=== PATIENT | female | born 1950 | race Caucasian/White ===

== ENCOUNTER → 2017-09-30 14:54 | Outpatient (CLI) | payer MEDICARE, SELFPAY ==
[2017-09-30 17:38] LABS: Absolute Lymphocyte Count 2.61 X10^3/ul (0.83-4.51); Absolute Neutrophil Count 6.1 X10^3/uL (2.0-7.7); Basophil# 0.04 X10^3/uL; Basophil% 0.4 % (0-1); Eosinophil# 0.18 X10^3/uL; Eosinophils% 1.9 % (0-5); Hematocrit 39.9 % (37-47); Hemoglobin 12.9 g/dl (12.0-15.0); Lymphocyte # 2.61 X10^3/ul (4.0); Mean Corp Hgb Conc 32.3 g/gl (32-36); Mean Corpuscular Volume 86.6 fL (81-99); Mean Platelet Vol. 10.8 fl (6.2-12.0); Monocyte# 0.77 X10^3/uL; Neutrophil # 6.06 X10^3/uL (2.7-7.7); Neutrophil % 62.5 % (47-70); Platelet Count 356 K/mm3 (150-450); RBC Distribution Width CV 13.7 % (11.6-14.6); Red Blood Count 4.61 M/mm3 (4.2-5.4); White Blood Count 9.7 K/mm3 (4.4-11.0)
[2017-09-30 17:54] LABS: POSITIVE COUNT NO; POSITIVE DIFFERENTIAL NO; POSITIVE MORPHOLOGY NO
[2017-09-30 18:01] LABS: ALB/GLOB Ratio 0.9 RATIO (0.9-2.4); AST(SGOT) 20 U/L (15-37); Alanine Aminotransfer ALT/SGPT 32 U/L (13-56); Albumin, Serum 3.7 g/dL (3.2-5.0); Alkaline Phosphatase 108 U/L (45-117); Anion Gap 11 (5-15); BUN 18 mg/dL (7-18); BUN/Creat Ratio 25.5 RATIO (10-20); Calcium,Total 9.4 mg/dL (8.5-10.1); Chloride 103 mmol/L (98-107); Cholesterol 142 mg/dL (200); Creatinine, Serum 0.71 mg/dL (0.55-1.02); EST Glomerular Filtration Rate 88 mL/min (>60); Est Glom Filt Rate - Afr Amer 106 mL/min (>60); Globulin 4.2 g/dL (2.2-4.2); Glucose 89 mg/dL (74-106); High Density Lipoprotein 50 mg/dL; Potassium 3.7 mmol/L (3.5-5.1); Protein, Total 7.9 g/dL (6.4-8.2); Sodium Level 140 mmol/L (136-145); Thyroid Stim Hormone (TSH) 1.54 uIU/mL (0.358-3.74); Triglycerides 134 mg/dL; Very Low Density Lipoprotein 27 mg/dL (5-40)
[2017-10-01 09:12] LABS: Vitamin D,25 Hydroxy 11.2 ng/mL (19.95-100.01)
[2017-10-02 11:38] LABS: Hep C Antibodies <0.1 s/co ratio (0.0-0.9)
== END ==
PROVIDERS: Family Provider Family Medicine Geriatric Medicine; PCP Family Medicine Geriatric Medicine; Visit Provider Family Medicine Geriatric Medicine
DX: E11.9 Type 2 diabetes mellitus without complications (principal); I10 Essential (primary) hypertension; E78.4 Other hyperlipidemia; E55.9 Vitamin D deficiency, unspecified; Z13.89 Encounter for screening for other disorder
CPT/HCPCS: 36415; 80053; 80061; 82306; 84443; 85025; 86803

== ENCOUNTER → 2017-10-23 08:41 | Outpatient (CLI) | payer MEDICARE, SELFPAY ==
--- NOTE | 2017-10-23 06:41 | HPBI_ITS ---
MAMMOGRAPHY - BILATERAL SCREENING REASON FOR EXAM: Female, 67 years old. Routine annual screening examination. PERTINENT HISTORY: Non-contributory. TECHNIQUE: Digital bilateral breast tomi (3D mammographic acquisition) in the CC and MLO projections. 2-D mediolateral oblique (MLO) and craniocaudad (CC) views of both breasts were obtained. CAD: Full Field Digital Mammography with Computer Added Detection was performed. COMPARISON: Comparison is made with prior outside examination dated December 04, 2015. FINDINGS: Breast Composition: The breasts are almost entirely fatty. There are no dominant masses or suspicious calcifications. Stable 6.5 mm well-defined nodule in the anterior superior lateral portion of the left breast. This most likely represent a small lymph node. Stable bilateral benign appearing axillary lymph nodes. No other significant abnormalities are identified. There has been no significant change since the prior study. HPBI/SCREENING MAMM (CAD), BILAT IMPRESSION: Stable bilateral screening mammogram. Yearly follow-up mammogram recommended. (A) ASSESSMENT CATEGORY: BIRADS Category 2: Benign. A letter regarding these results will be sent to the patient by the facility within 30 days. Approximately 10% of breast cancers are not detected by mammography. A normal mammogram should not delay biopsy of a clinically suspicious abnormality. [id number] Electronically Signed: Alden Berg MD at 9:56 EST Tel [phone], Service support ,
== END ==
PROVIDERS: Family Provider Family Medicine Geriatric Medicine; PCP Family Medicine Geriatric Medicine; Visit Provider Family Medicine Geriatric Medicine
DX: Z12.31 Encounter for screening mammogram for malignant neoplasm of breast (principal)
CPT/HCPCS: 77063; 77067

== ENCOUNTER → 2018-03-31 11:29 | Outpatient (CLI) | payer MEDICARE, SELFPAY ==
[2018-03-31 12:35] LABS: Absolute Lymphocyte Count 2.01 X10^3/ul (0.83-4.51); Absolute Neutrophil Count 3.9 X10^3/uL (2.0-7.7); Basophil# 0.03 X10^3/uL; Basophil% 0.4 % (0-1); Eosinophil# 0.26 X10^3/uL; Eosinophils% 3.8 % (0-5); Hemoglobin 12.6 g/dl (12.0-15.0); Lymphocyte # 2.01 X10^3/ul (4.0); Lymphocyte % 29.7 % (19-41); Mean Corp Hgb Conc 32.3 g/gl (32-36); Mean Corpuscular Volume 86.7 fL (81-99); Mean Platelet Vol. 10.7 fl (6.2-12.0); Monocyte# 0.59 X10^3/uL; Monocyte% 8.7 % (0-10); Neutrophil # 3.87 X10^3/uL (2.7-7.7); Neutrophil % 57.3 % (47-70); Platelet Count 314 K/mm3 (150-450); RBC Distribution Width CV 13.2 % (11.6-14.6); RBC Distribution Width SD 40.5 fl (35.1-43.9); White Blood Count 6.8 K/mm3 (4.4-11.0)
[2018-03-31 12:40] LABS: POSITIVE COUNT NO; POSITIVE DIFFERENTIAL NO; POSITIVE MORPHOLOGY NO
[2018-03-31 12:54] LABS: ALB/GLOB Ratio 0.8 RATIO (0.9-2.4); AST(SGOT) 21 U/L (15-37); Alanine Aminotransfer ALT/SGPT 30 U/L (13-56); Albumin, Serum 3.5 g/dL (3.2-5.0); Alkaline Phosphatase 101 U/L (45-117); Anion Gap 7 (5-15); BUN 11 mg/dL (7-18); BUN/Creat Ratio 14.7 RATIO (10-20); Calcium,Total 9.4 mg/dL (8.5-10.1); Chloride 104 mmol/L (98-107); Cholesterol 102 mg/dL (200); Creatinine, Serum 0.75 mg/dL (0.55-1.02); EST Glomerular Filtration Rate 82 mL/min (>60); Est Glom Filt Rate - Afr Amer 99 mL/min (>60); Globulin 4.5 g/dL (2.2-4.2); Glucose 92 mg/dL (74-106); High Density Lipoprotein 43 mg/dL; Potassium 3.7 mmol/L (3.5-5.1); Sodium Level 140 mmol/L (136-145); Thyroid Stim Hormone (TSH) 1.58 uIU/mL (0.358-3.74); Triglycerides 129 mg/dL; Very Low Density Lipoprotein 26 mg/dL (5-40)
[2018-04-01 08:36] LABS: Vitamin D,25 Hydroxy 32.8 ng/mL (29.95-100.01)
== END ==
PROVIDERS: Family Provider Family Medicine Geriatric Medicine; PCP Family Medicine Geriatric Medicine; Visit Provider Family Medicine Geriatric Medicine
DX: E11.9 Type 2 diabetes mellitus without complications (principal); I10 Essential (primary) hypertension; E78.4 Other hyperlipidemia; E55.9 Vitamin D deficiency, unspecified
CPT/HCPCS: 36415; 80053; 80061; 82306; 84443; 85025

== ENCOUNTER → 2018-10-01 15:02 | Outpatient (CLI) | payer MEDICARE, SELFPAY ==
[2018-10-01 17:01] LABS: Absolute Lymphocyte Count 2.09 X10^3/ul (0.83-4.51); Absolute Neutrophil Count 4.3 X10^3/uL (2.0-7.7); Basophil# 0.04 X10^3/uL; Basophil% 0.5 % (0-1); Eosinophil# 0.25 X10^3/uL; Eosinophils% 3.4 % (0-5); Hematocrit 41.4 % (37-47); Hemoglobin 12.6 g/dl (12.0-15.0); Lymphocyte # 2.09 X10^3/ul (4.0); Lymphocyte % 28.4 % (19-41); Mean Corp Hgb Conc 30.4 g/gl (32-36); Mean Corpuscular Hgb 26.8 pg (27.0-32.0); Mean Corpuscular Volume 87.9 fL (81-99); Mean Platelet Vol. 10.3 fl (6.2-12.0); Monocyte# 0.64 X10^3/uL; Monocyte% 8.7 % (0-10); Neutrophil # 4.31 X10^3/uL (2.7-7.7); Neutrophil % 58.6 % (47-70); Platelet Count 305 K/mm3 (150-450); RBC Distribution Width SD 44.9 fl (35.1-43.9); Red Blood Count 4.71 M/mm3 (4.2-5.4); White Blood Count 7.4 K/mm3 (4.4-11.0)
[2018-10-01 17:02] LABS: POSITIVE COUNT NO; POSITIVE DIFFERENTIAL NO; POSITIVE MORPHOLOGY NO
[2018-10-01 17:15] LABS: Vitamin D,25 Hydroxy 18.4 ng/mL (29.95-100.01)
[2018-10-01 17:28] LABS: BUN 13 mg/dL (7-18); Creatinine, Serum 0.73 mg/dL (0.55-1.02); Glucose 118 mg/dL (74-106)
[2018-10-01 17:29] LABS: ALB/GLOB Ratio 0.9 RATIO (0.9-2.4); AST(SGOT) 21 U/L (15-37); Alanine Aminotransfer ALT/SGPT 32 U/L (13-56); Albumin, Serum 3.6 g/dL (3.2-5.0); Alkaline Phosphatase 107 U/L (45-117); Anion Gap 11 (5-15); BUN/Creat Ratio 17.9 RATIO (10-20); Calcium,Total 9.3 mg/dL (8.5-10.1); Chloride 105 mmol/L (98-107); Cholesterol 99 mg/dL (200); EST Glomerular Filtration Rate 85 mL/min (>60); Est Glom Filt Rate - Afr Amer 102 mL/min (>60); Globulin 4.2 g/dL (2.2-4.2); High Density Lipoprotein 47 mg/dL; Potassium 3.9 mmol/L (3.5-5.1); Protein, Total 7.8 g/dL (6.4-8.2); Sodium Level 141 mmol/L (136-145); Thyroid Stim Hormone (TSH) 1.79 uIU/mL (0.358-3.74); Triglycerides 166 mg/dL; Very Low Density Lipoprotein 33 mg/dL (5-40)
== END ==
PROVIDERS: Family Provider Family Medicine Geriatric Medicine; PCP Family Medicine Geriatric Medicine; Visit Provider Family Medicine Geriatric Medicine
DX: E11.9 Type 2 diabetes mellitus without complications (principal); I10 Essential (primary) hypertension; E78.49 Other hyperlipidemia; E55.9 Vitamin D deficiency, unspecified
CPT/HCPCS: 36415; 80053; 80061; 82306; 84443; 85025

== ENCOUNTER → 2019-04-07 10:29 | Outpatient (CLI) | payer MEDICARE, SELFPAY ==
[2019-04-07 12:15] LABS: Absolute Neutrophil Count 7.2 X10^3/uL (2.0-7.7); Basophil# 0.04 X10^3/uL; Basophil% 0.4 % (0-1); Eosinophil# 0.21 X10^3/uL; Eosinophils% 2.1 % (0-5); Hematocrit 37.9 % (37-47); Hemoglobin 12.3 g/dL (12.0-15.0); Lymphocyte % 19.8 % (19-41); Mean Corp Hgb Conc 32.5 g/dL (32-36); Mean Corpuscular Hgb 28.5 pg (27.0-32.0); Mean Corpuscular Volume 87.7 fL (81-99); Mean Platelet Vol. 10.1 fl (6.2-12.0); Monocyte# 0.63 X10^3/uL; Monocyte% 6.3 % (0-10); NRBC Flagged by Analyzer 0 % (0-5); Neutrophil # 7.15 X10^3/uL (2.7-7.7); Neutrophil % 70.9 % (47-70); Platelet Count 296 K/mm3 (150-450); RBC Distribution Width CV 13.3 % (11.6-14.6); RBC Distribution Width SD 43.1 fl (35.1-43.9); Red Blood Count 4.32 M/mm3 (4.2-5.4); White Blood Count 10.1 K/mm3 (4.4-11.0)
[2019-04-07 12:35] LABS: Vitamin D,25 Hydroxy 16.9 ng/mL (29.95-100.01)
[2019-04-07 12:37] LABS: ALB/GLOB Ratio 0.8 RATIO (0.9-2.4); AST(SGOT) 16 U/L (15-37); Alanine Aminotransfer ALT/SGPT 30 U/L (13-56); Albumin, Serum 3.2 g/dL (3.2-5.0); Alkaline Phosphatase 104 U/L (45-117); Anion Gap 4 (5-15); BUN 15 mg/dL (7-18); BUN/Creat Ratio 23.1 RATIO (10-20); Calcium,Total 9.1 mg/dL (8.5-10.1); Chloride 109 mmol/L (98-107); Cholesterol 94 mg/dL (200); Creatinine, Serum 0.65 mg/dL (0.55-1.02); EST Glomerular Filtration Rate 97 mL/min (>60); Est Glom Filt Rate - Afr Amer 117 mL/min (>60); Glucose 117 mg/dL (74-106); High Density Lipoprotein 62 mg/dL; Potassium 3.7 mmol/L (3.5-5.1); Protein, Total 7.2 g/dL (6.4-8.2); Sodium Level 141 mmol/L (136-145); Thyroid Stim Hormone (TSH) 1.19 uIU/mL (0.358-3.74); Triglycerides 78 mg/dL; Very Low Density Lipoprotein 16 mg/dL (5-40)
== END ==
PROVIDERS: Family Provider Family Medicine Geriatric Medicine; PCP Family Medicine Geriatric Medicine; Visit Provider Family Medicine Geriatric Medicine
DX: E11.9 Type 2 diabetes mellitus without complications (principal); I10 Essential (primary) hypertension; E78.5 Hyperlipidemia, unspecified; E55.9 Vitamin D deficiency, unspecified
CPT/HCPCS: 36415; 80053; 80061; 82306; 84443; 85025

== ENCOUNTER → 2019-10-06 09:17 | Outpatient (CLI) | payer MEDICARE, SELFPAY ==
[2019-10-06 12:31] LABS: Absolute Lymphocyte Count 2.16 X10^3/uL (0.83-4.51); Absolute Neutrophil Count 4.9 X10^3/uL (2.0-7.7); Basophil# 0.04 X10^3/uL; Basophil% 0.5 % (0-1); Eosinophil# 0.27 X10^3/uL; Eosinophils% 3.3 % (0-5); Hematocrit 39.9 % (37-47); Hemoglobin 12.5 g/dL (12.0-15.0); Lymphocyte # 2.16 X10^3/ul (4.0); Lymphocyte % 26.7 % (19-41); Mean Corp Hgb Conc 31.3 g/dL (32-36); Mean Corpuscular Hgb 27.6 pg (27.0-32.0); Mean Corpuscular Volume 88.1 fL (81-99); Mean Platelet Vol. 10.3 fl (6.2-12.0); Monocyte# 0.72 X10^3/uL; Monocyte% 8.9 % (0-10); NRBC Flagged by Analyzer 0 % (0-5); Neutrophil # 4.87 X10^3/uL (2.7-7.7); Neutrophil % 60.1 % (47-70); Platelet Count 328 K/mm3 (150-450); RBC Distribution Width CV 13.7 % (11.6-14.6); RBC Distribution Width SD 43.6 fl (35.1-43.9); Red Blood Count 4.53 M/mm3 (4.2-5.4); White Blood Count 8.1 K/mm3 (4.4-11.0)
[2019-10-06 12:58] LABS: Vitamin D,25 Hydroxy 21.6 ng/mL (29.95-100.01)
[2019-10-06 12:59] LABS: ALB/GLOB Ratio 0.8 RATIO (0.9-2.4); AST(SGOT) 27 U/L (15-37); Alanine Aminotransfer ALT/SGPT 41 U/L (13-56); Albumin, Serum 3.6 g/dL (3.2-5.0); Alkaline Phosphatase 103 U/L (45-117); Anion Gap 6 (5-15); BUN 16 mg/dL (7-18); BUN/Creat Ratio 20.9 RATIO (10-20); Calcium,Total 9.5 mg/dL (8.5-10.1); Chloride 103 mmol/L (98-107); Cholesterol 102 mg/dL (200); Creatinine, Serum 0.76 mg/dL (0.55-1.02); EST Glomerular Filtration Rate 80 mL/min (>60); Est Glom Filt Rate - Afr Amer 96 mL/min (>60); Globulin 4.4 g/dL (2.2-4.2); Glucose 136 mg/dL (74-106); High Density Lipoprotein 48 mg/dL; Potassium 3.9 mmol/L (3.5-5.1); Sodium Level 138 mmol/L (136-145); Thyroid Stim Hormone (TSH) 1.57 uIU/mL (0.358-3.74); Triglycerides 146 mg/dL; Very Low Density Lipoprotein 29 mg/dL (5-40)
== END ==
PROVIDERS: PCP Family Medicine Geriatric Medicine; Visit Provider Family Medicine Geriatric Medicine
DX: E11.9 Type 2 diabetes mellitus without complications (principal); E55.9 Vitamin D deficiency, unspecified; E78.5 Hyperlipidemia, unspecified; R53.83 Other fatigue
CPT/HCPCS: 36415; 80053; 80061; 82306; 84443; 85025

== ENCOUNTER → 2020-02-23 11:43 | Outpatient (CLI) | payer MEDICARE, SELFPAY ==
--- NOTE | 2020-02-23 11:51 | RAD_ITS ---
STUDY: X-RAY - CERVICAL SPINE REASON FOR EXAM: Female, 69 years old. NECK PAIN. TECHNIQUE: 3 view(s) of the cervical spine were obtained. COMPARISON: None FINDINGS: Normal anterior atlantoaxial articulation. Normal odontoid process. Normal cervical lordosis. Congenital fusion of C2 and C3. Degenerative disc disease at the C4-5, C5-6, and C6-7 levels. Clip in the neck. RAD/Cerv Spine 2 or 3 Views IMPRESSION: Congenital fusion of C2 and C3. Degenerative disc disease at the C4-5, C5-6, and C6-7 levels. Electronically Signed: Arias Hwang MD at 23:13 EDT Tel , Service support ,
== END ==
PROVIDERS: PCP Family Medicine Geriatric Medicine; Referring Provider Family Medicine Geriatric Medicine; Visit Provider Family Medicine Geriatric Medicine
DX: M54.2 Cervicalgia (principal)
CPT/HCPCS: 72040

== ENCOUNTER → 2020-04-05 11:17 | Outpatient (CLI) | payer MEDICARE, SELFPAY ==
[2020-04-05 11:58] LABS: Absolute Lymphocyte Count 2.04 X10^3/uL (0.83-4.51); Absolute Neutrophil Count 6.5 X10^3/uL (2.0-7.7); Basophil# 0.03 X10^3/uL; Basophil% 0.3 % (0-1); Eosinophil# 0.16 X10^3/uL; Eosinophils% 1.7 % (0-5); Hematocrit 39.8 % (37-47); Hemoglobin 12.4 g/dL (12.0-15.0); Lymphocyte # 2.04 X10^3/ul (4.0); Lymphocyte % 21.8 % (19-41); Mean Corp Hgb Conc 31.2 g/dL (32-36); Mean Corpuscular Hgb 27.7 pg (27.0-32.0); Mean Corpuscular Volume 88.8 fL (81-99); Mean Platelet Vol. 10.6 fl (6.2-12.0); Monocyte# 0.63 X10^3/uL; Monocyte% 6.7 % (0-10); NRBC Flagged by Analyzer 0 % (0-5); Neutrophil # 6.47 X10^3/uL (2.7-7.7); Neutrophil % 69.1 % (47-70); Platelet Count 332 K/mm3 (150-450); RBC Distribution Width CV 14.2 % (11.6-14.6); RBC Distribution Width SD 45.7 fl (35.1-43.9); Red Blood Count 4.48 M/mm3 (4.2-5.4); White Blood Count 9.4 K/mm3 (4.4-11.0)
[2020-04-05 12:21] LABS: Vitamin D,25 Hydroxy 21.5 ng/mL
[2020-04-05 12:35] LABS: ALB/GLOB Ratio 0.8 RATIO (0.9-2.4); AST(SGOT) 27 U/L (15-37); Alanine Aminotransfer ALT/SGPT 45 U/L (13-56); Albumin, Serum 3.5 g/dL (3.2-5.0); Alkaline Phosphatase 104 U/L (45-117); Anion Gap 6 (5-15); BUN 18 mg/dL (7-18); BUN/Creat Ratio 23.5 RATIO (10-20); Calcium,Total 9.4 mg/dL (8.5-10.1); Chloride 101 mmol/L (98-107); Cholesterol 97 mg/dL (200); Creatinine, Serum 0.77 mg/dL (0.55-1.02); EST Glomerular Filtration Rate 79 mL/min (>60); Est Glom Filt Rate - Afr Amer 96 mL/min (>60); Globulin 4.2 g/dL (2.2-4.2); Glucose 140 mg/dL (74-106); High Density Lipoprotein 57 mg/dL; Potassium 3.7 mmol/L (3.5-5.1); Protein, Total 7.7 g/dL (6.4-8.2); Sodium Level 136 mmol/L (136-145); Thyroid Stim Hormone (TSH) 1.13 uIU/mL (0.358-3.74); Triglycerides 80 mg/dL; Very Low Density Lipoprotein 16 mg/dL (5-40)
== END ==
PROVIDERS: PCP Family Medicine Geriatric Medicine; Visit Provider Family Medicine Geriatric Medicine
DX: E11.9 Type 2 diabetes mellitus without complications (principal); I10 Essential (primary) hypertension; E78.5 Hyperlipidemia, unspecified; E55.9 Vitamin D deficiency, unspecified
CPT/HCPCS: 36415; 80053; 80061; 82306; 84443; 85025

== ENCOUNTER → 2020-07-04 11:30 | Outpatient (CLI) | payer MEDICARE, SELFPAY ==
[2020-07-04 12:55] LABS: Vitamin D,25 Hydroxy 16.1 ng/mL
[2020-07-04 13:02] LABS: ALB/GLOB Ratio 0.9 RATIO (0.9-2.4); AST(SGOT) 20 U/L (15-37); Alanine Aminotransfer ALT/SGPT 34 U/L (13-56); Albumin, Serum 3.6 g/dL (3.2-5.0); Alkaline Phosphatase 98 U/L (45-117); Anion Gap 6 (5-15); BUN 13 mg/dL (7-18); Calcium,Total 9.7 mg/dL (8.5-10.1); Chloride 104 mmol/L (98-107); Cholesterol 118 mg/dL (200); Creatinine, Serum 0.72 mg/dL (0.55-1.02); EST Glomerular Filtration Rate 85 mL/min (>60); Est Glom Filt Rate - Afr Amer 103 mL/min (>60); Globulin 4.1 g/dL (2.2-4.2); Glucose 88 mg/dL (74-106); High Density Lipoprotein 57 mg/dL; Potassium 3.5 mmol/L (3.5-5.1); Protein, Total 7.7 g/dL (6.4-8.2); Sodium Level 139 mmol/L (136-145); Thyroid Stim Hormone (TSH) 1.46 uIU/mL (0.358-3.74); Triglycerides 114 mg/dL; Very Low Density Lipoprotein 23 mg/dL (5-40)
[2020-07-04 13:54] LABS: Absolute Lymphocyte Count 2.45 X10^3/uL (0.83-4.51); Absolute Neutrophil Count 4.8 X10^3/uL (2.0-7.7); Basophil# 0.04 X10^3/uL; Basophil% 0.5 % (0-1); Eosinophil# 0.16 X10^3/uL; Hematocrit 38.9 % (37-47); Hemoglobin 11.9 g/dL (12.0-15.0); Lymphocyte # 2.45 X10^3/ul (4.0); Lymphocyte % 30.2 % (19-41); Mean Corp Hgb Conc 30.6 g/dL (32-36); Mean Corpuscular Hgb 27.7 pg (27.0-32.0); Mean Corpuscular Volume 90.5 fL (81-99); Mean Platelet Vol. 10.2 fl (6.2-12.0); Monocyte# 0.62 X10^3/uL; Monocyte% 7.7 % (0-10); NRBC Flagged by Analyzer 0 % (0-5); Neutrophil # 4.81 X10^3/uL (2.7-7.7); Neutrophil % 59.4 % (47-70); Platelet Count 358 K/mm3 (150-450); RBC Distribution Width CV 13.3 % (11.6-14.6); RBC Distribution Width SD 44.2 fl (35.1-43.9); White Blood Count 8.1 K/mm3 (4.4-11.0)
== END ==
PROVIDERS: PCP Family Medicine Geriatric Medicine; Visit Provider Family Medicine Geriatric Medicine
DX: E11.9 Type 2 diabetes mellitus without complications (principal); I10 Essential (primary) hypertension; E78.5 Hyperlipidemia, unspecified; E55.9 Vitamin D deficiency, unspecified
CPT/HCPCS: 36415; 80053; 80061; 82306; 84443; 85025

== ENCOUNTER → 2020-09-12 12:09 | Outpatient (CLI) | payer MEDICARE, SELFPAY ==
--- NOTE | 2020-09-12 12:15 | RAD_ITS ---
STUDY: X-RAY - LEFT KNEE REASON FOR EXAM: Female, 70 years old. bilateral knee pain, left more than right -- NKI TECHNIQUE: 4 view(s) of the knee. COMPARISON: X-ray right knee. FINDINGS: Normal visualized distal femur. Normal visualized proximal tibia and fibula. Normal proximal tibiofibular articulation. There is severe degenerative arthrosis of the medial femorotibial compartment with severe joint space narrowing. There is moderate degenerative arthrosis of the lateral femorotibial compartment with moderate joint space narrowing. There is hhvuacry-wp-tvfyio degenerative arthrosis of the patellofemoral articulation. There is a small knee joint effusion. The soft tissue structures are unremarkable. RAD/Knee 4 or More Views IMPRESSION: Degenerative arthrosis. Small joint effusion. No demonstrated fracture, dislocation, or destructive osseous lesion. Electronically Signed: Subhash Nguyễn MD at 5:33 EST , Service support ,
--- NOTE | 2020-09-12 12:15 | RAD_ITS ---
STUDY: X-RAY - RIGHT KNEE REASON FOR EXAM: Female, 70 years old. bilateral knee pain, left more than right -- NKI TECHNIQUE: 4 view(s) of the knee. COMPARISON: X-ray left knee. FINDINGS: Normal visualized distal femur. Normal visualized proximal tibia and fibula. Normal proximal tibiofibular articulation. There is severe degenerative arthrosis of the medial femorotibial compartment with severe joint space narrowing. There is mild degenerative arthrosis of the lateral femorotibial compartment. There is moderate degenerative arthrosis of the patellofemoral articulation. There is a small knee joint effusion. The soft tissue structures are unremarkable. RAD/Knee 4 or More Views IMPRESSION: Degenerative arthrosis. Small joint effusion. No demonstrated fracture, dislocation, or destructive osseous lesion. Electronically Signed: Subhash Nguyễn MD at 5:42 EST , Service support ,
== END ==
PROVIDERS: PCP Family Medicine Geriatric Medicine; Visit Provider Family Medicine Geriatric Medicine
DX: M25.561 Pain in right knee (principal); M25.562 Pain in left knee
CPT/HCPCS: 73564

== ENCOUNTER → 2020-10-11 09:20 | Outpatient (CLI) | payer MEDICARE, SELFPAY ==
[2020-09-25 13:49] VITALS: BMI 39.0
[2020-10-11 11:57] LABS: Absolute Lymphocyte Count 1.99 X10^3/uL (0.83-4.51); Absolute Neutrophil Count 4.2 X10^3/uL (2.0-7.7); Basophil# 0.04 X10^3/uL; Basophil% 0.6 % (0-1); Eosinophil# 0.16 X10^3/uL; Eosinophils% 2.3 % (0-5); Hematocrit 39.4 % (37-47); Hemoglobin 12.2 g/dL (12.0-15.0); Lymphocyte # 1.99 X10^3/ul (4.0); Lymphocyte % 28.6 % (19-41); Mean Corpuscular Hgb 27.7 pg (27.0-32.0); Mean Corpuscular Volume 89.3 fL (81-99); Mean Platelet Vol. 10.1 fl (6.2-12.0); Monocyte% 8.6 % (0-10); NRBC Flagged by Analyzer 0 % (0-5); Neutrophil # 4.15 X10^3/uL (2.7-7.7); Neutrophil % 59.5 % (47-70); Platelet Count 337 K/mm3 (150-450); RBC Distribution Width CV 14.6 % (11.6-14.6); RBC Distribution Width SD 47.8 fl (35.1-43.9); Red Blood Count 4.41 M/mm3 (4.2-5.4)
[2020-10-11 12:28] LABS: Vitamin D,25 Hydroxy 15.2 ng/mL
[2020-10-11 12:40] LABS: ALB/GLOB Ratio 0.9 RATIO (0.9-2.4); AST(SGOT) 27 U/L (15-37); Alanine Aminotransfer ALT/SGPT 48 U/L (13-56); Albumin, Serum 3.7 g/dL (3.2-5.0); Alkaline Phosphatase 99 U/L (45-117); Anion Gap 6 (5-15); BUN 19 mg/dL (7-18); BUN/Creat Ratio 27.4 RATIO (10-20); Calcium,Total 9.4 mg/dL (8.5-10.1); Chloride 103 mmol/L (98-107); Cholesterol 114 mg/dL (200); Creatinine, Serum 0.69 mg/dL (0.55-1.02); EST Glomerular Filtration Rate 89 mL/min (>60); Est Glom Filt Rate - Afr Amer 107 mL/min (>60); Glucose 97 mg/dL (74-106); High Density Lipoprotein 72 mg/dL; Potassium 3.6 mmol/L (3.5-5.1); Protein, Total 7.7 g/dL (6.4-8.2); Sodium Level 137 mmol/L (136-145); Thyroid Stim Hormone (TSH) 1.37 uIU/mL (0.358-3.74); Triglycerides 68 mg/dL; Very Low Density Lipoprotein 14 mg/dL (5-40)
== END ==
PROVIDERS: PCP Family Medicine Geriatric Medicine; Visit Provider Family Medicine Geriatric Medicine
DX: E11.9 Type 2 diabetes mellitus without complications (principal); I10 Essential (primary) hypertension; E78.5 Hyperlipidemia, unspecified; E55.9 Vitamin D deficiency, unspecified
CPT/HCPCS: 36415; 80053; 80061; 82306; 84443; 85025

== ENCOUNTER → 2020-11-30 14:43 | Outpatient (CLI) | payer MEDICARE, SELFPAY ==
--- NOTE | 2020-11-30 14:44 | CT_ITS ---
STUDY: CT RIGHT LOWER EXTREMITY WITHOUT CONTRAST REASON FOR EXAM: Right knee osteoarthritis, surgical planning. TECHNIQUE: Transaxial CT imaging of the lower extremity was performed. Coronal and sagittal images were reformatted. Individualized dose optimization techniques were used for this CT. COMPARISON: Radiographs 09/12/2020. FINDINGS: Knee: There are marginal osteophytes, subchondral eburnation/subchondral cystic change and loss of joint space of the medial femorotibial compartment (coronal reconstruction 31). There are marginal osteophytes of the lateral femorotibial compartment without joint space narrowing of the lateral femorotibial compartment. There are marginal osteophytes and mild joint space narrowing of the patellofemoral compartment (sagittal reconstruction 31). There is cystic change in the distal femur and proximal tibia near the attachment sites of the anterior cruciate ligament. Normal proximal tibiofibular articulation. There is no joint effusion. The quadriceps tendon is grossly normal. The patellar tendon is grossly normal. Normal Hoffa''s fat pad. There is a small intra-articular body at the posterior aspect of the medial femoral condyle (sagittal reconstruction 50). There is mild vascular calcification. Hip: There is joint space narrowing of the left hip joint and mild subchondral cystic change of the lateral acetabulum (coronal reconstructions 77-80). Ankle: There is a subchondral cyst in the lateral aspect of the tibial plafond (inversion recovery coronal image 28). Normal posterior subtalar and visualized calcaneocuboid articulations. There is a dorsal osteophyte of the proximal navicular with joint space narrowing of the talonavicular articulation (sagittal reconstructions 30, 31). There is a posterior calcaneal enthesophyte (sagittal reconstruction 37). CT/Extremity Lower without Contra IMPRESSION: Osteoarthritis of the right knee. Electronically Signed: Steven Mcnamara MD at 10:47 EDT Tel , Service support ,
== END ==
PROVIDERS: PCP Family Medicine Geriatric Medicine; Referring Provider Orthopaedic Surgery; Visit Provider Orthopaedic Surgery
DX: M17.11 Unilateral primary osteoarthritis, right knee (principal)
CPT/HCPCS: 73700

== ENCOUNTER 2020-12-19 11:55 | Observation (INO) | payer MEDICARE, SELFPAY ==
[2020-09-25 13:49] VITALS: BMI 39.0
--- NOTE | 2020-12-12 08:32 | EKG12_ITS ---
Test Reason : PRE OP Blood Pressure : / mmHG Vent. Rate : 071 BPM Atrial Rate : 071 BPM P-R Int : 158 ms QRS Dur : 098 ms QT Int : 386 ms P-R-T Axes : 045 022 054 degrees QTc Int : 419 ms Normal sinus rhythm Incomplete right bundle branch block Confirmed by JESSICA CARR, MERI ([id number]), rewrite editor ADAN SUAZO ([id number]) on 12/13/2020 9:01:13 AM Referred By: KERA Confirmed By:MERI LOEPZ MD
[2020-12-12 09:58] LABS: Absolute Lymphocyte Count 1.71 X10^3/uL (0.83-4.51); Absolute Neutrophil Count 5.3 X10^3/uL (2.0-7.7); Basophil# 0.05 X10^3/uL; Basophil% 0.6 % (0-1); Eosinophil# 0.24 X10^3/uL; Hematocrit 38.5 % (37-47); Hemoglobin 12.1 g/dL (12.0-15.0); Lymphocyte # 1.71 X10^3/ul (0.83-4.51); Lymphocyte % 21.2 % (19-41); Mean Corp Hgb Conc 31.4 g/dL (32-36); Mean Corpuscular Hgb 28.1 pg (27.0-32.0); Mean Corpuscular Volume 89.3 fL (81-99); Mean Platelet Vol. 10.2 fl (6.2-12.0); Monocyte# 0.79 X10^3/uL; Monocyte% 9.8 % (0-10); NRBC Flagged by Analyzer 0 % (0-5); Neutrophil # 5.25 X10^3/uL (2.7-7.7); Neutrophil % 64.9 % (47-70); Platelet Count 343 K/mm3 (150-450); RBC Distribution Width CV 13.8 % (11.6-14.6); RBC Distribution Width SD 45.2 fl (35.1-43.9); Red Blood Count 4.31 M/mm3 (4.2-5.4); White Blood Count 8.1 K/mm3 (4.4-11.0)
[2020-12-12 10:05] LABS: Prothrombin Time (Protime)PT. 12.4 SECONDS (11.7-14.9)
[2020-12-12 10:06] LABS: Partial Thromboplast Time 25.9 Seconds (24.1-36.2)
[2020-12-12 10:20] LABS: Hemoglobin A1c 6.5 % (3.8-5.6)
[2020-12-12 10:28] LABS: Anion Gap 6 (5-15); BUN 17 mg/dL (7-18); BUN/Creat Ratio 26.2 RATIO (10-20); Calcium,Total 9.6 mg/dL (8.5-10.1); Chloride 104 mmol/L (98-107); Creatinine, Serum 0.65 mg/dL (0.55-1.02); EST Glomerular Filtration Rate 96 mL/min (>60); Est Glom Filt Rate - Afr Amer 116 mL/min (>60); Glucose 106 mg/dL (74-106); Potassium 3.7 mmol/L (3.5-5.1); Sodium Level 138 mmol/L (136-145)
[2020-12-12 10:48] LABS: Magnesium 2.1 mg/dL (1.6-2.6)
[2020-12-13 12:23] LABS: Fructosamine 246 umol/L (0-285)
[2020-12-19] VITALS (12 sets, daily range): BP systolic 102–127; BP diastolic 7–74; PULSE 76–95; RESP 16–18; TEMP 36.6–36.9; O2SAT 93–100; BMI 37.8; BMI 37.9
--- NOTE | 2020-12-19 07:11 | PCM.HP.BLA ---
History and Physical [id number]:[id number]: MARY BOSTON [facility] #:[id number]:1950 Provider:Dr. Wan Flores DOAge/Sex: 70/F Location:[place]:Signed Intake Intake Visit Reasons: right knee Allergies No Known Allergies Allergy (Verified 12/05/20 12:55) PFSH Social History (Updated 12/08/20 @ 12:[address] Wan Flores DO) Smoking Status: Former smoker HPI right knee: Details: Parts of this documentation were recorded by a scribe, this documentation accurately reflects the service provided and the decisions made by me, Dr. Wan Flores DO 12/08/20 0741. MARY BOSTON is a 70 year old F here today for right knee IOVERA treatment. SHe continues to have right knee pain. The abrassion just below her knee has closed. No s/sx of infection noted. ROS Musc Reports joint pain, Reports joint swelling, Denies numbness, Denies tingling Neuro No numbness, No tingling Ortho Exam General General: Yes no acute distress, Yes well groomed Neurologic: Yes alert, Yes oriented x3 Psychologic: Yes reasonable and appropriate Right Knee Skin/Wound: No erythema, No ecchymosis, No swelling Homans Sign: No Knee ROM: Yes ROM-Extension -20 to 0, Yes ROM-Flexion 0-140 Stability: NML: Anterior Drawer, NML: Posterior Drawer, NML: Valgus 0, NML: Valgus 30, NML: Varus 0, NML: Varus 30 Apprehension with Lateral Translation: No Patella Grind: Yes KNEE: On right knee she has a wound that is about half inch by half inch. With granulation tissue no sign of infection. No joint effusion. 2/4 pulses. 2+ pitting edema up to the proximal tibia. Office Procedures Iovera Details:: Preoperative diagnosis : right knee osteoarthritis Postoperative diagnosis: Same Procedure: Cryotherapy with Iovera device to anterior femoral cutaneous nerve and 2 branches of the infrapatellar saphenous nerve III nerves in total Description of procedure: Patient was brought back to the procedure room the operative extremity was identified by both patient and physician. The PIP flexion crease was measured to the midpoint of the patella and this distance was divided in 3 resulting in 10 cm location proximal to the midpoint of the patella. This line was extended medial and lateral to the extent of the edges of the patella. This was our treatment line for the anterior femoral cutaneous nerve. A second treatment line was made 5 cm medial to the inferior pole of the patella and 5 cm distally. The leg was prepped with alcohol and Betadine. Lidocaine with epi was used along the treatment lines. Using the Iovera device treatment lines were treated with 1 minute cycles. Reproduction of paresthesias was monitored in the area of nerve distribution. Once all 3 nerves were treated across the 2 treatment lines patient was cleaned and a light dressing with 4 x 4 and Valerio wrap was applied. Patient tolerated the procedure without complication. Supplemental Info 09/12/2020 x-ray of bilateral knees: Advanced tricompartmental arthrosis [id number] medial compartment Assessment & Plan Problems 1. Chronic pain of right knee M25.561; G89.29 Plan Patient wishes to proceed with IOVERA treatment at this time. Has her soap, ensure drinks and walker at home. Follow up 2 weeks post op or sooner if pain, swelling, numbness or associated symptoms, or concerns develop. All questions answered. Patient in agreement of plan. Orders Orders: Iovera Today M25.569 Coding Level of Care Code Attention Ocular Care Technologist Diagnoses Chronic pain of right knee M25.561; G89.29 12/08/20 1234<Electronically signed by Wan Flores DO>Date Wan Flores DO I have re-examined the patient. There are no clinical changes since date of exam
[2020-12-19] MEDS: Gabapentin 600 MG Tablet PO (07:22)
[2020-12-19] MEDS: Scopolamine 1mg/72hr Patch 1 PATCH TD (07:22)
[2020-12-19] MEDS: Acetaminophen 500 MG Tablet 1000 MG PO ×3 (07:22→21:42)
[2020-12-19] MEDS: Lactated Ringers 1,000 ML 999 ML IV (07:23)
[2020-12-19 07:40] LABS: Bedside Glucose 109 mg/dL (70-110)
[2020-12-19] MEDS: Cefazolin 2 GM in 0.9% Normal Saline 100 ML IV (08:07)
[2020-12-19] MEDS: Lactated Ringers 1,000 ML 125 ML IV ×3 (08:15→21:42)
[2020-12-19] MEDS: dexAMETHasone 10 MG/ML Vial IV (08:25)
[2020-12-19] MEDS: 0.9% Normal Saline (Pres. free 10 ML Vial (09:43)
[2020-12-19] MEDS: Bupivacaine Mpf 0.5% 30 ML VIAL (09:43)
[2020-12-19] MEDS: Epinephrine (1 mg/ml) 1 MG/ML VIAL (09:43)
[2020-12-19] MEDS: Betamethasone/Betamethasone 30 MG/5 ML Vial (09:43)
--- NOTE | 2020-12-19 10:25 | RAD_ITS ---
STUDY: X-RAY - RIGHT KNEE REASON FOR EXAM: Female, 70 years old. post op -- AP and Lateral xray of operative knee in PACU TECHNIQUE: 2 view(s) of the knee. COMPARISON: 09/12/2020. FINDINGS: Status post total knee arthroplasty. Surgical hardware intact/well aligned. No acute complications. Postoperative soft tissues with staple line. RAD/Knee 1 or 2 Views IMPRESSION: Uncomplicated right knee arthroplasty Electronically Signed: Dann Bo DO at 11:02 EDT Tel , Service support ,
--- NOTE | 2020-12-19 10:32 | OP.PCM_ITS ---
Report of Operation Date of Procedure: 12/19/20 Surgery/Procedure Performed:: Preoperative diagnosis: Right knee DJD Postoperative diagnosis: Same Procedure: Right total knee arthroplasty CT guided Robotic Assisted Implant: Jarrell triathlon cemented femoral component size 3, cemented tibial baseplate size 4, cemented asymmetric patella size 35, polyethylene X3 size 9 CS Anesthesia: Spinal with adductor canal block Tourniquet time: 30 minutes at 300 mmHg Complications: None Condition: Stable to PACU Estimated blood loss: 100 cc Indication for procedure: This is a 70-year-old female with long standing degenerative joint disease of the knee who has failed conservative treatment and wished to proceed with elective total knee arthroplasty. Risk benefits and alternatives were reviewed including; risk of bleeding, infection, nerve artery and tissue damage, continued pain, postoperative stiffness, venous thromboembolism, need for postoperative rehabilitation, mechanical feel to the knee, and expected postoperative course. The operative CT and templating was performed with component sizing Procedure: The patient was met in the preoperative holding area. The operative extremity was identified by both patient and physician and was marked. Patient was met by anesthesia. An adductor canal block was placed by anesthesia postoperatively the patient was brought back to the operating room on a wheeled cart and transferred to the operating table in the supine position. Anesthesia was started. A well-padded tourniquet was placed on the operative extremity. The patient was prepped and draped in the usual sterile fashion. A timeout was called to ensure the proper patient procedure and extremity were being contemplated. An Esmarch was used to exsanguinate the extremity. The tourniquet was inflated. A 10 blade scalpel was used to make a midline incision down through the skin and subcutaneous tissue. Skin retractors placed. Bovie was used to perform meticulous hemostasis. full-thickness flaps were elevated medial and lateral along the joint capsule. A deep blade scalpel was used to perform a medial parapatellar arthrotomy. The knee was brought to full extension. A Bovie was used to release the soft tissues off the most proximal aspect of the medial tibial plateau, a three-quarter inch curved osteotome was also used for this process. The infrapatellar fat pad was excised. The superior fat pad was excised partially anteriorolateraly and portion the anterioromedial pad was elevated from the femur. At this point our intra- articular femoral array was placed of a 45 degree angle proximal and posterior to the medial epicondyle. Our tibial array was placed greater than 1 hands breath below the incision at a 20 degree angle stab incisions were used for this case were attached and checked with the robotic software. Tourniquet was let down. At this point registration cuenca were taken throughout the knee as well as checkpoints placed in the femur and tibia once the knee was registered then tensioned the medial and lateral ligaments in extension and 90 degrees of flexion. We then used these numbers to adjust our components within parameters to balance the knee in both flexion and extension once this was done on our monitor we then proceeded with using the robotic arm to make our tibial plateau cut and anterior posterior and chamfer cuts and distal on the femur we then trialed and achieved the desired plan with a well-balanced knee. Lug holes were drilled in the femur the tibia preparation was completed with a fin punch and the patella was prepared by first using a caliper to ensure sufficient bone stock and a patellar reamer to remove the desired amount of bone locals were drilled for an asymmetric poly-. We then brought the knee through range of motion with excellent patellar tracking. We thoroughly irrigated the knee with a trial components were removed a posterior capsular injection with her standard cocktail was performed the aqua Mantis was also used to aid in hemostasis. Betadine rinse was allowed to sit and washed out components were cemented. Aricept rinse was then used followed by several more rate liters of irrigation after it was allowed to sit. Joint capsule was closed with #1 Ethibond uszpvj-er-iexll's followed by Vicryl in the subcutaneous tissues staple in the skin arrays and checkpoints were removed prior to closure all counts were correct stab incisions were closed with a stable standard dressing in the form of Mepilex for the main incision Xeroform 4 x 4 and Tegaderm over pin site holes. Thigh-high HARISH hose applied over top of dressing. Patient tolerated the procedure well and was directed to PACU in stable condition no intraoperative complications cushion gum applicator: None (Greg melo)
[2020-12-19 10:55] LABS: Bedside Glucose 164 mg/dL (70-110)
[2020-12-19] MEDS: metFORMIN HCl 1,000 MG Tablet 1000 MG PO (16:52)
[2020-12-19] MEDS: Cefazolin 1 GM/50 ML BAG IV (16:52)
[2020-12-19] MEDS: oxyCODONE 5 MG Tablet PO (19:16)
[2020-12-19] MEDS: Atorvastatin Calcium 40 MG Tablet PO (21:42)
[2020-12-19] MEDS: Senna/Docusate Sodium 1 Tablet 2 TABLET PO (21:42)
[2020-12-20 00:23] VITALS: BMI 37.9
[2020-12-20] MEDS: Cefazolin 1 GM/50 ML BAG IV ×2 (00:33→08:09)
[2020-12-20 02:38] VITALS: BP 116/52; PULSE 56; RESP 18; TEMP 36.8; O2SAT 93
[2020-12-20] MEDS: Ketorolac 15 MG/ML Vial IV (03:00)
[2020-12-20 03:34] VITALS: BMI 37.9
[2020-12-20 06:05] LABS: Hematocrit 31.8 % (37-47); Mean Corp Hgb Conc 31.4 g/dL (32-36); Mean Corpuscular Hgb 27.7 pg (27.0-32.0); Mean Corpuscular Volume 88.1 fL (81-99); Mean Platelet Vol. 9.9 fl (6.2-12.0); Platelet Count 276 K/mm3 (150-450); RBC Distribution Width CV 13.5 % (11.6-14.6); RBC Distribution Width SD 43.9 fl (35.1-43.9); Red Blood Count 3.61 M/mm3 (4.2-5.4); White Blood Count 16.9 K/mm3 (4.4-11.0)
[2020-12-20] MEDS: Acetaminophen 500 MG Tablet 1000 MG PO ×2 (06:08→13:56)
[2020-12-20] MEDS: APIXABAN 2.5 MG TABLET PO (06:08)
[2020-12-20] MEDS: Levothyroxine 50 MCG Tablet PO (06:08)
[2020-12-20 06:36] LABS: Anion Gap 6 (5-15); BUN 19 mg/dL (7-18); BUN/Creat Ratio 26.5 RATIO (10-20); Calcium,Total 8.8 mg/dL (8.5-10.1); Chloride 109 mmol/L (98-107); Creatinine, Serum 0.72 mg/dL (0.55-1.02); EST Glomerular Filtration Rate 86 mL/min (>60); Est Glom Filt Rate - Afr Amer 104 mL/min (>60); Glucose 146 mg/dL (74-106); Potassium 3.6 mmol/L (3.5-5.1); Sodium Level 141 mmol/L (136-145)
[2020-12-20] MEDS: Ascorbic Acid 500 MG Tablet 1000 MG PO (08:08)
[2020-12-20] MEDS: metFORMIN HCl 1,000 MG Tablet 1000 MG PO (08:08)
--- NOTE | 2020-12-20 08:08 | PN.ORTHO_ITS ---
Subjective Subjective: Seen and examined. Pain controlled denies chest pain shortness of breath nausea vomiting lightheadedness when up with therapy. Objective Data Objective Data Vital Signs: Vital Signs Temp Pulse Resp BP Pulse Ox 98.3 F 56 L 18 116/52 L 93 12/20/20 02:38 12/20/20 02:38 12/20/20 02:38 12/20/20 02:38 12/20/20 02:38 Oxygen Flow Rate (L/min) 6 Oxygen Delivery Method Room Air Weight: 234 lb 11.2 oz Body Mass Index (BMI) 37.8 Finger Stick Blood Glucose 164 Intake & Output: Intake and Output for Last 24 Hours 12/18/20 12/19/20 12/20/20 23:59 23:59 23:59 Intake Total 2767.75 / 2767.75 1425.00 / 1425.00 Balance 2767.75 / 2767.75 1425.00 / 1425.00 Lab / Micro Data Result Diagrams: 12/20/20 05:34 12/20/20 05:34 Labs: Laboratory Results - last 24 hr 12/19/20 12/20/20 12/20/20 10:54 05:34 05:34 WBC 16.9 H RBC 3.61 L Hgb 10.0 L Hct 31.8 L MCV 88.1 MCH 27.7 MCHC 31.4 L RDW Std Deviation 43.9 RDW Coeff of Nette 13.5 Plt Count 276 MPV 9.9 Sodium 141 Potassium 3.6 Chloride 109 H Carbon Dioxide 26.0 Anion Gap 6 BUN 19 H Creatinine 0.72 Estim Creat Clear Calc 49.00 Est GFR (MDRD) Af Amer 104 Est GFR (MDRD) Non-Af 86 BUN/Creatinine Ratio 26.5 H Glucose 146 H Calcium 8.8 POC Glucose 164 H Micro: Microbiology 12/12/20 08:47 Swab (Method) Nasal Screen MRSA/MSSA - Final Radiography Diagnostic Testing: Radiology Impression Knee X-Ray 12/19/20 10:25 IMPRESSION: Uncomplicated right knee arthroplasty Electronically Signed: Dann Bo DO at 11:02 EDT Tel , Service support , Physical Exam Const alert, oriented x3 and no apparent distress General Appearance: cooperative Extremity Extremity Narrative: Dressing clean dry and intact compartments soft neurov ascularly intact, Assessment & Plan Assessment/Plan (1) Total knee replacement status: Status: Acute Code(s): Z96.659 - Presence of unspecified artificial knee joint Qualifiers: Laterality: right Qualified Code(s): Z96.651 - Presence of right artificial knee joint Plan: Postop day #1 right total knee arthroplasty. Doing well pain controlled up with PT walking halls. No complaints of concern. DC home after PT start outpatient PT as scheduled. Follow-up 2 weeks
[2020-12-20] MEDS: Pioglitazone Hydrochloride 30 MG Tablet PO (08:09)
[2020-12-20] MEDS: oxyCODONE 5 MG Tablet PO ×2 (08:09→12:21)
[2020-12-20] MEDS: 0.9% Saline Lock 10 ML Syringe IV (08:09)
[2020-12-20 08:10] VITALS: BP 110/46; PULSE 65; RESP 18; TEMP 36.8; O2SAT 95
[2020-12-20 08:14] VITALS: BMI 37.9
--- NOTE | 2020-12-20 08:15 | PCM.DC ---
Discharge Instructions Outpatient Procedure Reason For Visit: TOTAL KNEE ROBOTIC RIGHT Diet Discharge Diet: 1999 Calorie Control Diet Activity Weight Bearing Status: Weight bearing as tolerated Dressing / Incision Call your doctor if you observe: Shortness of breath and Chest pain Additional Dressing/Incision Instructions:: Ice and elevate one week while not ambulating. Ambulation is encouraged. Weightbearing as tolerated. Use assistive devise for stability. Encourage FULL knee extension and flexion 1 time EVERY time you get up and down and MULTIPLE times per day. No showering 72 hours after surgery. Begin showering postop day #3. Remove the dressing prior to shower and gently wash with warm water and antibacterial soap then pat dry and place abdominal pad (or plain gauze) and HARISH hose over top. This is to be done daily. Do not submerge for 3 weeks. If not showering daily after the initial 72 hours then you must clean incision and change dressing daily. Do not allow animals near the incision area. Keep clean. Follow anticoagulation recommendations as prescribed. Do not take any NSAIDs while on blood thinner. Do not take any additional narcotic pain medication other than what was prescribed on you surgery day without discussing with physician. Start physical therapy. If you are not currently scheduled for physical therapy or you are unsure of appointment time please call office [facility] to arrange. Call Dr. Flores with any concerns. Follow Up Care Test Results: Test results from this visit will be discussed in further detail at your follow-up appointment, if applicable. Discharge Plan Admission Admit Date/Time: 12/19/20 11:55 Primary Reason for Your Visit: Right total knee arthroplasty Attending Provider: Wan Flores Primary Care Provider: Nic Kern Chi Discharge Orders/Prescriptions Prescriptions: New acetaminophen 500 mg Tablet 1,000 mg PO Q6H Qty: 100 RF: 0 oxycodone 5 mg Tablet 5 - 10 mg PO Q4H PRN PRN (Reason: Pain Score 4-10) 7 Days Qty: 60 RF: 0 Eliquis 2.5 mg Tablet 2.5 mg PO BID Qty: 30 RF: 0 Continued potassium chloride 10 mEq tablet,ER particles/crystals 10 meq PO DAILY RF: 0 pioglitazone 30 mg tablet 30 mg PO DAILY RF: 0 metformin 500 MG tablet 1,000 mg PO BIDCM RF: 0 famotidine 40 MG tablet 40 mg PO DAILY RF: 0 aspirin 81 MG tablet,delayed release (DR/EC) 81 mg PO DAILY RF: 0 ascorbic acid (vitamin C) 500 MG tablet 1,000 mg PO DAILY@0800 RF: 0 levothyroxine 50 MCG tablet 50 mcg PO DAILY RF: 0 losartan-hydrochlorothiazide 1 TAB tablet 1 tab PO DAILY RF: 0 atorvastatin 40 MG tablet 40 mg PO QHS RF: 0 xogvcpgxf-[id number]-algal oil 1 EACH capsule 1 each PO BID RF: 0 cyanocobalamin (vitamin B-12) 5,000 MCG capsule 5,000 mcg PO DAILY RF: 0 Discontinued turmeric 400 mg capsule 400 mg PO DAILY RF: 0 Referrals: Nic Kern Chi, MD [Primary Care Provider] -
[2020-12-20] MEDS: Losartan Potassium 50 MG Tablet PO (09:44)
[2020-12-20] MEDS: Famotidine 20 MG Tablet 40 MG PO (09:45)
[2020-12-20] MEDS: hydroCHLOROthiazide 12.5mg 12.5 MG PO (09:45)
[2020-12-20] MEDS: Senna/Docusate Sodium 1 Tablet 2 TABLET PO (09:45)
[2020-12-20] MEDS: Potassium Chloride Oral Tablet 10 MEQ PO (09:45)
[2020-12-20 09:50] VITALS: PULSE 92
--- NOTE | 2020-12-20 10:40 | CASEMGMT ---
JOCY ARMENDARIZ Face to Face with patient for initial transition planning/care coordination assessment. RN CM introduced self and role at [facility]. Patient sitting in chair, alert and oriented. Patient willing to participate in assessment and is able to answer all questions appropriately. Care providers, pharmacy, and demographics verified. Patient wishes to discharge home and is setup with [facility] for outpatient therapy. Patient states she has no further needs or concerns at this time. CM to follow for discharge planning needs that may arise. PCP: Erlin Specialists: william Flores Preferred Pharmacy: [facility] retail Insurance: [employer] Prescription Benefit: yes Living Will/HPOA: yes, daughter Adilene Meneses LNOK: daughter Living Arrangements: Patient lives alone in a split level home with bed and bath on main level of home. Patient has 5 steps and railing to enter the home. Transportation: daughter DME/HHC: Patient states she has shower chair, raised toilet, cane, walker, hip kit, grab bars, cpap at home. Patient is setup with [facility] for outpatient therapy starting . Disposition Plan: Patient to discharge home with outpatient therapy, family support, and follow-up plans in place. Josiane DRAPER, RN, CM
--- NOTE | 2020-12-20 11:38 | PHA.DC.MC ---
Pharmacy Service has performed discharge medication reconciliation and counseling for this patient. The patient was counseled on the following discharge medications and changes in medications for homegoing were reviewed. The Reason for Use, instructions for use, and potential side effects were reviewed for all new medications. 1. ELIQUIS 2. TYLENOL 3. OXYCODONE The patient's questions regarding all of their medications were answered. The patient was able to verbally demonstrate an understanding of their discharge medications. Home Medications ascorbic acid (vitamin C) 1,000 mg PO DAILY@0800 08/27/16 aspirin 81 mg PO DAILY 08/27/16 famotidine 40 mg PO DAILY 08/27/16 levothyroxine 50 mcg PO DAILY 08/27/16 losartan-hydrochlorothiazide 1 tab PO DAILY 08/27/16 metformin 1,000 mg PO BIDCM 08/27/16 atorvastatin 40 mg PO QHS 08/28/16 pioglitazone 30 mg tablet 30 mg PO DAILY 09/25/20 potassium chloride 10 mEq tablet,extended release(part/cryst) 10 meq PO DAILY 09/25/20 cyanocobalamin (vitamin B-12) 5,000 mcg PO DAILY 12/05/20 epipjlijv-B5-byV06-algal oil 1 each PO BID 12/05/20 acetaminophen 1,000 mg PO Q6H #100 tab 12/20/20 apixaban [Eliquis] 2.5 mg PO BID #30 tab 12/20/20 oxycodone 5 - 10 mg PO Q4H PRN PRN 7 Days #60 tab 12/20/20 The patient's discharge medication list was reviewed for discrepancies and discrepancies were resolved.
[2020-12-20 13:51] VITALS: BP 103/38; PULSE 70; RESP 18; TEMP 36.6; O2SAT 99
== END 2020-12-20 14:06 | disposition home or self-care (01) ==
LOC: SDC 12:56 → MS3 12:56
PROVIDERS: Anesthesiology; Admitting Provider Orthopaedic Surgery; PCP Family Medicine Geriatric Medicine; Referring Provider Orthopaedic Surgery; Visit Provider Orthopaedic Surgery
PROC: 0SRC0JZ Replacement of Right Knee Joint with Synthetic Substitute, Open Approach (ICD-10-PCS; CPT 27447; principal; 2020-12-19 07:45)
DX: M17.11 Unilateral primary osteoarthritis, right knee (principal); G89.29 Other chronic pain; K21.9 Gastro-esophageal reflux disease without esophagitis; E11.9 Type 2 diabetes mellitus without complications; I45.10 Unspecified right bundle-branch block; I10 Essential (primary) hypertension; Z87.891 Personal history of nicotine dependence; Z79.899 Other long term (current) drug therapy; Z79.82 Long term (current) use of aspirin; Z79.84 Long term (current) use of oral hypoglycemic drugs; Z87.440 Personal history of urinary (tract) infections; G47.30 Sleep apnea, unspecified; R06.00 Dyspnea, unspecified
CPT/HCPCS: 01402; 27447; 64447; S2900; 36415; 73560; 80048; 82962; 82985; 83036; 83735; 85025; 85027; 85610; 85730; 86850; 86900; 86901; 87081; 93005; 94762; 96361; 96365; 96366; 96375; 97110; 97116; 97162; 97166; 97530; 97535; 99218; 99251; C1776; J7120; A4216; G0378; G0379; G0463; J0702; J3490

== ENCOUNTER 2021-01-24 11:00 | Outpatient (RCR) | payer MEDICARE, SELFPAY ==
[2020-12-19 12:48] VITALS: BMI 37.8
--- NOTE | 2020-12-22 13:00 | HP.PTEVAL_ITS ---
Patient's Visit Information MARY BOSTON is a 70 year old F referred to Physical Therapy by Dr. Wan Flores DO with a diagnosis of RIGHT TKA. Date of Evaluation: 12/22/20 Physical Therapist: William Hanks, PT, Cert MDT, OCS - Visit Plan Frequency: 3x /Week Duration: 4 Weeks Plan: S/P TKA 12/19/20. PT INTERVENTIONS AARO/PROM/AROM KNEE ,STRENGTHENING EX'S QUADS/HAMS/HIP,GAIT AND BALANCE TRAINING,CP - Subjective This 70 y/o female presents to physical therapy with Right TKA on 12/19/[address] Guzman at [facility]. Patient has DJD ~ 12 years progressively worse. Patient d/c 12/20/20 to home. Daughter is staying with patient temporarily. Patient has some pain.Patient had no complication post surgery. Patient has exercises at home. Patient uses walker at home.Patient has bi level home with 5 steps with rail and cane. Patient has walk-in shower . Patient has difficulty with ADLS some assist with IDALS.Patient denies. Patient TKA impairs function and gait/mobility . MEDS: oxycotin,teylonal. SOCIAL: . VOCATION: retired - Pain Right Knee Pain Intensity (Out of 10): 2 Pain Intensity Range: 10 - Objective POSTURE: mild foward posture hips/knees flexed. SKIN: inscion well approximate dressing intact. GIRTH PATELLA: 46.5 cm. GIRTH 6 SUPRAPATELLAR : 57.6 CM. STAIRS: one step at time with rails. GAIT: ambulated with fww WBAT with slow mariza decrease stance time swing phase RLE. BALANCE: fair+ with fww. AROM: 3-60 supine knee flexion. MMT: quads 8.1,hams 13.1.hip flexion 10.1. SLR: unable. BED MOBLITY: SUPINE-SIT RLE MIN ASSIST. TU.8. WOMAC: 55 - Goals Goal 1:: I with HEP Goal Time Frame: 4-6 Weeks Goal 2:: Patient to ambulate with cane community distance with improve quality oaf gait Goal Time Frame: 4-6 Weeks Goal 3:: Patient to increase AROM knee flexion 0-100 degrees or> to improve function and stairs Goal Time Frame: 4-6 Weeks Goal 5:: Patient increase strength quads 50 and hams 60 io improve gait Goal Time Frame: 4-6 Weeks Goal 6:: Patient to improve WOMAC and LFES score by 10 points or > to improve function and ADLS' Goal Time Frame: 4-6 Weeks - Rehabilitation Potential Physical Therapy Diagnosis: This patient underwent s/p R TKA with pain ,decrease ROM ,strength,gait,balance and stairs thus will benifit from skilled PT. Rehabilitation Potential: Good - Anticipated Interventions Patient/Client Instruction: Educate patient on: Condition, Plan of Care For the Purpose of:: To decrease pain, To increase ROM, To improve muscle performance and motor function, To improve ability to perform ADL's, To increase tolerance to activity/condition/position, To improve performance and independence with ADL's, To improve ability of physical actions for home/community/work/leisure, To improve gait and locomotor functions, To improve health of tissue, To decrease soft tissue restriction, To increase flexibility/ROM, To improve endurance, To improve balance, To improve safety with gait, To assume or resume ADL's, To improve tolerance to ADL's Therapeutic Exercise to Include: Strength training, Endurance training, Balance training, Passive ROM, Active ROM For the Purpose of:: To decrease pain, To decrease swelling/inflammation, To increase ROM, To improve muscle performance and motor function, To improve ability to perform ADL's, To increase tolerance to activity/condition/position, To improve performance and independence with ADL's, To decrease level of supervision to perform tasks, To improve ability of physical actions for home/c ommunity/work/leisure, To improve gait and locomotor functions, To improve health of tissue, To decrease soft tissue restriction, To increase flexibility/ROM, To improve endurance, To improve balance, To improve safety with gait, To assume or resume ADL's, To improve tolerance to ADL's Cryotherapy (ice pack, ice massage): Yes Vasopneumatic device: Yes For the Purpose of:: To decrease pain, To decrease swelling/inflammation, To increase ROM, To improve health of tissue, To decrease soft tissue restriction, To increase flexibility/ROM Thank you for the opportunity to evaluate your patient. For Medicare and Medicare HMO plans, please review the plan of care and approve it. It will need to be FAXED BACK to us at [phone] for Medicare purposes. For Medicare only, by signing this I certify the plan of care. Please let me know if there are questions or concerns regarding this plan of care. Physician Signature: Date:
--- NOTE | 2021-01-24 11:58 | HP.PTDCSUM ---
It has been my pleasure to treat MARY BOSTON referred by Dr. Wan Flores DO, with the diagnosis of RIGHT TKA for a total of 13 visit(s). Discharge Date: 01/24/21 Please see the following information for a summary of their discharge status. Subjective: Patient is able to do everything at home. Plan to see DR Right Knee Pain Intensity (Out of 10): 2 % Improvement: 75 Objective/Function: POSTURE: MILD FORWARD. GAIT:RECIPROCAL PATTTERN MILD ANTALGIC GAIT. NEURO: INTACT. AROM: 0-110 supine knee flexion. MMT: QUADS/HAMS 4/5 Goal 1:: I with HEP Goal Progress: Goal Met Goal 2:: Patient to ambulate with cane community distance with improve quality oaf gait Goal Progress: Goal Met Goal 3:: Patient to increase AROM knee flexion 0-100 degrees or> to improve function and stairs Goal Progress: Goal Met Goal Progress: Goal Met Goal 5:: Patient increase strength quads 50 and hams 60 io improve gait Goal Progress: Goal Met Goal 6:: Patient to improve WOMAC and LFES score by 10 points or > to improve function and ADLS' Goal Progress: Goal Met Plan: D/C Discharge Comments: HEP If there are questions or concerns regarding this patient's physical therapy, please feel free to call me at [phone]. Thank you for the referral of this patient. Sincerely, William Hanks PT, Cert MDT, OCS
== END 2021-01-24 19:00 | disposition home or self-care (01) ==
LOC: PT 11:00
PROVIDERS: PCP Family Medicine Geriatric Medicine; Referring Provider Orthopaedic Surgery; Visit Provider Orthopaedic Surgery
DX: Z47.1 Aftercare following joint replacement surgery (principal); Z96.651 Presence of right artificial knee joint
CPT/HCPCS: 97110; 97162

== ENCOUNTER → 2021-02-07 07:48 | Outpatient (CLI) | payer MEDICARE, SELFPAY ==
[2020-12-19 12:48] VITALS: BMI 37.8
--- NOTE | 2021-02-07 07:51 | CT_ITS ---
STUDY: LEFT LOWER EXTREMITY CT SCAN REASON FOR EXAM: Female, [address] templating for left TKA RADIATION DOSAGE (If Supplied By Facility): CTDIvol = ( 18.87 ) mGy, DLP = ( 1270.16 ) mGycm. Individualized dose optimization techniques were used for this CT.? TECHNIQUE: Axial multidetector CT scan of the left lower extremity. Coronal and sagittal reformatted images. COMPARISON: None. FINDINGS: General: No acute fracture, dislocation or cortical destruction. Osteopenia. Hip: Moderate left hip osteoarthritis. Knee: Severe medial compartment arthrosis. Severe lateral compartment arthrosis. Moderate/severe patellofemoral arthrosis. Small joint effusion. Small popliteal cyst. Mild swelling. Ankle: Mild ankle osteoarthritis. Achilles enthesophyte. CT/Extremity Lower without Contra IMPRESSION: Severe right knee osteoarthritis Small knee joint effusion, small popliteal cyst and mild swelling Moderate hip osteoarthritis Mild ankle osteoarthritis Electronically Signed: Dann Bo DO at 11:28 EDT Tel , Service support ,
== END ==
PROVIDERS: PCP Family Medicine Geriatric Medicine; Referring Provider Orthopaedic Surgery; Visit Provider Orthopaedic Surgery
DX: M17.12 Unilateral primary osteoarthritis, left knee (principal)
CPT/HCPCS: 73700

== ENCOUNTER 2021-02-27 15:06 | Observation (INO) | payer MEDICARE, SELFPAY ==
[2020-12-19 12:48] VITALS: BMI 37.8
[2021-02-20 11:01] LABS: Absolute Lymphocyte Count 1.69 X10^3/uL (0.83-4.51); Absolute Neutrophil Count 5.5 X10^3/uL (2.0-7.7); Basophil# 0.04 X10^3/uL; Basophil% 0.5 % (0-1); Eosinophil# 0.26 X10^3/uL; Eosinophils% 3.2 % (0-5); Hematocrit 36.7 % (37-47); Hemoglobin 11.2 g/dL (12.0-15.0); Lymphocyte # 1.69 X10^3/ul (0.83-4.51); Lymphocyte % 20.6 % (19-41); Mean Corp Hgb Conc 30.5 g/dL (32-36); Mean Corpuscular Hgb 26.7 pg (27.0-32.0); Mean Corpuscular Volume 87.4 fL (81-99); Mean Platelet Vol. 10.7 fl (6.2-12.0); Monocyte# 0.69 X10^3/uL; Monocyte% 8.4 % (0-10); NRBC Flagged by Analyzer 0 % (0-5); Neutrophil # 5.47 X10^3/uL (2.7-7.7); Neutrophil % 66.8 % (47-70); Platelet Count 310 K/mm3 (150-450); RBC Distribution Width CV 13.2 % (11.6-14.6); White Blood Count 8.2 K/mm3 (4.4-11.0)
[2021-02-20 11:08] LABS: Prothrombin Time (Protime)PT. 12.9 SECONDS (11.7-14.9)
[2021-02-20 11:09] LABS: Partial Thromboplast Time 27.2 Seconds (24.1-36.2)
[2021-02-20 11:24] LABS: Anion Gap 7 (5-15); BUN 14 mg/dL (7-18); BUN/Creat Ratio 19.7 RATIO (10-20); Calcium,Total 9.4 mg/dL (8.5-10.1); Chloride 107 mmol/L (98-107); Creatinine, Serum 0.71 mg/dL (0.55-1.02); EST Glomerular Filtration Rate 86 mL/min (>60); Est Glom Filt Rate - Afr Amer 104 mL/min (>60); Glucose 137 mg/dL (74-106); Potassium 3.8 mmol/L (3.5-5.1); Sodium Level 139 mmol/L (136-145)
[2021-02-20 11:39] LABS: Thyroid Stim Hormone (TSH) 1.28 uIU/mL (0.358-3.74)
[2021-02-21 07:26] LABS: Fructosamine 236 umol/L (0-285)
[2021-02-27] VITALS (16 sets, daily range): BP systolic 100–146; BP diastolic 57–113; PULSE 74–91; RESP 16–20; TEMP 36.4–36.8; O2SAT 76–100; BMI 37.0
[2021-02-27 06:21] LABS: Bedside Glucose 140 mg/dL (70-110)
[2021-02-27] MEDS: Gabapentin 600 MG Tablet PO (06:31)
[2021-02-27] MEDS: Lactated Ringers 1,000 ML 999 ML IV (06:31)
[2021-02-27] MEDS: Celecoxib 200 MG Capsule 400 MG PO (06:31)
[2021-02-27] MEDS: Scopolamine 1mg/72hr Patch 1 PATCH TD (06:31)
[2021-02-27] MEDS: Acetaminophen 500 MG Tablet 1000 MG PO ×3 (06:32→21:35)
--- NOTE | 2021-02-27 07:13 | PCM.HP.BLA ---
History and Physical Date of Admission: 02/27/21 Date of Service: 02/15/21 MR#:[id number]:[id number]: MARY BOSTON [facility] #:[id number] Provider:Dr. Wan Flores, Age/Sex: 70/F [facility] [place] Intake Intake Visit Reasons: left knee Chief Complaint: rtk Accompanied by: self Allergies No Known Allergies Allergy (Verified 02/15/21 10:27) Medications ascorbic acid (vitamin C) 1,000 mg PO DAILY@0800 08/27/16 [History Confirmed 02/15/21] aspirin 81 mg PO DAILY 08/27/16 [History Confirmed 02/15/21] famotidine 40 mg PO DAILY 08/27/16 [History Confirmed 02/15/21] levothyroxine 50 mcg PO DAILY 08/27/16 [History Confirmed 02/15/21] losartan-hydrochlorothiazide 1 tab PO DAILY 08/27/16 [History Confirmed 02/15/21] metformin 1,000 mg PO BIDCM 08/27/16 [History Confirmed 02/15/21] atorvastatin 40 mg PO QHS 08/28/16 [History Confirmed 02/15/21] pioglitazone 30 mg tablet 30 mg PO DAILY 09/25/20 [History Confirmed 02/15/21] potassium chloride 10 mEq tablet,extended release(part/cryst) 10 meq PO DAILY 09/25/20 [History Confirmed 02/15/21] cyanocobalamin (vitamin B-12) 5,000 mcg PO DAILY 12/05/20 [History Confirmed 02/15/21] [id number]-[id number]-algal oil 1 each PO BID 12/05/20 [History Confirmed 02/15/21] acetaminophen [Tylenol] 650 mg PO Q6H PRN 02/13/21 [History Confirmed 02/15/21] PFSH Medical History Alcohol use Arthritis Back pain Cardiology follow-up encounter CPAP (continuous positive airway pressure) dependence Diabetes Dietary restriction Former smoker Gastric reflux History of edema History of stress test Hx of echocardiogram Hypertension Shortness of breath on exertion Thyroid disease Wears dentures Wears glasses Wears partial dentures Surgical History History of arthroplasty of right knee History of cardiac catheterization History of lumpectomy of right breast Hx of left cataract extraction Hx of right cataract extraction Hx of tonsillectomy Hx of tubal ligation S/P thyroid biopsy Social History Smoking Status: Former smoker HPI left knee Details: Parts of this documentation were recorded by a scribe, this documentation accurately reflects the service provided and the decisions made by me, Dr. Wan Flores DO 02/15/21 3119. MARY BOSTON is a 70 year old F here today for Iovera procedure in the left knee. She states no questions or concerns at this time. Office Procedures Iovera Procedure Details:: Preoperative diagnosis : Postoperative diagnosis: Same Procedure: Cryotherapy with Iovera device to anterior femoral cutaneous nerve and 2 branches of the infrapatellar saphenous nerve III nerves in total Description of procedure: Patient was brought back to the procedure room the operative extremity was identified by both patient and physician. The PIP flexion crease was measured to the midpoint of the patella and this distance was divided in 3 resulting in 10 cm location proximal to the midpoint of the patella. This line was extended medial and lateral to the extent of the edges of the patella. This was our treatment line for the anterior femoral cutaneous nerve. A second treatment line was made 5 cm medial to the inferior pole of the patella and 5 cm distally. The leg was prepped with alcohol and Betadine. Lidocaine with epi was used along the treatment lines. Using the Iovera device treatment lines were treated with 1 minute cycles. Reproduction of paresthesias was monitored in the area of nerve distribution. Once all 3 nerves were treated across the 2 treatment lines patient was cleaned and a light dressing with 4 x 4 and Valerio wrap was applied. Patient tolerated the procedure without complication. 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 Wan Flores, DO: Iovera procedure performed today without complication patient tolerated well and better than her other side in the past. She is scheduled for total knee replacement and all of her questions were answered today follow-up 2 weeks postoperatively. Plan Details Other Orders: Orders: Debbie Today M25.569 02/15/21 1116<Electronically signed by Wan Flores DO>Date Wan Flores DO I have re-examined the patient. There are no clinical changes since date of exam
--- NOTE | 2021-02-27 07:30 | KNEE_PTH ---
PATIENT: MARY BOSTON LOC: MS3 U#:[id number] AGE/SX: 70/F ROOM: [facility] [place] RE02/27/[address]: Dr. Wan Flores DO : 1950 BED: 1 DIS: 02/28/2021 SPEC #: [id number] RECD: 02/27/21 11:40 STATUS: SYDNEY RESaima #: [id number] ADAMARIS: 02/27/21 07:[address]: Wan Flores DEPT: SURGICAL PATHOLOGY RECD BY: Aylin Bernardo ENTERED: 02/27/21 11:52 SP TYPE: TOTAL KNEE OTHR DR: Dr. Nic Kern MD Tissues: Knee, NOS Procedures: Decalcification bone/plaque Surgery Specimen Level IV HEADER OPERATION: ERAS, total knee replacement robotic arm assist PRE-OP DIAGNOSIS: Left knee pain TISSUE SUBMITTED: Left knee bone MICROSCOPIC DIAGNOSIS Bone and soft tissue, left knee, total knee replacement/resection: Pieces of bone with degenerative osteoarthritic changes. Fragments of fibrocartilaginous tissue, fibroconnective tissue, fibroadipose tissue and reactive synovial tissue. INGRID:charity 03/05/2021 MICROSCOPIC DESCRIPTION Slides are reviewed. GROSS DESCRIPTION Received is one container designated bone and soft tissue left knee. The specimen consists of multiple fragments of major-yellow bone measuring in aggregate 14 x 10 x 1.5 cm. Also in the specimen container are multiple fragments of yellow-white soft tissue measuring in aggregate 2 x 2 x 0.6 cm. A number of bony fragments contain articular surfaces consistent with tibial plateau and femoral condyle and displaying prominent osteophyte formation, eburnation, and bone erosion. Special Officer Automat sections are submitted in two cassettes as follows: 1 - soft tissue, 2 - bone after decalcification. / AM:charity 02/27/21 TC:5 CPT: 24904, 47003
[2021-02-27] MEDS: Cefazolin 2 GM in 0.9% Normal Saline 100 ML IV (07:55)
[2021-02-27] MEDS: dexAMETHasone 10 MG/ML Vial IV (08:10)
[2021-02-27] MEDS: Lactated Ringers 1,000 ML 125 ML IV ×3 (09:15→15:21)
[2021-02-27] MEDS: Epinephrine (1 mg/ml) 1 MG/ML VIAL (09:20)
[2021-02-27] MEDS: 0.9% Normal Saline (Pres. free 10 ML Vial (09:20)
[2021-02-27] MEDS: Bupivacaine 0.5% PF 10 ML VIAL (09:20)
--- NOTE | 2021-02-27 09:57 | RAD_ITS ---
STUDY: X-RAY - LEFT KNEE REASON FOR EXAM: Female, 70 years old. Post op -- AP and Lateral xray of operative knee in PACU TECHNIQUE: 2 view(s) of the knee. COMPARISON: Comparison is made with prior study dated 09/12/2020. FINDINGS: Normal visualized distal femur. Normal visualized proximal tibia and fibula. Normal proximal tibiofibular articulation. The patient is status post left total knee replacement. There is good alignment. Postoperative soft tissue changes. RAD/Knee 1 or 2 Views IMPRESSION: Status post total knee replacement. There is good alignment. Postoperative soft tissue changes. Electronically Signed: Alden Berg MD at 11:05 EDT , Service support ,
--- NOTE | 2021-02-27 10:03 | PCM.OPRPT ---
Report of Operation Date of Procedure: 02/27/21 Description of Surgical Findings:: Preoperative diagnosis: Left knee DJD Postoperative diagnosis: Same Procedure: Left total knee arthroplasty CT guided Robotic Assisted Implant: Bernadette triathlon cemented femoral component size3, tibial baseplate size 4, asymmetric patella size 32, polyethylene X3 size 12 CS Anesthesia: Spinal with adductor canal block Tourniquet time: 12 minutes at 300 mmHg Complications: None Condition: Stable to PACU Estimated blood loss: 150 cc Indication for procedure: This is a 70 yo with long standing degenerative joint disease of the knee who has failed conservative treatment and wished to proceed with elective total knee arthroplasty. Risk benefits and alternatives were reviewed including; risk of bleeding, infection, nerve artery and tissue damage, continued pain, postoperative stiffness, venous thromboembolism, need for postoperative rehabilitation, mechanical feel to the knee, and expected postoperative course. The operative CT and templating was performed with component sizing Procedure: The patient was met in the preoperative holding area. The operative extremity was identified by both patient and physician and was marked. Patient was met by anesthesia. An adductor canal block was placed by anesthesia postoperatively the patient was brought back to the operating room on a wheeled cart and transferred to the operating table in the supine position. Anesthesia was started. A well-padded tourniquet was placed on the operative extremity. The patient was prepped and draped in the usual sterile fashion. A timeout was called to ensure the proper patient procedure and extremity were being contemplated. An Esmarch was used to exsanguinate the extremity. The tourniquet was inflated. A 10 blade scalpel was used to make a midline incision down through the skin and subcutaneous tissue. Skin retractors placed. Bovie was used to perform meticulous hemostasis. full-thickness flaps were elevated medial and lateral along the joint capsule. A deep blade scalpel was used to perform a medial parapatellar arthrotomy. The knee was brought to full extension. A Bovie was used to release the soft tissues off the most proximal aspect of the medial tibial plateau, a three-quarter inch curved osteotome was also used for this process. The infrapatellar fat pad was excised. The superior fat pad was excised partially anteriorolateraly and portion the anterioromedial pad was elevated from the femur. At this point our intra-articular femoral array was placed of a 45 degree angle proximal and posterior to the medial epicondyle. Our tibial array was placed greater than 1 hands breath below the incision at a 20 degree angle stab incisions were used for this case were attached and checked with the robotic software. Tourniquet was let down. At this point registration cuenca were taken throughout the knee as well as checkpoints placed in the femur and tibia once the knee was registered then tensioned the medial and lateral ligaments in extension and 90 degrees of flexion. We then used these numbers to adjust our components within parameters to balance the knee in both flexion and extension once this was done on our monitor we then proceeded with using the robotic arm to make our tibial plateau cut and anterior posterior and chamfer cuts and distal on the femur we then trialed and achieved the desired plan with a well-balanced knee. Lug holes were drilled in the femur the tibia preparation was completed with a fin punch and the patella was prepared by first using a caliper to ensure sufficient bone stock and a patellar reamer to remove the desired amount of bone locals were drilled for an asymmetric poly-. We then brought the knee through range of motion with excellent patellar tracking. We thoroughly irrigated the knee with a trial components were removed a posterior capsular injection with her standard cocktail was performed the aqua Mantis was also used to aid in hemostasis. Betadine rinse was allowed to sit and washed out components were cemented. Aricept rinse was then used followed by several more rate liters of irrigation after it was allowed to sit. Joint capsule was closed with #1 Ethibond [id number]-[id number]'s followed by Vicryl in the subcutaneous tissues staple in the skin arrays and checkpoints were removed prior to closure all counts were correct stab incisions were closed with a stable standard dressing in the form of Mepilex for the main incision Xeroform 4 x 4 and Tegaderm over pin site holes. Thigh-high HARISH hose applied over top of dressing. Patient tolerated the procedure well and was directed to PACU in stable condition no intraoperative complications traffic court magistrate: Greg Richey
[2021-02-27 11:25] LABS: Bedside Glucose 187 mg/dL (70-110)
[2021-02-27] MEDS: Insulin Lispro 100 UNIT/ML INSULN.PEN SC (11:46)
[2021-02-27] MEDS: Cefazolin 1 GM/50 ML BAG IV ×2 (11:47→18:26)
[2021-02-27 16:46] LABS: Bedside Glucose 158 mg/dL (70-110)
[2021-02-27] MEDS: metFORMIN HCl 1,000 MG Tablet 1000 MG PO (16:57)
[2021-02-27] MEDS: Atorvastatin Calcium 40 MG Tablet PO (21:35)
[2021-02-27] MEDS: Senna/Docusate Sodium 1 Tablet 2 TABLET PO (21:36)
[2021-02-27] MEDS: oxyCODONE 5 MG Tablet PO (21:39)
[2021-02-28] MEDS: Lactated Ringers 1,000 ML 125 ML IV (00:33)
[2021-02-28 01:07] VITALS: BP 110/54; PULSE 77; RESP 18; TEMP 36.6; O2SAT 96
[2021-02-28] MEDS: Cefazolin 1 GM/50 ML BAG IV (02:50)
[2021-02-28 05:46] VITALS: BP 108/48; PULSE 69; RESP 18; TEMP 36.4; O2SAT 95
[2021-02-28] MEDS: Acetaminophen 500 MG Tablet 1000 MG PO ×2 (05:48→13:59)
[2021-02-28] MEDS: Levothyroxine 50 MCG Tablet PO (05:49)
[2021-02-28] MEDS: APIXABAN 2.5 MG TABLET PO (05:49)
[2021-02-28 06:07] LABS: Hematocrit 30.9 % (37-47); Hemoglobin 9.4 g/dL (12.0-15.0); Mean Corp Hgb Conc 30.4 g/dL (32-36); Mean Corpuscular Hgb 26.7 pg (27.0-32.0); Mean Corpuscular Volume 87.8 fL (81-99); Mean Platelet Vol. 9.8 fl (6.2-12.0); Platelet Count 300 K/mm3 (150-450); RBC Distribution Width CV 13.4 % (11.6-14.6); RBC Distribution Width SD 42.9 fl (35.1-43.9); Red Blood Count 3.52 M/mm3 (4.2-5.4); White Blood Count 15.9 K/mm3 (4.4-11.0)
[2021-02-28 06:46] LABS: Anion Gap 3 (5-15); BUN 14 mg/dL (7-18); Calcium,Total 8.9 mg/dL (8.5-10.1); Chloride 107 mmol/L (98-107); Creatinine, Serum 0.67 mg/dL (0.55-1.02); EST Glomerular Filtration Rate 93 mL/min (>60); Est Glom Filt Rate - Afr Amer 112 mL/min (>60); Glucose 116 mg/dL (74-106); Potassium 3.9 mmol/L (3.5-5.1); Sodium Level 139 mmol/L (136-145)
[2021-02-28] MEDS: oxyCODONE 5 MG Tablet PO ×2 (06:46→12:34)
--- NOTE | 2021-02-28 08:12 | PCM.DC ---
Discharge Instructions Dressing / Incision Call your doctor if you observe: Shortness of breath and Chest pain Additional Dressing/Incision Instructions:: Ice and elevate one week while not ambulating. Ambulation is encouraged. Weightbearing as tolerated. Use assistive devise for stability. Encourage FULL knee extension and flexion 1 time EVERY time you get up and down and MULTIPLE times per day. No showering 72 hours after surgery. Begin showering postop day #3. Remove the dressing prior to shower and gently wash with warm water and antibacterial soap then pat dry and place abdominal pad (or plain gauze) and HARISH hose over top. This is to be done daily. Do not submerge for 3 weeks. If not showering daily after the initial 72 hours then you must clean incision and change dressing daily. Do not allow animals near the incision area. Keep clean. Follow anticoagulation recommendations as prescribed. Do not take any NSAIDs while on blood thinner. Do not take any additional narcotic pain medication other than what was prescribed on your surgery day without discussing with physician. Narcotic medication can be addictive. Do not drink alcohol while taking narcotics. Start physical therapy. If you are not currently scheduled for physical therapy or you are unsure of appointment time please call office [facility] to arrange. Call Dr. Flores with any concerns. Follow Up Care Please Follow Up With: Wan Flores DO When: 2weeks Test Results: Test results from this visit will be discussed in further detail at your follow-up appointment, if applicable. Discharge Plan Admission Admit Date/Time: 02/27/21 15:06 Attending Provider: Wan Flores Primary Care Provider: Nic Kern Chi Discharge Orders/Prescriptions Prescriptions: New acetaminophen 500 mg Tablet 1,000 mg PO Q6H Qty: 100 RF: 0 oxycodone 5 mg Tablet 5 - 10 mg PO Q4H PRN PRN (Reason: Pain Score 4-10) 7 Days Qty: 60 RF: 0 Eliquis 2.5 mg Tablet 2.5 mg PO BID Qty: 30 RF: 0 Continued potassium chloride 10 mEq tablet,ER particles/crystals 10 meq PO DAILY RF: 0 pioglitazone 30 mg tablet 30 mg PO DAILY RF: 0 metformin 500 MG tablet 1,000 mg PO BIDCM RF: 0 famotidine 40 MG tablet 40 mg PO DAILY RF: 0 aspirin 81 MG tablet,delayed release (DR/EC) 81 mg PO DAILY RF: 0 ascorbic acid (vitamin C) 500 MG tablet 1,000 mg PO DAILY@0800 RF: 0 levothyroxine 50 MCG tablet 50 mcg PO DAILY RF: 0 losartan-hydrochlorothiazide 1 TAB tablet 1 tab PO DAILY RF: 0 atorvastatin 40 MG tablet 40 mg PO QHS RF: 0 [id number]-[id number]-algal oil 1 EACH capsule 1 each PO BID RF: 0 cyanocobalamin (vitamin B-12) 5,000 MCG capsule 5,000 mcg PO DAILY RF: 0 Discontinued acetaminophen [Tylenol] 325 mg Tablet 650 mg PO Q6H PRN (Reason: prn) RF: 0 Referrals / Follow Up: Nic Kern Chi, MD [Primary Care Provider] -
[2021-02-28 08:33] VITALS: BP 119/43; PULSE 68; RESP 18; TEMP 36.6; O2SAT 93
[2021-02-28] MEDS: Famotidine 20 MG Tablet 40 MG PO (08:41)
[2021-02-28] MEDS: hydroCHLOROthiazide 12.5mg 12.5 MG PO (08:42)
[2021-02-28] MEDS: Ascorbic Acid 500 MG Tablet 1000 MG PO (08:42)
[2021-02-28] MEDS: metFORMIN HCl 1,000 MG Tablet 1000 MG PO (08:42)
[2021-02-28] MEDS: Senna/Docusate Sodium 1 Tablet 2 TABLET PO (08:42)
[2021-02-28] MEDS: Losartan Potassium 50 MG Tablet PO (08:42)
[2021-02-28] MEDS: Pioglitazone Hydrochloride 30 MG Tablet PO (08:42)
[2021-02-28] MEDS: Potassium Chloride Oral Tablet 10 MEQ PO (08:46)
--- NOTE | 2021-02-28 09:26 | PCM.PN.ORT ---
Subjective Subjective She was seated and resting comfortably upon entering the room. States that she had PT yesterday who walked her down the halls and she was able to tolerate this. However, she states that she is in more pain with this knee replacement than her previous knee replacement. She is currently taking Tylenol and oxycodone for pain. Denies chest pains, shortness of breath, nausea, vomiting, and lightheadedness. Has no other questions or concerns at this time. Objective Data Objective Data Vital Signs: Vital Signs Temp Pulse Resp BP Pulse Ox 97.9 F 68 18 119/43 L 93 02/28/21 08:33 02/28/21 08:33 02/28/21 08:33 02/28/21 08:33 02/28/21 08:33 Oxygen Flow Rate (L/min) 3 Oxygen Delivery Method Room Air Weight: 229 lb 8.019 oz Body Mass Index (BMI) 37.0 Intake & Output: Intake and Output for Last 24 Hours 02/26/21 02/27/21 02/28/21 23:59 23:59 23:59 Intake Total 4836.5 / 5256.5 1315.83 / 1315.83 Output Total 1350 / 1350 Balance 4836.5 / 4656.5 -34.17 / -34.17 Lab / Micro Data Result Diagrams: 02/28/21 05:34 02/28/21 05:34 Labs: Laboratory Results - last 24 hr 02/27/21 11:13: POC Glucose 187 H 02/27/21 16:43: POC Glucose 158 H 02/28/21 05:34: WBC 15.9 H, RBC 3.52 L, Hgb 9.4 L, Hct 30.9 L, MCV 87.8, MCH 26.7 L, MCHC 30.4 L, RDW Std Deviation 42.9, RDW Coeff of Nette 13.4, Plt Count 300, MPV 9.8 02/28/21 05:34: Sodium 139, Potassium 3.9, Chloride 107, Carbon Dioxide 29.0, Anion Gap 3 L, BUN 14, Creatinine 0.67, Estim Creat Clear Calc 49.00, Est GFR (MDRD) Af Amer 112, Est GFR (MDRD) Non-Af 93, BUN/Creatinine Ratio 21.0 H, Glucose 116 H, Calcium 8.9 Micro: Microbiology 02/20/21 09:52 Swab (Method) Nasal Screen MRSA/MSSA - Final Radiography Diagnostic Testing: Radiology Impression Knee X-Ray 02/27/21 09:57 IMPRESSION: Status post total knee replacement. There is good alignment. Postoperative soft tissue changes. Electronically Signed: Alden Berg MD at 11:05 EDT , Service support , Physical Exam Const alert, oriented x3 and no apparent distress General Appearance: cooperative Extremity normal to inspection Extremity Narrative: Dressing clean dry and intact. Compartments soft. Neurovascular intact. Able to plantarflex and dorsiflex foot. Palpable pedal pulses. Assessment & Plan Assessment/Plan (1) Status post left knee replacement: PLAN: Postop day #1 left total knee arthroplasty Discharge home after PT today, if able to complete stairs and feels comfortable with discharge Continue with PT, weightbearing as tolerated - encouraged full knee extension and flexion multiple times a day. Continue to take Eliquis 2.5 mg twice daily for 2 weeks - Do not take any NSAIDs while on blood thinner. Continue to wear bilateral thigh high HARISH hose Ice and elevate Dressings to be left on for 72 hours post op. Begin showering postop day #3. Remove the dressing prior to shower and gently wash with warm water and antibacterial soap then pat dry and place ABD pad/plain gauze and HARISH hose over top. Do not submerge for 3 weeks Follow-up in office 2 weeks for wound check and staple removal Call the office with any questions or concerns (2) Presence of unspecified artificial knee joint:
--- NOTE | 2021-02-28 10:15 | CASEMGMT ---
RN CM MANAGER PRODUCT DESIGN CM to room to meet with patient for initial transition planning/care coordination assessment. RN MARCELLO introduced self and role at [facility].? Pt voices understanding and consents to assessment at this time.? Pt sitting up in recliner chair in room in no distress at this time.? Pt is A/O at this time and answers all questions appropriately.?? Care providers, pharmacy, and demographics verified/updated at this time. PCP: Dr Kern Specialists: Dr Flores--ortho Preferred Pharmacy: [facility] Retail Insurance: ProPlan Prescription Benefit:? Yes Living Will/HPOA:? Has both LW and HPOA, who is her daughter, Adilene NIETOOK: Dtr, Adilene Living Arrangements: Lives alone in split-level home. 5 Steps to enter and 5 steps b/w levels. States PT has worked w/her with stairs and pt feels like she can navigate them once returns home. Pt was independent prior to surgery. She states she just had rt knee surgery done, knows what to expect, and has everything set up that she will need. Transportation: Pt states drives self and states no transportation concerns at this time.? Adilene will take pt home @ d/c. Pt will use [facility] Van transportation [facility] [employer] DME: ?States has the following DME:? shower chair, RTS, cane, walker, CPAP, glucometer ?Pt states no need for further DME at this time.? HHC/SNF: No hx of either. Pt wishes to return home and states has no concerns with going home at time of discharge.? She plans to go to [facility] for OP therapy and 1st appt is scheduled for tomorrow 03/01. Pt will utilize [facility] Van transportation to therapy appts. CM to follow for home oxygen needs and any further discharge planning/needs.? Pt voices no further concerns/needs at this time.? Advised pt to ask for CM if any further questions/concerns/needs arise.? Voices understanding. PLAN: ?Home w/OP therapy @ [facility]. Marcy DRAPER RN, CM
[2021-02-28 14:00] VITALS: BP 116/50; PULSE 75; RESP 16; TEMP 36.9; O2SAT 94
--- NOTE | 2021-02-28 15:14 | PHA.DC.MR ---
Pharmacy Service has performed discharge medication reconciliation for this patient. The patient's discharge medication list was reviewed for discrepancies and discrepancies were resolved. Prepared medication education but patient was discharged before I went to the room. Home Medications ascorbic acid (vitamin C) 1,000 mg PO DAILY@0800 08/27/16 aspirin 81 mg PO DAILY 08/27/16 famotidine 40 mg PO DAILY 08/27/16 levothyroxine 50 mcg PO DAILY 08/27/16 losartan-hydrochlorothiazide 1 tab PO DAILY 08/27/16 metformin 1,000 mg PO BIDCM 08/27/16 atorvastatin 40 mg PO QHS 08/28/16 pioglitazone 30 mg tablet 30 mg PO DAILY 09/25/20 potassium chloride 10 mEq tablet,extended release(part/cryst) 10 meq PO DAILY 09/25/20 cyanocobalamin (vitamin B-12) 5,000 mcg PO DAILY 12/05/20 [id number]-[id number] oil 1 each PO BID 12/05/20 acetaminophen 1,000 mg PO Q6H #100 tab 02/28/21 apixaban [Eliquis] 2.5 mg PO BID #30 tab 02/28/21 oxycodone 5 - 10 mg PO Q4H PRN PRN 7 Days #60 tab 02/28/21
== END 2021-02-28 14:37 | disposition home or self-care (01) ==
LOC: SDC 15:13 → MS3 15:13
PROVIDERS: Anesthesiology; Admitting Provider Orthopaedic Surgery; PCP Family Medicine Geriatric Medicine; Referring Provider Orthopaedic Surgery; Visit Provider Orthopaedic Surgery
PROC: 0SRD0JZ Replacement of Left Knee Joint with Synthetic Substitute, Open Approach (ICD-10-PCS; CPT 27447; principal; 2021-02-27 07:00)
DX: M17.12 Unilateral primary osteoarthritis, left knee (principal); E11.9 Type 2 diabetes mellitus without complications; I10 Essential (primary) hypertension; K21.9 Gastro-esophageal reflux disease without esophagitis; Z87.891 Personal history of nicotine dependence; Z79.82 Long term (current) use of aspirin; Z79.84 Long term (current) use of oral hypoglycemic drugs; Z79.899 Other long term (current) drug therapy; E07.9 Disorder of thyroid, unspecified; R06.02 Shortness of breath
CPT/HCPCS: 01402; 27447; 64447; S2900; 36415; 73560; 80048; 82962; 82985; 84443; 85025; 85027; 85610; 85730; 86850; 86900; 86901; 87081; 88305; 88311; 94762; 96361; 96365; 96366; 97110; 97116; 97162; 97166; 97530; 97535; 99218; 99251; C1776; J7120; G0378; G0379; G0463; J0702; J2405; J3490

== ENCOUNTER → 2021-04-05 08:57 | Outpatient (CLI) | payer MEDICARE, SELFPAY ==
[2021-04-05 12:27] LABS: Absolute Lymphocyte Count 1.74 X10^3/uL (0.83-4.51); Absolute Neutrophil Count 6.3 X10^3/uL (2.0-7.7); Basophil# 0.04 X10^3/uL; Basophil% 0.4 % (0-1); Eosinophil# 0.23 X10^3/uL; Eosinophils% 2.5 % (0-5); Hematocrit 32.7 % (37-47); Hemoglobin 9.6 g/dL (12.0-15.0); Lymphocyte # 1.74 X10^3/ul (0.83-4.51); Lymphocyte % 19.3 % (19-41); Mean Corp Hgb Conc 29.4 g/dL (32-36); Mean Corpuscular Hgb 25.7 pg (27.0-32.0); Mean Corpuscular Volume 87.4 fL (81-99); Mean Platelet Vol. 10.2 fl (6.2-12.0); Monocyte# 0.72 X10^3/uL; NRBC Flagged by Analyzer 0 % (0-5); Neutrophil # 6.25 X10^3/uL (2.7-7.7); Neutrophil % 69.4 % (47-70); Platelet Count 398 K/mm3 (150-450); RBC Distribution Width CV 14.4 % (11.6-14.6); RBC Distribution Width SD 45.9 fl (35.1-43.9); Red Blood Count 3.74 M/mm3 (4.2-5.4)
[2021-04-05 12:56] LABS: AST(SGOT) 26 U/L (15-37); Alanine Aminotransfer ALT/SGPT 35 U/L (13-56); Albumin, Serum 3.6 g/dL (3.2-5.0); Alkaline Phosphatase 97 U/L (45-117); Anion Gap 6 (5-15); BUN 14 mg/dL (7-18); Chloride 106 mmol/L (98-107); Cholesterol 100 mg/dL (200); EST Glomerular Filtration Rate 88 mL/min (>60); Est Glom Filt Rate - Afr Amer 106 mL/min (>60); Globulin 3.7 g/dL (2.2-4.2); Glucose 99 mg/dL (74-106); High Density Lipoprotein 56 mg/dL; Potassium 4.1 mmol/L (3.5-5.1); Protein, Total 7.3 g/dL (6.4-8.2); Sodium Level 138 mmol/L (136-145); Thyroid Stim Hormone (TSH) 1.67 uIU/mL (0.358-3.74); Triglycerides 128 mg/dL; Very Low Density Lipoprotein 26 mg/dL (5-40)
== END ==
PROVIDERS: PCP Family Medicine Geriatric Medicine; Visit Provider Family Medicine Geriatric Medicine
DX: E11.9 Type 2 diabetes mellitus without complications (principal); I10 Essential (primary) hypertension; E78.5 Hyperlipidemia, unspecified; E55.9 Vitamin D deficiency, unspecified
CPT/HCPCS: 36415; 80053; 80061; 82306; 84443; 85025

== ENCOUNTER 2021-04-09 10:30 | Outpatient (RCR) | payer MEDICARE, SELFPAY ==
[2020-12-19 12:48] VITALS: BMI 37.8
[2021-02-27 13:57] VITALS: BMI 37.0
--- NOTE | 2021-03-01 13:31 | HP.PTEVAL ---
Patient's Visit Information MARY BOSTON is a 70 year old F referred to Physical Therapy by Dr. Wan Flores DO with a diagnosis of LEFT TKA. Date of Evaluation: 03/01/21 Physical Therapist: William Hanks, PT, Cert MDT, OCS - Visit Plan Frequency: 2x /Week Duration: 6 Weeks Plan: S/P TKR LEFT 02/27/21. PT INTERVETIONS AAROM/PRPOM AROM KNEE ,STRENGTHENING QUADS/HAMS/HIP ,GAIT ,BALANCE TRAINING ,NUSTEP AND CP - Subjective This 70 y/o female presents to physical therapy with left TKR on 02/27/[address] Camarillo. Patient stated spinal didn't work so patient states more pain. Patient d/c 02/28/21 to home with fww. Patient daughter currently sating with patient. Patient lives in split level with 5 steps with rail. Patient denies paresthesia/tingling .Patient did have right THR on Dec 19 2020. Patient has had knee pain for 20 rears which has progressively worse 10 years. Currently, patient difficulty with transfers ,sleeping in recliner and difficulty with walking . Patient has difficulty with ADLS' and dressing and daughter does cooking . Patient has not bath yet. Patient has dressing intact mild bloody with compression stocking for edema. Patient TKR affects QOL and function /gait. MEDS : OXYCODIN. SOCIAL: . VOCATION: RETIRED - Pain Left Knee Pain Intensity (Out of 10): 9 Pain Intensity Range: 10 - Objective POSTURE: mild forward posture knee flexed. INSCION: bandage intact mild bloody drainage. EDEMA: joint line 42.5 cm,6 above joint line 61.5 cm. GAIT: mild forward posture decrease stance time left side with antalgic gait slow mariza with fww. BALANCE: fair with fww. MMT (PEAK FORCE): QUADS 6.6,HAMSTRINS 9.5,HIP FLEXION O,ANKLE 4/5. AAROM: 10-60 degrees supine knee. -(ALICE) - Goals Goal 1:: Patient to be I with HEP Goal Time Frame: 6-8 Weeks Goal 2:: Patient to normalize gait community distances. Goal Time Frame: 6-8 Weeks Goal 3:: Patient to improve dynamic balance to good Goal Time Frame: 6-8 Weeks Goal 4:: Patient to improve AROM supine knee flexion 5 -110 degrees or > to improve function and gait Goal Time Frame: 6-8 Weeks Goal 5:: Patient to improve MMT- peak force quads 50 ,hams 60,hip flexion 50 or > to improve function. Goal Time Frame: 6-8 Weeks Goal 6:: Patient to improve LFES score by 15 points or > to improve function Goal Time Frame: 6-8 Weeks - Rehabilitation Potential Physical Therapy Diagnosis: This patient underwent s/p left TKA with pain ,edema, decrease ROM ,strength, balance thus impair function with gait ,stairs and ADLS' thus will benefit from skilled PT Rehabilitation Potential: Good - Anticipated Interventions Patient/Client Instruction: Educate patient on: Condition, Plan of Care For the Purpose of:: To increase ROM, To improve muscle performance and motor function, To improve ability to perform ADL's, To increase tolerance to activity/condition/position, To improve performance and independence with ADL's, To improve ability of physical actions for home/community/work/leisure, To improve health of tissue, To decrease soft tissue restriction, To increase flexibility/ROM, To improve endurance, To improve balance, To improve safety with gait, To assume or resume ADL's, To improve ability to perform tasks related to life management Therapeutic Exercise to Include: Strength training, Endurance training, Balance training, Flexibilty training, Gait and locomotor training, Passive ROM, Active ROM Comment: QUDS/HAMS/HIP For the Purpose of:: To decrease pain, To increase ROM, To improve muscle performance and motor function, To improve ability to perform ADL's, To increase tolerance to activity/condition/position, To improve ability of physical actions for home/community/work/leisure, To improve gait and locomotor functions, To improve health of tissue, To decrease soft tissue restriction, To increase flexibility/ROM, To reduce risk of recurrence, To improve ability to perform tasks related to life management Cryotherapy (ice pack, ice massage): Yes For the Purpose of:: To decrease pain, To decrease swelling/inflammation Thank you for the opportunity to evaluate your patient. For Medicare and Medicare HMO plans, please review the plan of care and approve it. It will need to be FAXED BACK to us at [phone] for Medicare purposes. For Medicare only, by signing this I certify the plan of care. Please let me know if there are questions or concerns regarding this plan of care. Physician Signature: Date:
--- NOTE | 2021-04-09 11:03 | HP.PTDCSUM ---
It has been my pleasure to treat MARY BOSTON referred by Dr. Wan Flores DO, with the diagnosis of LEFT TKA for a total of 13 visit(s). Discharge Date: 04/09/21 Please see the following information for a summary of their discharge status. Subjective: Doing well ..seen DR parra for dc/ Left Knee Pain Intensity (Out of 10): 1 % Improvement: 90 Objective/Function: GAIT: reciprocal pattern. BALANCE: good. STAIRS: alternating stairs with rail. AROM: 0-120 supine knee flexion. MMT: quads 27.5/hams23.6. Goal 1:: Patient to be I with HEP Goal Progress: Goal Met Goal 2:: Patient to normalize gait community distances. Goal Progress: Goal Met Goal 3:: Patient to improve dynamic balance to good Goal Progress: Goal Met Goal 4:: Patient to improve AROM supine knee flexion 5 -110 degrees or > to improve function and gait Goal Progress: Goal Met Goal 5:: Patient to improve MMT- peak force quads 50 ,hams 60,hip flexion 50 or > to improve function. Goal Progress: Goal Met Goal 6:: Patient to improve LFES score by 15 points or > to improve function Goal Progress: Goal Met Plan: d/c to HEP Discharge Comments: hep and gym at If there are questions or concerns regarding this patient's physical therapy, please feel free to call me at [phone]. Thank you for the referral of this patient. Sincerely, William Hanks, PT, Cert MDT, OCS Balance/Gait/Functional tests - Balance/Special Test Scores Lower Extremity Functional Score: 62 TUG Test Time Seconds: 7.8 Tug Test: <10 sec.=free mobile
== END 2021-04-09 19:00 | disposition home or self-care (01) ==
LOC: PT 10:30
PROVIDERS: PCP Family Medicine Geriatric Medicine; Referring Provider Orthopaedic Surgery; Visit Provider Orthopaedic Surgery
DX: Z47.1 Aftercare following joint replacement surgery (principal); Z96.652 Presence of left artificial knee joint
CPT/HCPCS: 97110; 97162

== ENCOUNTER → 2021-05-11 10:30 | Outpatient (CLI) | payer MEDICARE, SELFPAY ==
[2021-05-11 12:52] LABS: Absolute Lymphocyte Count 1.67 X10^3/uL (0.83-4.51); Absolute Neutrophil Count 4.5 X10^3/uL (2.0-7.7); Basophil# 0.04 X10^3/uL; Basophil% 0.6 % (0-1); Eosinophils% 2.8 % (0-5); Hematocrit 33.5 % (37-47); Hemoglobin 9.9 g/dL (12.0-15.0); Lymphocyte # 1.67 X10^3/ul (0.83-4.51); Lymphocyte % 23.5 % (19-41); Mean Corp Hgb Conc 29.6 g/dL (32-36); Mean Corpuscular Hgb 25.3 pg (27.0-32.0); Mean Corpuscular Volume 85.5 fL (81-99); Mean Platelet Vol. 10.2 fl (6.2-12.0); Monocyte# 0.71 X10^3/uL; NRBC Flagged by Analyzer 0 % (0-5); Neutrophil # 4.47 X10^3/uL (2.7-7.7); Neutrophil % 62.7 % (47-70); Platelet Count 417 K/mm3 (150-450); RBC Distribution Width CV 15.1 % (11.6-14.6); RBC Distribution Width SD 46.4 fl (35.1-43.9); Red Blood Count 3.92 M/mm3 (4.2-5.4); White Blood Count 7.1 K/mm3 (4.4-11.0)
== END ==
PROVIDERS: PCP Family Medicine Geriatric Medicine; Visit Provider Family Medicine Geriatric Medicine
DX: D64.9 Anemia, unspecified (principal)
CPT/HCPCS: 36415; 85025

== ENCOUNTER → 2021-07-05 17:03 | Outpatient (CLI) | payer MEDICARE, SELFPAY ==
[2021-07-05 17:28] LABS: Absolute Lymphocyte Count 1.94 X10^3/uL (0.83-4.51); Absolute Neutrophil Count 6.7 X10^3/uL (2.0-7.7); Basophil# 0.02 X10^3/uL; Basophil% 0.2 % (0-1); Hematocrit 30.1 % (37-47); Lymphocyte # 1.94 X10^3/ul (0.83-4.51); Lymphocyte % 20.9 % (19-41); Mean Corp Hgb Conc 29.9 g/dL (32-36); Mean Corpuscular Hgb 24.7 pg (27.0-32.0); Mean Corpuscular Volume 82.5 fL (81-99); Mean Platelet Vol. 10.7 fl (6.2-12.0); Monocyte# 0.56 X10^3/uL; NRBC Flagged by Analyzer 0 % (0-5); Neutrophil # 6.71 X10^3/uL (2.7-7.7); Neutrophil % 72.3 % (47-70); POSITIVE MORPHOLOGY YES; Platelet Count 273 K/mm3 (150-450); RBC Distribution Width CV 15.3 % (11.6-14.6); RBC Distribution Width SD 46.4 fl (35.1-43.9); Red Blood Count 3.65 M/mm3 (4.2-5.4); White Blood Count 9.3 K/mm3 (4.4-11.0)
[2021-07-05 17:41] LABS: Differential Indicated SCAN CRITERIA MET
--- NOTE | 2021-07-05 17:42 | RAD_ITS ---
STUDY: X-RAY CHEST REASON FOR EXAM: Female, 70 years old. CONGESTION OF MUCOSA TECHNIQUE: PA and lateral COMPARISON: 08/05/2016 FINDINGS: Mild bilateral perihilar interstitial thickening with bronchovascular cuffing slightly worse on the right which may be on the basis of pulmonary interstitial edema.. There is no demonstrated pleural abnormality. Normal size heart. Normal mediastinum and masoud. Normal visualized pulmonary arteries. Normal visualized aortic arch and descending thoracic aorta. Dorsal spine demonstrates mild spondylosis. Normal visualized ribs, clavicles, and shoulders. Large intrathoracic hernia with air-fluid level There is no demonstrated abnormality of the visualized soft tissue structures of the upper abdomen. RAD/Chest PA and Lateral IMPRESSION: Question mild pulmonary interstitial edema or infiltrate slightly greater on the right Electronically Signed: Amrik Morales MD at 19:05 EST , Service support ,
[2021-07-05 18:02] LABS: Differential Comment SCANNED
[2021-07-05 18:44] LABS: Anion Gap 7 (5-15); BUN 25 mg/dL (7-18); BUN/Creat Ratio 27.6 RATIO (10-20); Calcium,Total 8.9 mg/dL (8.5-10.1); Chloride 105 mmol/L (98-107); Creatinine, Serum 0.91 mg/dL (0.55-1.02); EST Glomerular Filtration Rate 65 mL/min (>60); Est Glom Filt Rate - Afr Amer 79 mL/min (>60); Glucose 130 mg/dL (74-106); Potassium 4.3 mmol/L (3.5-5.1); Sodium Level 138 mmol/L (136-145)
== END ==
PROVIDERS: PCP Family Medicine Geriatric Medicine; Visit Provider Family Medicine Geriatric Medicine
DX: I10 Essential (primary) hypertension (principal); R69 Illness, unspecified; D64.9 Anemia, unspecified
CPT/HCPCS: 36415; 71046; 80048; 85025

== ENCOUNTER → 2021-07-06 12:40 | Outpatient (CLI) | payer MEDICARE, SELFPAY | PROVIDERS: PCP Family Medicine Geriatric Medicine; Referring Provider Family Medicine Geriatric Medicine; Visit Provider Family Medicine Geriatric Medicine | DX: U07.1 COVID-19 (principal); R68.83 Chills (without fever) | CPT/HCPCS: 87635; 87804; 87807; C9803; U0005; U0003 ==

== ENCOUNTER 2021-07-09 09:37 | Emergency (ER) | payer MEDICARE, SELFPAY ==
[2021-07-09 09:38] VITALS: BP 145/72; PULSE 90; RESP 16; TEMP 36.6; O2SAT 95; BMI 37.1
[2021-07-09 09:45] VITALS: O2SAT 95
--- NOTE | 2021-07-09 09:59 | EDS_ITS ---
HPI History of Present Illness Chief Complaint: Shortness of Breath Informant: patient Onset/Context/Timing Onset: Weeks (1) Context: gradual Timing: Intermittent Quality: Positive for Dyspnea on exertion (Or with conversation) Current Severity: Mild Maximum Severity: Moderate Worsened by: Exertion and Coughing Relieved by: Rest Associated Symptoms cough Chest Pain: Positive for None Narrative Narrative: Patient currently on day #11 of COVID-19, she was tested 3 days ago on Friday and was positive. She has been getting short of breath for the past week. Currently, symptoms are slowly progressing as opposed to improving. She just got a home pulse oximeter yesterday, and since she has been checking it, she has been between 81-89% and not in the 90s at all. From her PCP she has been on cefdinir and doxycycline since before she tested positive, and now prednisone and cough syrup. She was vaccinated with the [employer] viral vector vaccine. No leg pain or swelling. No history of DVT or PE. Not on anticoagulation for any other reason. No chest discomfort. No syncope or near syncope. No other treatments done so far, did not get monoclonal antibody infusion therapy. [facility] Medical History Alcohol use Arthritis Back pain Cardiology follow-up encounter CPAP (continuous positive airway pressure) dependence Diabetes Dietary restriction Former smoker Gastric reflux History of edema History of stress test Hx of echocardiogram Hypertension Shortness of breath on exertion Thyroid disease Wears dentures Wears glasses Wears partial dentures Home Medications ascorbic acid (vitamin C) 1,000 mg PO DAILY@0800 08/27/16 [History Last Taken 08/28/16] aspirin 81 mg PO DAILY 08/27/16 [History Last Taken 02/12/21] famotidine 40 mg PO DAILY 08/27/16 [History Last Taken 02/27/21] levothyroxine 50 mcg PO DAILY 08/27/16 [History Last Taken 02/27/21] losartan-hydrochlorothiazide 1 tab PO DAILY 08/27/16 [History Last Taken 12/19/20] metformin 1,000 mg PO BIDCM 08/27/16 [History Last Taken 08/27/16] atorvastatin 40 mg PO QHS 08/28/16 [History Last Taken 08/27/16] pioglitazone 30 mg tablet 30 mg PO DAILY 09/25/20 [History Last Taken Unknown] potassium chloride 10 mEq tablet,extended release(part/cryst) 10 meq PO DAILY 09/25/20 [History Last Taken Unknown] cyanocobalamin (vitamin B-12) 5,000 mcg PO DAILY 12/05/20 [History Last Taken Unknown] [id number]-[id number]-algal oil 1 each PO BID 12/05/20 [History Last Taken Unknown] acetaminophen 1,000 mg PO Q6H #100 tab 02/28/21 [Rx Last Taken Unknown] polysaccharide iron complex 150 mg iron capsule mg PO 04/09/21 [History Last Taken Unknown] Allergy/AdvReac Type Severity Reaction Status Date / Time No Known Allergies Allergy Verified 02/27/21 05:40 Surgical History History of arthroplasty of right knee History of cardiac catheterization History of lumpectomy of right breast Hx of left cataract extraction Hx of right cataract extraction Hx of tonsillectomy Hx of tubal ligation S/P thyroid biopsy Status post left knee replacement Social History Smoking Status: Former smoker ROS ROS ED Constitutional Constitutional ED: Reports body ache(s), chills, fatigue, fever(s), headache(s) and malaise Eyes Eyes: Denies change in vision or diplopia ENT ENT ED: Denies rhinorrhea or sore throat Cardiovascular Cardiovascular: Denies chest pain or palpitations Respiratory/Chest Respiratory/Chest: Reports cough, dyspnea and dyspnea on exertion Gastrointestinal Gastrointestinal: Reports diarrhea; Denies abdominal pain, nausea or vomiting Genitourinary Genitourinary ED: Denies dysuria or hematuria Musculoskeletal Musculoskeletal: Denies back pain or neck pain Integumentary Denies abscess or rash Neurologic Neurologic: Reports headache(s); Denies paresthesias or weakness Psychiatric Psychiatric: Denies anxiety or suicidal thoughts EXAM Physical Exam Const Vital Signs: 07/09/21 09:38 07/09/21 10:22 Temperature 97.8 F Temperature Source Temporal Pulse Rate 90 Respiratory Rate 16 Respiratory Effort Short of Breath Respiratory Depth Normal Respiratory Pattern Tachypnea Blood Pressure 145/72 H Blood Pressure Mean 96 Pulse Ox 95 Oxygen Delivery Method Room Air Room Air Positive well nourished and well developed Constitutional Narrative: Malaised-appearing, no distress General Appearance ED: well developed and NAD HEENT Reports moist mucous membranes normocephalic and atraumatic Eyes PERRL and EOMs intact bilaterally Neck full ROM and supple Resp normal respiratory effort and clear to auscultation bilaterally Cardio regular rate, regular rhythm and no murmurs Rate: Negative for tachycardic GI non-tender and non-distended Auscultation: normoactive bowel sounds Palpation: soft Back/Spine no CVA tenderness General Back: other FROM Extremity normal to inspection and no calf tenderness General Extremety ED: Negative for edema, pulses abnormal or tenderness General Extremity: Negative for edema or pulses abnormal Neuro oriented x3, CN's II-XII intact bilaterally and no sensory deficits noted Sensorium / Orientation: awake and alert Motor Exam: strength 5/5 throughout Skin no rashes or lesions noted and no wounds MDM MDM MDM Narrative Medical decision making narrative: As expected in acute Covid her D-dimer was significantly elevated the rest of her labs are unremarkable. Chest x-ray initially performed does show findings consistent with Covid pneumonitis bilaterally, CT angiography of the chest was then obtained and rules out pulmonary embolus associated with this. Patient remained in the mid 90s at rest, she desatted to 87% on room air before quickly returning into the 90s when resting. She is already been put on steroids by her doctor, plan will be to get her 2 L oxygen nasal cannula and discharged home. I did offer admission, the patient prefers to go home states she is feeling malaised but able to get around okay. Lab Data Attestation: I reviewed the patient's lab results. Labs: Laboratory Results - last 24 hr 07/09/21 07/09/21 07/09/21 10:10 10:10 10:10 WBC 11.4 H RBC 3.88 L Hgb 9.6 L Hct 30.7 L MCV 79.1 L MCH 24.7 L MCHC 31.3 L RDW Std Deviation 42.4 RDW Coeff of Nette 14.8 H Plt Count 406 MPV 9.9 Immature Gran % (Auto) 1.600 H Neut % (Auto) 81.0 H Lymph % (Auto) 8.5 L [place] % (Auto) 8.6 Eos % (Auto) 0.1 Baso % (Auto) 0.2 Absolute Neuts (auto) 9.2 H Absolute Lymphs (auto) 0.97 Nucleated RBC % 0 D-Dimer Quant (PE/DVT) 1.36 H* Sodium 138 Potassium 3.6 Chloride 104 Carbon Dioxide 26.0 Anion Gap 8 BUN 18 Creatinine 0.77 Estim Creat Clear Calc 49.00 Est GFR (MDRD) Af Amer 95 Est GFR (MDRD) Non-Af 78 BUN/Creatinine Ratio 23.3 H Glucose 160 H Calcium 10.0 Troponin I High Sens 7 Radiography Diagnostic Testing: Clinical Impression(s) from Imaging Studies Chest X-Ray 07/09/21 10:26 IMPRESSION: Multifocal infiltrates with features commonly reported with COVID pneumonia. Unfavorable change. Electronically Signed: Aroldo De La Torre MD ([place]) at 10:42 EST , Service support , Chest CTA 07/09/21 10:39 IMPRESSION: 1. No central or segmental pulmonary embolism. 2. Central parenchymal volume loss. White matter changes that are nonspecific but most commonly associated with chronic small vessel ischemic disease. Electronically Signed: Aroldo De La Torre MD ([place]) at 11:23 EST , Service support , ADDENDUM: 07/09/21 1201 Discharge Plan Triage Chief Complaint: Shortness of Breath ED Provider: Sam Nayak Dx/Rx/DC Orders Clinical Impression: Pneumonia due to COVID-19 virus, Hypoxemia Instructions: Coronavirus Disease 2019 (COVID-19): Caring for Yourself or Others Prescriptions: No Action potassium chloride 10 mEq tablet,ER particles/crystals 10 meq PO DAILY RF: 0 pioglitazone 30 mg tablet 30 mg PO DAILY RF: 0 polysaccharide iron complex 150 mg iron capsule PO RF: 0 metformin 500 MG tablet 1,000 mg PO BIDCM RF: 0 famotidine 40 MG tablet 40 mg PO DAILY RF: 0 aspirin 81 MG tablet,delayed release (DR/EC) 81 mg PO DAILY RF: 0 ascorbic acid (vitamin C) 500 MG tablet 1,000 mg PO DAILY@0800 RF: 0 levothyroxine 50 MCG tablet 50 mcg PO DAILY RF: 0 losartan-hydrochlorothiazide 1 TAB tablet 1 tab PO DAILY RF: 0 atorvastatin 40 MG tablet 40 mg PO QHS RF: 0 [id number]-[id number]-algal oil 1 EACH capsule 1 each PO BID RF: 0 cyanocobalamin (vitamin B-12) 5,000 MCG capsule 5,000 mcg PO DAILY RF: 0 acetaminophen 500 mg Tablet 1,000 mg PO Q6H Qty: 100 RF: 0 Primary Care Provider: Nic Kern Chi Referrals: Nic Kern Chi, MD [Primary Care Provider] - As Needed Activity Restrictions/Additional Instructions: Continue checking your pulse oximetry periodically, and you may increase your oxygen up to 4 L. If you stay below 90% for more than a minute or so, and/or you are feeling like your breathing is getting worse, and you are needing more than 4 L to stay above 90%, return to the emergency department for further evaluation and probable admission to the hospital. Disposition Disposition: Home, Self Care
[2021-07-09 10:22] VITALS: O2SAT 95
--- NOTE | 2021-07-09 10:26 | RAD_ITS ---
STUDY: X-RAY CHEST REASON FOR EXAM: Female, 70 years old. covid sob TECHNIQUE: AP COMPARISON: 07/05/2021 FINDINGS: Patient is rotated. Multifocal infiltrates with features commonly reported with COVID pneumonia. Overall worse since the prior study, particularly along the periphery of the right lung. There is no demonstrated pleural abnormality. Normal size heart. Normal mediastinum and masoud. Normal visualized pulmonary arteries. Normal visualized aortic arch and descending thoracic aorta. No acute bony process. There is no demonstrated abnormality of the visualized soft tissue structures of the upper abdomen. RAD/Chest 1 View (Portable) IMPRESSION: Multifocal infiltrates with features commonly reported with COVID pneumonia. Unfavorable change. Electronically Signed: Aroldo De La Torre MD ([place]) at 10:42 EST , Service support ,
[2021-07-09 10:27] LABS: Absolute Lymphocyte Count 0.97 X10^3/uL (0.83-4.51); Absolute Neutrophil Count 9.2 X10^3/uL (2.0-7.7); Basophil# 0.02 X10^3/uL; Basophil% 0.2 % (0-1); Eosinophil# 0.01 X10^3/uL; Eosinophils% 0.1 % (0-5); Hematocrit 30.7 % (37-47); Hemoglobin 9.6 g/dL (12.0-15.0); Lymphocyte # 0.97 X10^3/ul (0.83-4.51); Lymphocyte % 8.5 % (19-41); Mean Corp Hgb Conc 31.3 g/dL (32-36); Mean Corpuscular Hgb 24.7 pg (27.0-32.0); Mean Corpuscular Volume 79.1 fL (81-99); Mean Platelet Vol. 9.9 fl (6.2-12.0); Monocyte# 0.98 X10^3/uL; Monocyte% 8.6 % (0-10); NRBC Flagged by Analyzer 0 % (0-5); Neutrophil # 9.21 X10^3/uL (2.7-7.7); Platelet Count 406 K/mm3 (150-450); RBC Distribution Width CV 14.8 % (11.6-14.6); RBC Distribution Width SD 42.4 fl (35.1-43.9); Red Blood Count 3.88 M/mm3 (4.2-5.4); White Blood Count 11.4 K/mm3 (4.4-11.0)
[2021-07-09 10:37] LABS: D-Dimer Quantitative (DVT/PE) 1.36 FEU/ug/m (0.27-0.49)
--- NOTE | 2021-07-09 10:39 | CT_ITS ---
STUDY: CTA CHEST REASON FOR EXAM: Female, 70 years old. covid, sob, elevated d-dimer RADIATION DOSAGE (If Supplied By Facility): CTDIvol = ( 11.24 ) mGy, DLP = ( 479.81 ) mGycm TECHNIQUE: The examination was performed with the intravenous administration of IV 100mL Isovue-370. Post-processing of the angiographic images was performed, with multiplanar reformation and 3D reconstruction. Individualized dose optimization techniques were used for this CT. COMPARISON: None. FINDINGS: Normal enhancement of the main pulmonary artery and right and left pulmonary arteries. Normal enhancement of the bilateral peripheral pulmonary arteries. There is no demonstrated pulmonary embolism. Normal thoracic aorta and visualized great vessels. There is no demonstrated aortic dissection. Normal heart and pericardium. There are calcifications of the coronary arteries. Normal mediastinum. Normal hilar regions. Normal visualized trachea and bronchi. The lungs are well expanded. Multifocal peripheral dominant, groundglass dominant infiltrates with features commonly reported with COVID pneumonia. Normal pleura. Normal chest wall structures. There are degenerative changes of thoracic spine. Large hiatal hernia. CT/CTA Chest W/WO Contrast IMPRESSION: 1. No central or segmental pulmonary embolism. 2. Central parenchymal volume loss. White matter changes that are nonspecific but most commonly associated with chronic small vessel ischemic disease. Electronically Signed: Aroldo De La Torre MD ([place]) at 11:23 EST , Service support ,
[2021-07-09 10:42] LABS: Anion Gap 8 (5-15); BUN 18 mg/dL (7-18); BUN/Creat Ratio 23.3 RATIO (10-20); Chloride 104 mmol/L (98-107); Creatinine, Serum 0.77 mg/dL (0.55-1.02); EST Glomerular Filtration Rate 78 mL/min (>60); Est Glom Filt Rate - Afr Amer 95 mL/min (>60); Glucose 160 mg/dL (74-106); Potassium 3.6 mmol/L (3.5-5.1); Sodium Level 138 mmol/L (136-145); Troponin-I HS 7 pg/mL (3.0-54.0)
--- NOTE | 2021-07-09 12:12 | CM.ED ---
Addendum entered by Verito Tabor 07/09/21 13:58: TONY spoke to Director Isabella Pereira. She said that she spoke to Margie and she advised that this patient has last home concentrator from [facility]. TONY received call from Margie at [facility]. She advised that patient can be discharged home and to have patient call in and then she will dispatch a public transit bus driver to the residence. TONY updated Suly SANDRA that patient can be discharged home and [facility] will follow up with patient. TONY sent email to [email or web address] to document patient's discharge home from the ED with home oxygen. 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 TONY called and left voice mail for Margie at [facility]. TONY faxed referral paperwork to [facility]. Verito DARDEN
[2021-07-09 13:07] VITALS: O2SAT 97
[2021-07-09 14:07] VITALS: BP 131/69; PULSE 70; RESP 16; O2SAT 99
--- NOTE | 2021-07-09 14:08 | ED.RN ---
REVIEWED D/C INSTRUCTIONS, FOLLOW UP CARE, AND S/S THAT WOULD WARRANT A RETURN TO THE ED WITH PT. PT VERBALIZED AN UNDERSTANDING AND DENIES FURTHER QUESTIONS FOR THIS RN. PT SKIN P/W/D, RESP EVEN AND UNLABORED, PT A&O X 3, NO DISTRESS NOTED. PT ASSISTED OUT OF ED IN WHEELCHAIR ON HOME O2.
--- NOTE | 2021-07-10 14:27 | CASEMGMT ---
JOCY ARMENDARIZ ED COVID Home O2 Follow-up: This RN CM contacted pt for ED Home O2 follow-up. Pt states she is feeling a little bit better than I was. Pt states she is wearing her O2 at 2l/min and reports her PO to be 97%. 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 Pt states she has remained isolated and has neighbors and friends dropping off food and running errands for her. Pt states she has been in touch with Dr. Kern's office and they cancelled her appointment that was scheduled for tomorrow. Encouraged pt to contact them if they have not called her back about a rescheduled appointment day and time. Pt expressed understanding. Pt denies any further questions or concerns at this time. Sanket Pereira RN CM
--- NOTE | 2021-07-11 14:13 | CASEMGMT ---
JOC[facility] ARMENDAR[facility] ED COVID Home O2 Follow-up: Patient states she is doing well and getting her taste back slowly. Patient states she is wearing her home oxygen and levels have been around 98%. Patient states she has had difficulty scheduling appt with Dr. Kern as they stated they will not see her till she is out of quarantine. JOCY ARMENDARIZ called Dr. Kern's office to updated them on follow-up appt and that patient will be out of quarantine on 07/17. Dr. Kern's office stated they will call patient to schedule appt for after 07/17/21.
--- NOTE | 2021-07-13 14:00 | CASEMGMT ---
[facility] ARMEND[facility] ED COVID Home O2 Follow-up: This JOCY ARMENDARIZ contacted pt via phone for follow-up. Pt states she is doing better and reports her PO to be 97-98% on O2 at 2l/min and denies any c/o SOB. Pt states her cough has decreased and has not needed to take rafi cough syrup for a couple of days. States she continues to eat and her appetite is increasing. Neighbors are continuing to bring her food including three plates of Thanksgiving dinner yesterday. Pt states she is remaining quarantined. She has not heard from Dr. Kern's office as of this date and time but is aware that they know of her quarantine end date and intention to schedule after 07/17. Pt encouraged to call if she has any questions or concerns prior to that time. Pt denies any further questions or concerns at this time. Sanket Pereira RN CM
== END 2021-07-09 14:22 | disposition home or self-care (01) ==
PROVIDERS: Emergency Provider Emergency Medicine; PCP Family Medicine Geriatric Medicine
DX: U07.1 COVID-19 (principal); J12.82 Pneumonia due to coronavirus disease 2019; R09.02 Hypoxemia; E11.9 Type 2 diabetes mellitus without complications; I10 Essential (primary) hypertension; K21.9 Gastro-esophageal reflux disease without esophagitis; M19.90 Unspecified osteoarthritis, unspecified site; Z79.82 Long term (current) use of aspirin; Z79.84 Long term (current) use of oral hypoglycemic drugs; Z87.891 Personal history of nicotine dependence; Z79.899 Other long term (current) drug therapy
CPT/HCPCS: 71045; 71275; 80048; 84484; 85025; 85379; 96360; 99284; Q9967; A4216

== ENCOUNTER → 2021-07-19 15:38 | Outpatient (CLI) | payer MEDICARE, SELFPAY ==
[2021-07-19 16:19] LABS: Absolute Lymphocyte Count 1.51 X10^3/uL (0.83-4.51); Absolute Neutrophil Count 8.6 X10^3/uL (2.0-7.7); Basophil# 0.04 X10^3/uL; Basophil% 0.4 % (0-1); Eosinophil# 0.12 X10^3/uL; Eosinophils% 1.1 % (0-5); Hematocrit 33.2 % (37-47); Lymphocyte # 1.51 X10^3/ul (0.83-4.51); Lymphocyte % 13.7 % (19-41); Mean Corp Hgb Conc 30.1 g/dL (32-36); Mean Corpuscular Hgb 24.4 pg (27.0-32.0); Mean Corpuscular Volume 81.2 fL (81-99); Mean Platelet Vol. 9.9 fl (6.2-12.0); Monocyte# 0.66 X10^3/uL; NRBC Flagged by Analyzer 0 % (0-5); Neutrophil # 8.64 X10^3/uL (2.7-7.7); Neutrophil % 78.3 % (47-70); Platelet Count 480 K/mm3 (150-450); RBC Distribution Width CV 14.6 % (11.6-14.6); RBC Distribution Width SD 42.7 fl (35.1-43.9); RET-HE 29.3 pg (30-35); Red Blood Count 4.09 M/mm3 (4.2-5.4); Reticulocyte Count 1.36 % (0.5-1.5)
[2021-07-19 16:56] LABS: Ferritin 45 ng/mL (8-252); Iron 29 ug/dL (50-170); Iron Binding Capacity,Total 352 ug/dL (250-450)
[2021-07-19 16:59] LABS: Vitamin B12 > 2000 pg/mL (211-911)
[2021-07-22 20:07] LABS: Folate, RBC (Hct) Test 31.6 % (34.0-46.6)
[2021-07-23 08:59] LABS: Folates, RBC Test 1886 ng/mL (>498)
== END ==
PROVIDERS: PCP Family Medicine Geriatric Medicine; Visit Provider Family Medicine Geriatric Medicine
DX: D64.9 Anemia, unspecified (principal)
CPT/HCPCS: 36415; 82607; 82728; 82747; 83540; 83550; 85014; 85025; 85045

== ENCOUNTER 2021-08-21 10:15 | Outpatient (CLI) | payer MEDICARE, SELFPAY ==
[2021-08-21 14:09] LABS: Absolute Lymphocyte Count 1.66 X10^3/uL (0.83-4.51); Absolute Neutrophil Count 5.4 X10^3/uL (2.0-7.7); Basophil# 0.04 X10^3/uL; Basophil% 0.5 % (0-1); Eosinophils% 2.5 % (0-5); Hematocrit 32.2 % (37-47); Hemoglobin 9.6 g/dL (12.0-15.0); Lymphocyte # 1.66 X10^3/ul (0.83-4.51); Lymphocyte % 20.8 % (19-41); Mean Corp Hgb Conc 29.8 g/dL (32-36); Mean Corpuscular Hgb 24.7 pg (27.0-32.0); Mean Corpuscular Volume 82.8 fL (81-99); Mean Platelet Vol. 10.4 fl (6.2-12.0); Monocyte# 0.63 X10^3/uL; Monocyte% 7.9 % (0-10); NRBC Flagged by Analyzer 0 % (0-5); Neutrophil # 5.44 X10^3/uL (2.7-7.7); Neutrophil % 67.9 % (47-70); Platelet Count 382 K/mm3 (150-450); RBC Distribution Width CV 15.4 % (11.6-14.6); RBC Distribution Width SD 46.3 fl (35.1-43.9); Red Blood Count 3.89 M/mm3 (4.2-5.4)
== END 2021-08-21 23:59 | disposition home or self-care (01) ==
LOC: POLAB3 10:15
PROVIDERS: PCP Family Medicine Geriatric Medicine; Visit Provider Family Medicine Geriatric Medicine
DX: D64.9 Anemia, unspecified (principal)
CPT/HCPCS: 36415; 85025

== ENCOUNTER 2021-08-30 09:22 | Outpatient (CLI) | payer MEDICARE, SELFPAY ==
[2021-08-30 10:57] LABS: Ferritin 11 ng/mL (8-252); Iron 45 ug/dL (50-170)
[2021-08-31 21:07] LABS: Endomysial Antibody IgA Negative (Negative)
[2021-09-01 16:11] LABS: Immunoglobulin A 235 mg/dL (64-422); t-Transglutaminase IgA <2 U/mL (0-3)
== END 2021-08-30 23:59 | disposition short-term general hospital (02) ==
LOC: MTLAB 09:24
PROVIDERS: PCP Family Medicine Geriatric Medicine; Referring Provider Internal Medicine Gastroenterology; Visit Provider Internal Medicine Gastroenterology
DX: D50.9 Iron deficiency anemia, unspecified (principal)
CPT/HCPCS: 36415; 82728; 82784; 83516; 83540; 86255

== ENCOUNTER 2021-10-16 09:20 | Outpatient (CLI) | payer MEDICARE, SELFPAY ==
[2021-10-16 12:30] LABS: Absolute Lymphocyte Count 1.81 X10^3/uL (0.83-4.51); Absolute Neutrophil Count 4.4 X10^3/uL (2.0-7.7); Basophil# 0.04 X10^3/uL; Basophil% 0.6 % (0-1); Eosinophil# 0.25 X10^3/uL; Eosinophils% 3.5 % (0-5); Hematocrit 35.2 % (37-47); Hemoglobin 11.1 g/dL (12.0-15.0); Lymphocyte # 1.81 X10^3/ul (0.83-4.51); Lymphocyte % 25.2 % (19-41); Mean Corp Hgb Conc 31.5 g/dL (32-36); Mean Corpuscular Hgb 26.2 pg (27.0-32.0); Mean Corpuscular Volume 83.2 fL (81-99); Mean Platelet Vol. 10.3 fl (6.2-12.0); Monocyte# 0.62 X10^3/uL; Monocyte% 8.6 % (0-10); NRBC Flagged by Analyzer 0 % (0-5); Neutrophil # 4.43 X10^3/uL (2.7-7.7); Neutrophil % 61.7 % (47-70); Platelet Count 348 K/mm3 (150-450); RBC Distribution Width CV 17.1 % (11.6-14.6); RBC Distribution Width SD 52.1 fl (35.1-43.9); Red Blood Count 4.23 M/mm3 (4.2-5.4); White Blood Count 7.2 K/mm3 (4.4-11.0)
[2021-10-16 12:51] LABS: Vitamin D,25 Hydroxy 15.6 ng/mL
[2021-10-16 13:28] LABS: ALB/GLOB Ratio 0.8 RATIO (0.9-2.4); AST(SGOT) 26 U/L (15-37); Alanine Aminotransfer ALT/SGPT 32 U/L (13-56); Albumin, Serum 3.5 g/dL (3.2-5.0); Alkaline Phosphatase 96 U/L (45-117); Anion Gap 9 (5-15); BUN 16 mg/dL (7-18); BUN/Creat Ratio 22.2 RATIO (10-20); Calcium,Total 9.5 mg/dL (8.5-10.1); Chloride 104 mmol/L (98-107); Cholesterol 109 mg/dL (200); Creatinine, Serum 0.72 mg/dL (0.55-1.02); EST Glomerular Filtration Rate 85 mL/min (>60); Est Glom Filt Rate - Afr Amer 102 mL/min (>60); Globulin 4.2 g/dL (2.2-4.2); Glucose 105 mg/dL (74-106); High Density Lipoprotein 66 mg/dL; Potassium 3.6 mmol/L (3.5-5.1); Protein, Total 7.7 g/dL (6.4-8.2); Sodium Level 139 mmol/L (136-145); Thyroid Stim Hormone (TSH) 0.98 uIU/mL (0.358-3.74); Triglycerides 80 mg/dL; Very Low Density Lipoprotein 16 mg/dL (5-40)
== END 2021-10-16 23:59 | disposition home or self-care (01) ==
LOC: POLAB3 09:22
PROVIDERS: PCP Family Medicine Geriatric Medicine; Visit Provider Family Medicine Geriatric Medicine
DX: E11.9 Type 2 diabetes mellitus without complications (principal); E55.9 Vitamin D deficiency, unspecified; E78.5 Hyperlipidemia, unspecified; I10 Essential (primary) hypertension
CPT/HCPCS: 36415; 80053; 80061; 82306; 84443; 85025

== ENCOUNTER 2021-10-23 10:26 | Outpatient (CLI) | payer MEDICARE, SELFPAY ==
--- NOTE | 2021-10-23 10:28 | BI_ITS ---
MAMMOGRAPHY - BILATERAL SCREENING REASON FOR EXAM: Female, 71 years old. Routine annual screening examination. PERTINENT HISTORY: Non-contributory. TECHNIQUE: Digital bilateral breast gabriela (3D mammographic acquisition) in the CC and MLO projections. 2-D mediolateral oblique (MLO) and craniocaudad (CC) views of both breasts were obtained. CAD: Full Field Digital Mammography with Computer Added Detection was performed. COMPARISON: Comparison is made with prior study dated 10/23/2017. FINDINGS: Breast Composition: The breasts are almost entirely fatty. There are no dominant masses or suspicious calcifications. No other significant abnormalities are identified. There has been no significant change since the prior study. BI/SCRN MAMM (CAD)W/GABRIELA BILAT IMPRESSION: Stable bilateral screening mammogram. Yearly follow-up mammogram recommended. (A) ASSESSMENT CATEGORY: BIRADS Category 1: Negative. A letter regarding these results will be sent to the patient by the facility within 30 days. Approximately 10% of breast cancers are not detected by mammography. A normal mammogram should not delay biopsy of a clinically suspicious abnormality. [id number] Electronically Signed: Alden Berg MD at 12:46 EST ,
== END 2021-10-23 23:59 | disposition home or self-care (01) ==
LOC: OPBI 10:27
PROVIDERS: PCP Family Medicine Geriatric Medicine; Visit Provider Family Medicine Geriatric Medicine
DX: Z12.31 Encounter for screening mammogram for malignant neoplasm of breast (principal)
CPT/HCPCS: 77063; 77067

== ENCOUNTER 2021-11-26 12:41 | Outpatient (CLI) | payer MEDICARE, SELFPAY ==
--- NOTE | 2021-11-26 14:31 | NEURO_ITS ---
NCS and/or EMG Patient Report Ordering Doctor: Nic Kern Chi DATE OF SERVICE: 11/26/21 Indication: Several months of left hand weakness and sensory loss. Evaluate for entrapment neuropathy. Findings: Nerve conduction studies were performed in the left upper extremity. The left median motor study recording the abductor pollicis brevis showed a markedly reduced amplitude, prolonged distal latency and slowed conduction velocity. The left ulnar motor study recording the abductor digiti minimi showed a normal ampl itude, normal distal latency and normal conduction velocity. No conduction block or focal slowing was present across the elbow. The left median sensory response recording digit two showed a borderline amplitude, prolonged latency and markedly slowed conduction velocity. The left ulnar sensory response recording digit five showed a normal amplitude, latency and conduction velocity. The left radial sensory response recording over the extensor snuff box showed a normal amplitude, latency and conduction velocity. Left median-ulnar lumbrical / interosseous motor latencies showed a prolonged me vicki latency compared to the ulnar. Needle EMG of the left upper extremity muscles was performed. Active denervation was seen in the left abductor pollicis brevis muscle. No volitional motor units were seen in the abductor pollicis brevis muscles. All other motor unit morphology, activation and recruitment patterns were normal. Impression: This is an abnormal study. There is electrophysiologic evidence of a severe median neuropathy across the left wrist with ongoing active denervation of the thenar muscles. These findings are compatible with the clinical diagnosis of severe carpal tunnel syndrome. Monty Rueda D.O. Multi Select Codes Neurology Neurology Interp Codes: 31076-44 Musc test done w/n test comp (interp) and 97096-44 Nrv cndj test 7-8 studies (interp)
== END 2021-11-26 23:59 | disposition home or self-care (01) ==
LOC: PSN 12:42
PROVIDERS: PCP Family Medicine Geriatric Medicine; Referring Provider Family Medicine Geriatric Medicine; Visit Provider Family Medicine Geriatric Medicine
DX: R20.2 Paresthesia of skin (principal)
CPT/HCPCS: 95886; 95910

== ENCOUNTER → 2022-04-10 | Outpatient (CLI) | payer MEDICARE, SELFPAY ==
--- NOTE | 2022-04-10 16:13 | RAD_ITS ---
STUDY: X-RAY - THORACIC SPINE REASON FOR EXAM: Female, 71 years old. THORACIC BACK PAIN TECHNIQUE: 3 view(s) of the thoracic spine were obtained. COMPARISON: None. FINDINGS: There is an increase in the normal thoracic kyphosis. There is no substantial scoliosis. There is multilevel endplate spondylosis of the thoracic vertebrae. There is multilevel disc space narrowing of the thoracic spine. Mild wedging T4 and T7. The soft tissue structures are unremarkable. RAD/Thoracic Spine 3 Views IMPRESSION: Mild compression fractures T4 and T7, age indeterminate. Kyphosis. Spondylosis. Degenerative disc disease. Electronically Signed: Davy De La Paz MD at 0:00 EDT ,
--- NOTE | 2022-04-10 16:20 | RAD_ITS ---
STUDY: X-RAY - ABDOMEN/PELVIS REASON FOR EXAM: Female, 71 years old. LEFT FLANK PAIN TECHNIQUE: AP supine and upright views of the abdomen and pelvis. COMPARISON: None. FINDINGS: Normal visualized lung bases. Large hiatal hernia. Several gas-filled loops of small bowel. Increased stool. The visualized liver, spleen and kidneys are grossly normal in size and morphology. Normal soft tissue structures. Mild scoliosis and spondylosis. RAD/Abd Inc Decub and/or Erect IMPRESSION: Increased stool. Mild ileus. large hiatal hernia. Electronically Signed: Davy De La Paz MD at 0:03 EDT ,
== END | disposition home or self-care (01) ==
LOC: RAD 16:10
PROVIDERS: PCP Family Medicine Geriatric Medicine; Referring Provider Family Medicine Geriatric Medicine; Visit Provider Family Medicine Geriatric Medicine
DX: R10.30 Lower abdominal pain, unspecified (principal); M54.6 Pain in thoracic spine
CPT/HCPCS: 72072; 74019

== ENCOUNTER → 2022-04-16 | Outpatient (CLI) | payer MEDICARE, SELFPAY ==
[2022-04-16 12:03] LABS: Absolute Lymphocyte Count 2.63 X10^3/uL (0.83-4.51); Absolute Neutrophil Count 6.6 X10^3/uL (2.0-7.7); Basophil# 0.05 X10^3/uL; Basophil% 0.5 % (0-1); Eosinophil# 0.28 X10^3/uL; Eosinophils% 2.6 % (0-5); Hematocrit 37.1 % (37-47); Hemoglobin 11.7 g/dL (12.0-15.0); Lymphocyte # 2.63 X10^3/ul (0.83-4.51); Lymphocyte % 24.5 % (19-41); Mean Corp Hgb Conc 31.5 g/dL (32-36); Mean Corpuscular Volume 92.1 fL (81-99); Mean Platelet Vol. 10.4 fl (6.2-12.0); Monocyte% 10.2 % (0-10); NRBC Flagged by Analyzer 0 % (0-5); Neutrophil # 6.58 X10^3/uL (2.7-7.7); Neutrophil % 61.2 % (47-70); Platelet Count 290 K/mm3 (150-450); RBC Distribution Width CV 13.3 % (11.6-14.6); RBC Distribution Width SD 45.3 fl (35.1-43.9); Red Blood Count 4.03 M/mm3 (4.2-5.4); White Blood Count 10.8 K/mm3 (4.4-11.0)
[2022-04-16 12:18] LABS: Vitamin D,25 Hydroxy 19.6 ng/mL
[2022-04-16 12:27] LABS: ALB/GLOB Ratio 0.9 RATIO (0.9-2.4); AST(SGOT) 18 U/L (15-37); Alanine Aminotransfer ALT/SGPT 33 U/L (13-56); Albumin, Serum 3.4 g/dL (3.2-5.0); Alkaline Phosphatase 98 U/L (45-117); Anion Gap 6 (5-15); BUN 18 mg/dL (7-18); BUN/Creat Ratio 24.6 RATIO (10-20); Calcium,Total 9.2 mg/dL (8.5-10.1); Chloride 104 mmol/L (98-107); Cholesterol 102 mg/dL (200); Creatinine, Serum 0.73 mg/dL (0.55-1.02); EST Glomerular Filtration Rate 83 mL/min (>60); Est Glom Filt Rate - Afr Amer 101 mL/min (>60); Globulin 3.7 g/dL (2.2-4.2); Glucose 101 mg/dL (74-106); High Density Lipoprotein 56 mg/dL; Potassium 4.2 mmol/L (3.5-5.1); Protein, Total 7.1 g/dL (6.4-8.2); Sodium Level 139 mmol/L (136-145); Thyroid Stim Hormone (TSH) 1.62 uIU/mL (0.358-3.74); Triglycerides 140 mg/dL; Very Low Density Lipoprotein 28 mg/dL (5-40)
== END | disposition home or self-care (01) ==
LOC: POLAB3 09:33
PROVIDERS: PCP Family Medicine Geriatric Medicine; Visit Provider Family Medicine Geriatric Medicine
DX: I10 Essential (primary) hypertension (principal); E11.9 Type 2 diabetes mellitus without complications; E78.5 Hyperlipidemia, unspecified; E55.9 Vitamin D deficiency, unspecified
CPT/HCPCS: 36415; 80053; 80061; 82306; 84443; 85025

== ENCOUNTER → 2022-06-04 | Outpatient (CLI) | payer MEDICARE, SELFPAY ==
--- NOTE | 2022-06-04 10:47 | BD_ITS ---
STUDY: DUAL ENERGY X-RAY ABSORPTIOMETRY / DXA REASON FOR EXAM: Female, 71 years old. Post menopausal screening TECHNIQUE: Bone Mineral Density (BMD) measurements of lumbar spine and bilateral hips were obtained. COMPARISON: None. FINDINGS: Lumbar Spine (L1-L4): g/cm2 (0.877) / T-score (-1.4) / Z-score (0.8) Findings are suggestive of osteopenia with a moderate fracture risk. Left Femur Total: g/cm2 (0.731) / T-score (-1.7) / Z-score (-0.1) Left Femoral Neck: g/cm2 (0.483) / T-score (-3.3) / Z-score (-1.4) Right Femur Total: g/cm2 (0.788) / T-score (-1.3) / Z-score (0.3) Right Femoral Neck: g/cm2 (0.519) / T-score (-3.0) / Z-score (-1.1) BD/Dexa Bone Density Study IMPRESSION: The patient is considered osteoporotic as outlined below according to World Ze Organization (WHO) criteria with a high fracture risk. Reference Information: The T-score is the number of standard deviations above or below the standard which is normal for young adults at their peak bone mineral density. The World Health Organization (WHO) interprets the T-scores as follows: Above -1 Normal bone density Between -1 and -2.5 Osteopenia Equal to / or below -2.5 Osteoporosis As a practical clinical guideline, osteopenia may be graded as follows: Mild -1 through -1.5 Moderate -1.6 through -2.0 Severe -2.1 through -2.4 The Z-score is the number of standard deviations above or below age-matched controls. A Z-score of less than -1.5 would be considered abnormal. References: 1. NIH Osteoporosis and Related Bone Diseases www osteo.org 2. International Society for Clinical Densitometry www iscd.org 3. National Osteoporosis Foundation www nof.org Electronically Signed: Igor Banks MD at 8:03 EDT ,
== END | disposition home or self-care (01) ==
LOC: OPBD 10:39
PROVIDERS: PCP Family Medicine Geriatric Medicine; Referring Provider Family Medicine Geriatric Medicine; Visit Provider Family Medicine Geriatric Medicine
DX: M81.0 Age-related osteoporosis without current pathological fracture (principal); Z78.0 Asymptomatic menopausal state
CPT/HCPCS: 77080

== ENCOUNTER → 2022-09-12 | Outpatient (CLI) | payer MEDICARE, SELFPAY | END | disposition home or self-care (01) | LOC: PSN 09:38 | PROVIDERS: PCP Family Medicine Geriatric Medicine; Visit Provider Family Medicine Geriatric Medicine | DX: R68.83 Chills (without fever) (principal); Z20.822 Contact with and (suspected) exposure to COVID-19 | CPT/HCPCS: 87635; 87804; 87807; U0003; U0005 ==

== ENCOUNTER 2022-10-21 10:22 | Outpatient (CLI) | payer OTHER, SELFPAY ==
[2022-10-21 13:10] LABS: Absolute Lymphocyte Count 1.53 X10^3/uL (0.83-4.51); Absolute Neutrophil Count 5.8 X10^3/uL (2.0-7.7); Basophil# 0.04 X10^3/uL; Basophil% 0.5 % (0-1); Eosinophil# 0.22 X10^3/uL; Eosinophils% 2.6 % (0-5); Hematocrit 38.3 % (37-47); Hemoglobin 12.1 g/dL (12.0-15.0); Lymphocyte # 1.53 X10^3/ul (0.83-4.51); Lymphocyte % 18.2 % (19-41); Mean Corp Hgb Conc 31.6 g/dL (32-36); Mean Corpuscular Hgb 28.2 pg (27.0-32.0); Mean Corpuscular Volume 89.3 fL (81-99); Mean Platelet Vol. 10.1 fl (6.2-12.0); Monocyte# 0.75 X10^3/uL; Monocyte% 8.9 % (0-10); NRBC Flagged by Analyzer 0 % (0-5); Neutrophil # 5.84 X10^3/uL (2.7-7.7); Neutrophil % 69.3 % (47-70); Platelet Count 341 K/mm3 (150-450); RBC Distribution Width CV 13.6 % (11.6-14.6); RBC Distribution Width SD 44.2 fl (35.1-43.9); Red Blood Count 4.29 M/mm3 (4.2-5.4); White Blood Count 8.4 K/mm3 (4.4-11.0)
[2022-10-21 13:36] LABS: Vitamin D,25 Hydroxy 19.8 ng/mL
[2022-10-21 13:47] LABS: ALB/GLOB Ratio 0.9 RATIO (0.9-2.4); AST(SGOT) 24 U/L (15-37); Alanine Aminotransfer ALT/SGPT 33 U/L (13-56); Albumin, Serum 3.7 g/dL (3.2-5.0); Alkaline Phosphatase 94 U/L (45-117); Anion Gap 9 (5-15); BUN 16 mg/dL (7-18); BUN/Creat Ratio 21.6 RATIO (10-20); Calcium,Total 10.4 mg/dL (8.5-10.1); Chloride 104 mmol/L (98-107); Creatinine, Serum 0.74 mg/dL (0.55-1.02); EST Glomerular Filtration Rate 82 mL/min (>60); Est Glom Filt Rate - Afr Amer 99 mL/min (>60); Glucose 116 mg/dL (74-106); Potassium 3.9 mmol/L (3.5-5.1); Protein, Total 7.7 g/dL (6.4-8.2); Sodium Level 138 mmol/L (136-145); Thyroid Stim Hormone (TSH) 1.16 uIU/mL (0.358-3.74)
== END 2022-10-21 23:59 | disposition home or self-care (01) ==
LOC: POLAB3 10:23
PROVIDERS: PCP Family Medicine Geriatric Medicine; Visit Provider Family Medicine Geriatric Medicine
DX: I10 Essential (primary) hypertension (principal); E11.65 Type 2 diabetes mellitus with hyperglycemia; E78.5 Hyperlipidemia, unspecified; E55.9 Vitamin D deficiency, unspecified
CPT/HCPCS: 36415; 80053; 82306; 84443; 85025

== ENCOUNTER → 2023-04-16 | Outpatient (CLI) | payer OTHER, SELFPAY ==
[2023-04-16 10:32] LABS: Absolute Lymphocyte Count 1.63 X10^3/uL (0.83-4.51); Absolute Neutrophil Count 4.5 X10^3/uL (2.0-7.7); Basophil# 0.05 X10^3/uL; Basophil% 0.7 % (0-1); Eosinophil# 0.44 X10^3/uL; Hematocrit 38.2 % (37-47); Lymphocyte # 1.63 X10^3/ul (0.83-4.51); Lymphocyte % 22.3 % (19-41); Mean Corp Hgb Conc 31.4 g/dL (32-36); Mean Corpuscular Hgb 27.8 pg (27.0-32.0); Mean Corpuscular Volume 88.4 fL (81-99); Mean Platelet Vol. 10.1 fl (6.2-12.0); Monocyte# 0.64 X10^3/uL; Monocyte% 8.8 % (0-10); NRBC Flagged by Analyzer 0 % (0-5); Neutrophil # 4.52 X10^3/uL (2.7-7.7); Neutrophil % 61.8 % (47-70); Platelet Count 356 K/mm3 (150-450); RBC Distribution Width CV 14.3 % (11.6-14.6); RBC Distribution Width SD 46.3 fl (35.1-43.9); Red Blood Count 4.32 M/mm3 (4.2-5.4); White Blood Count 7.3 K/mm3 (4.4-11.0)
[2023-04-16 10:51] LABS: Vitamin D,25 Hydroxy 36.5 ng/mL
[2023-04-16 10:57] LABS: AST(SGOT) 21 U/L (15-37); Alanine Aminotransfer ALT/SGPT 28 U/L (13-56); Albumin, Serum 3.7 g/dL (3.2-5.0); Alkaline Phosphatase 109 U/L (45-117); Anion Gap 4 (5-15); BUN 15 mg/dL (7-18); BUN/Creat Ratio 18.7 RATIO (10-20); Chloride 109 mmol/L (98-107); EST Glomerular Filtration Rate 75 mL/min (>60); Est Glom Filt Rate - Afr Amer 90 mL/min (>60); Globulin 3.8 g/dL (2.2-4.2); Glucose 127 mg/dL (74-106); Potassium 4.7 mmol/L (3.5-5.1); Protein, Total 7.5 g/dL (6.4-8.2); Sodium Level 143 mmol/L (136-145); Thyroid Stim Hormone (TSH) 1.61 uIU/mL (0.358-3.74)
== END | disposition home or self-care (01) ==
LOC: POLAB3 09:24
PROVIDERS: PCP Family Medicine Geriatric Medicine; Visit Provider Family Medicine Geriatric Medicine
DX: E11.65 Type 2 diabetes mellitus with hyperglycemia (principal); I10 Essential (primary) hypertension; E55.9 Vitamin D deficiency, unspecified
CPT/HCPCS: 36415; 80053; 82306; 84443; 85025

== ENCOUNTER → 2023-11-14 | Outpatient (CLI) | payer OTHER, SELFPAY ==
[2023-11-14 10:32] LABS: Absolute Lymphocyte Count 1.82 X10^3/uL (0.83-4.51); Absolute Neutrophil Count 5.5 X10^3/uL (2.0-7.7); Basophil# 0.04 X10^3/uL; Basophil% 0.5 % (0-1); Eosinophil# 0.33 X10^3/uL; Hematocrit 35.4 % (37-47); Hemoglobin 10.8 g/dL (12.0-15.0); Lymphocyte # 1.82 X10^3/ul (0.83-4.51); Lymphocyte % 21.8 % (19-41); Mean Corp Hgb Conc 30.5 g/dL (32-36); Mean Corpuscular Hgb 26.2 pg (27.0-32.0); Mean Corpuscular Volume 85.7 fL (81-99); Mean Platelet Vol. 9.9 fl (6.2-12.0); Monocyte# 0.67 X10^3/uL; NRBC Flagged by Analyzer 0 % (0-5); Neutrophil # 5.45 X10^3/uL (2.7-7.7); Neutrophil % 65.3 % (47-70); Platelet Count 369 K/mm3 (150-450); RBC Distribution Width CV 14.4 % (11.6-14.6); RBC Distribution Width SD 44.4 fl (35.1-43.9); Red Blood Count 4.13 M/mm3 (4.2-5.4); White Blood Count 8.3 K/mm3 (4.4-11.0)
[2023-11-14 10:47] LABS: Vitamin D,25 Hydroxy 31.1 ng/mL
[2023-11-14 10:54] LABS: ALB/GLOB Ratio 0.9 RATIO (0.9-2.4); AST(SGOT) 22 U/L (15-37); Alanine Aminotransfer ALT/SGPT 30 U/L (13-56); Albumin, Serum 3.5 g/dL (3.2-5.0); Alkaline Phosphatase 94 U/L (45-117); Anion Gap 6 (5-15); BUN 14 mg/dL (7-18); BUN/Creat Ratio 17.9 RATIO (10-20); Calcium,Total 9.7 mg/dL (8.5-10.1); Chloride 107 mmol/L (98-107); Creatinine, Serum 0.78 mg/dL (0.55-1.02); EST Glomerular Filtration Rate 77 mL/min (>60); Est Glom Filt Rate - Afr Amer 93 mL/min (>60); Globulin 3.8 g/dL (2.2-4.2); Glucose 116 mg/dL (74-106); Potassium 3.8 mmol/L (3.5-5.1); Protein, Total 7.3 g/dL (6.4-8.2); Sodium Level 139 mmol/L (136-145); Thyroid Stim Hormone (TSH) 1.52 uIU/mL (0.358-3.74)
== END | disposition home or self-care (01) ==
LOC: POLAB3 09:17
PROVIDERS: PCP Family Medicine Geriatric Medicine; Visit Provider Family Medicine Geriatric Medicine
DX: I10 Essential (primary) hypertension (principal); E11.65 Type 2 diabetes mellitus with hyperglycemia; E55.9 Vitamin D deficiency, unspecified
CPT/HCPCS: 36415; 80053; 82306; 84443; 85025

== ENCOUNTER → 2024-05-12 | Outpatient (CLI) | payer OTHER, SELFPAY ==
[2024-05-12 10:33] LABS: Absolute Lymphocyte Count 1.47 X10^3/uL (0.83-4.51); Absolute Neutrophil Count 5.8 X10^3/uL (2.0-7.7); Basophil# 0.04 X10^3/uL; Basophil% 0.5 % (0-1); Eosinophil# 0.29 X10^3/uL; Eosinophils% 3.5 % (0-5); Hemoglobin 11.4 g/dL (12.0-15.0); Lymphocyte # 1.47 X10^3/ul (0.83-4.51); Lymphocyte % 17.5 % (19-41); Mean Corp Hgb Conc 30.8 g/dL (32-36); Mean Corpuscular Hgb 26.5 pg (27.0-32.0); Mean Corpuscular Volume 85.8 fL (81-99); Mean Platelet Vol. 9.5 fl (6.2-12.0); Monocyte# 0.75 X10^3/uL; Monocyte% 8.9 % (0-10); NRBC Flagged by Analyzer 0 % (0-5); Neutrophil # 5.81 X10^3/uL (2.7-7.7); Neutrophil % 69.4 % (47-70); Platelet Count 361 K/mm3 (150-450); RBC Distribution Width CV 14.2 % (11.6-14.6); RBC Distribution Width SD 44.6 fl (35.1-43.9); Red Blood Count 4.31 M/mm3 (4.2-5.4); White Blood Count 8.4 K/mm3 (4.4-11.0)
[2024-05-12 11:01] LABS: Vitamin D,25 Hydroxy 22.2 ng/mL
[2024-05-12 11:07] LABS: ALB/GLOB Ratio 0.9 RATIO (0.9-2.4); AST(SGOT) 18 U/L (15-37); Alanine Aminotransfer ALT/SGPT 22 U/L (13-56); Albumin, Serum 3.6 g/dL (3.2-5.0); Alkaline Phosphatase 93 U/L (45-117); Anion Gap 4 (5-15); BUN 15 mg/dL (7-18); Calcium,Total 10.4 mg/dL (8.5-10.1); Chloride 106 mmol/L (98-107); Creatinine, Serum 0.75 mg/dL (0.55-1.02); EST Glomerular Filtration Rate 80 mL/min (>60); Est Glom Filt Rate - Afr Amer 97 mL/min (>60); Globulin 3.9 g/dL (2.2-4.2); Glucose 119 mg/dL (74-106); Protein, Total 7.5 g/dL (6.4-8.2); Sodium Level 139 mmol/L (136-145)
== END | disposition home or self-care (01) ==
LOC: POLAB3 09:54
PROVIDERS: PCP Family Medicine Geriatric Medicine; Visit Provider Family Medicine Geriatric Medicine
DX: E11.65 Type 2 diabetes mellitus with hyperglycemia (principal); I10 Essential (primary) hypertension; E55.9 Vitamin D deficiency, unspecified
CPT/HCPCS: 36415; 80053; 82306; 84443; 85025

== ENCOUNTER → 2024-05-17 | Outpatient (CLI) | payer MEDICARE, SELFPAY ==
--- NOTE | 2024-05-17 16:57 | RAD_ITS ---
INDICATION: COMPRESSION FRACTURE EXAMINATION/TECHNIQUE: X-RAY - XR Spine Thoracic 2 Views COMPARISON: April 10, 2022 FINDINGS: VERTEBRAE: 12 rib-bearing thoracic type vertebra with normal morphology. Minimal chronic anterior vertebral height loss in the mid thoracic spine with mildly exaggerated kyphosis. . No spondylolisthesis. Mild diffuse endplate osteophyte formation with some anterior bridging osteophytes. Preservation of the normal thoracic kyphosis. No significant facet arthropathy. DISCS: Disc spaces are maintained. INCLUDED CHEST/ABDOMEN: Air-filled hiatal hernia.. RAD/Thoracic Spine 2 Views IMPRESSION: No evidence of acute thoracic spinal fracture or spondylolisthesis. Mild spondylosis. Electronically Signed: Greg Lindquist MD at 3:21 EDT ,
== END | disposition home or self-care (01) ==
PROVIDERS: PCP Family Medicine Geriatric Medicine; Referring Provider Anesthesiology Pain Medicine; Visit Provider Anesthesiology Pain Medicine
DX: M48.50XA Collapsed vertebra, not elsewhere classified, site unspecified, initial encounter for fracture (principal)
CPT/HCPCS: 72070

== ENCOUNTER → 2024-06-26 | Outpatient (CLI) | payer MEDICARE, SELFPAY | END | disposition home or self-care (01) | LOC: MRI 07:12 | PROVIDERS: PCP Family Medicine Geriatric Medicine; Referring Provider Anesthesiology Pain Medicine; Visit Provider Anesthesiology Pain Medicine | DX: M54.14 Radiculopathy, thoracic region (principal) | CPT/HCPCS: 72146 ==

== ENCOUNTER 2024-08-10 07:40 | Outpatient (CLI) | payer MEDICARE, SELFPAY | END 2024-08-10 23:59 | disposition home or self-care (01) | LOC: PSN 07:41 | PROVIDERS: PCP Family Medicine Geriatric Medicine; Referring Provider Family Medicine Geriatric Medicine; Visit Provider Family Medicine Geriatric Medicine | DX: R68.83 Chills (without fever) (principal) | CPT/HCPCS: 87631 ==

== ENCOUNTER → 2024-10-25 | Outpatient (CLI) | payer BC, SELFPAY | END | disposition home or self-care (01) | LOC: POLAB3 16:37 | PROVIDERS: PCP Family Medicine Geriatric Medicine; Visit Provider Family Medicine Geriatric Medicine | DX: R68.83 Chills (without fever) (principal) | CPT/HCPCS: 87631 ==

== ENCOUNTER → 2024-11-15 | Outpatient (CLI) | payer BC, SELFPAY ==
[2024-11-15 11:30] LABS: Absolute Lymphocyte Count 1.76 X10^3/uL (0.83-4.51); Absolute Neutrophil Count 6.4 X10^3/uL (2.0-7.7); Basophil# 0.03 X10^3/uL; Basophil% 0.3 % (0-1); Eosinophil# 0.24 X10^3/uL; Eosinophils% 2.6 % (0-5); Lymphocyte # 1.76 X10^3/ul (0.83-4.51); Lymphocyte % 19.3 % (19-41); Mean Corp Hgb Conc 31.6 g/dL (32-36); Mean Corpuscular Hgb 27.3 pg (27.0-32.0); Mean Corpuscular Volume 86.4 fL (81-99); Mean Platelet Vol. 10.4 fl (6.2-12.0); Monocyte# 0.64 X10^3/uL; NRBC Flagged by Analyzer 0 % (0-5); Neutrophil # 6.38 X10^3/uL (2.7-7.7); Neutrophil % 70.3 % (47-70); Platelet Count 287 K/mm3 (150-450); RBC Distribution Width CV 14.6 % (11.6-14.6); RBC Distribution Width SD 46.3 fl (35.1-43.9); White Blood Count 9.1 K/mm3 (4.4-11.0)
[2024-11-15 12:43] LABS: Vitamin D,25 Hydroxy 15.9 ng/mL (30-100)
[2024-11-15 12:53] LABS: ALB/GLOB Ratio 1.3 RATIO (0.9-2.4); AST(SGOT) 22 U/L (<=31); Alanine Aminotransfer ALT/SGPT 20 U/L (<=34); Albumin, Serum 4.1 g/dL (3.4-4.8); Alkaline Phosphatase 110 U/L (35-104); Anion Gap 14 (5-15); BUN 17 mg/dL (4-19); BUN/Creat Ratio 24.6 RATIO (10-20); Carbon Dioxide 22.9 mmol/L (21.0-32.0); Chloride 104 mmol/L (98-108); Creatinine, Serum 0.69 mg/dL (0.70-1.20); EST Glomerular Filtration Rate 91 (>60); Globulin 3.2 g/dL (2.2-4.2); Glucose 125 mg/dL (70-99); Protein, Total 7.3 g/dL (5.9-8.4); Sodium Level 141 mmol/L (133-145); Total Bilirubin 0.46 mg/dL (0.00-1.30)
== END | disposition home or self-care (01) ==
LOC: LAB 10:32
PROVIDERS: PCP Family Medicine Geriatric Medicine; Referring Provider Family Medicine Geriatric Medicine; Visit Provider Family Medicine Geriatric Medicine
DX: E11.65 Type 2 diabetes mellitus with hyperglycemia (principal); I10 Essential (primary) hypertension; E55.9 Vitamin D deficiency, unspecified
CPT/HCPCS: 36415; 80053; 82306; 84443; 85025

== ENCOUNTER → 2025-04-27 | Outpatient (CLI) | payer BC, SELFPAY ==
[2025-04-27 09:42] LABS: Hematocrit 37.0 % (37-47); Hemoglobin 11.7 g/dL (12.0-15.0); Immature Granulocytes Count 0.040 X10^3/uL (0.0-0.0); Mean Corp Hgb Conc 31.6 g/dL (32-36); Mean Corpuscular Volume 84.5 fL (81-99); Mean Platelet Vol. 9.8 fl (6.2-12.0); NRBC Flagged by Analyzer 0 % (0-5); Platelet Count 354 K/mm3 (150-450); RBC Distribution Width CV 14.6 % (11.6-14.6); RBC Distribution Width SD 45.1 fl (35.1-43.9); Red Blood Count 4.38 M/mm3 (4.2-5.4); White Blood Count 9.7 K/mm3 (4.4-11.0)
--- OUTSIDE RECORDS SUMMARY | 2025-04-27 10:18 | XMS RPT_ITS | CCD ---
Author Organization [facility] Care Team Providers Care Application Project Leader Name Role Phone Dr. Nic Kern Chi Primary Care Provider [phone] Erlin, Dr. Nic Webb Referring Provider Dr. Wan Flores Attending Provider [phone] Marco Antonio Wiggins Attending Provider [phone] Erlin, Dr. Nic Webb Primary Care Provider Erlin, Dr. Nic Webb Referring Provider Jamila ACCOUNTING/FINANCE TUTOR, ACCOUNTING/FINANCE TUTOR-Rianna Farris Attending Provider Erlin CARR, Lydia Primary Care Provider [phone] GWENDOLYN TORREZ Attending Unavailable Erlin CARR, Dr. Nic Webb Primary Care Provider Erlin CARR, Dr. Nic Webb Attending Provider [phone] Dr. Nic Kern MD, Chi Referring Provider Erlin, Nic Chi Primary Care Unavailable Erlin, Nic Chi Attending Unavailable Erlin, Nic Chi Primary Care Unavailable Basali, Ayman Attending Unavailable Basali, Ayman Referring Unavailable Erlin, Nic Chi Primary Care Unavailable Basali, Ayman Attending Unavailable Basali, Ayman Referring Unavailable Erlin, Nic Chi Primary Care Unavailable Erlin, Nic Chi Attending Unavailable Erlin, Nic Chi Referring Unavailable Erlin, Nic Chi Attending Unavailable Erlin, Nic Chi Referring Unavailable Erlin, Nic Chi Primary Care Unavailable Erlin, Nic Chi Attending Unavailable Erlin, Nic Chi Primary Care Unavailable Erlin, Nic Chi Primary Care Unavailable Erlin, Nic Chi Attending Unavailable Medications Current Medications Medication Drug Class(es) Dates Sig (Normalized) Sig (Original) acetaminophen 500 mg oral tablet (16 sources) Start: 02-28-2021 take 2 tablets by mouth every six hours Acetaminophen 500 mg Tablet Active 1000 mg PO EVERY 6 HOURS 100 February 28, 2021 12:00am Start: 02-28-2021 take 1000 mg by mout h every six hours Acetaminophen Active 1000 MG PO EVERY 6 HOURS 100 February 28, 2021 12:00am Start: 02-13-2021 End: 02-28-2021 take 2 tablets by mouth every six hours as needed Acetaminophen (Tylenol) 325 mg Tablet Discontinued 650 mg PO EVERY 6 HOURS as needed for prn February 13, 2021 12:00am February 28, 2021 8:15am ALPHA LIPOIC ACID-BIOTIN PO (4 sources) take 200 mg by mouth in the morning ALPHA LIPOIC ACID-BIOTIN PO Take 200 mg by mouth in the morning. Active ascorbic acid 500 mg oral tablet (8 sources) Vitamin C Start: 08-27-2016 take 2 tablets by mouth once daily Ascorbic Acid (Vitamin C) 500 MG tablet Active 1000 mg PO DAILY@799August 27, 2016 1:00am Start: 08-27-2016 take 1000 mg by mout h once daily Ascorbic Acid (Vitamin C) Active 1000 MG PO DAILY@799August 27, 2016 1:00am aspirin 81 mg delayed release oral tablet (8 sources) Platelet Aggregation Inhibitor, Nonsteroidal Anti-inflammatory Drug Start: 08-27-2016 take 1 tablet by mouth once daily Aspirin 81 MG tablet,delayed release (DR/EC) Active 81 mg PO DAILY August 27, 2016 1:00am atorvastatin 40 mg oral tablet (12 sources) HMG-CoA Reductase Inhibitor Start: 08-28-2016 take 1 tablet by mouth at bedtime Atorvastatin 40 MG tablet Active 40 mg PO AT BEDTIME August 28, 2016 1:00am Zlnowix-Gsdfngugdp-Bzcc min D (CITRACAL +D3 PO) (4 sources) take 2 tablets by mouth once in the morning Calcium-Phosphorus -Vitamin D (CITRACAL +D3 PO) Take 2 tablets by mouth in the morning. Active cholecalciferol 0.025 mg oral capsule (4 sources) Vitamin D take 1 capsule by mouth in the morning cholecalciferol (Vitamin D-3) 25 MCG (1000 UT) capsule Take 1,000 Units by mouth in the morning. Active famotidine 40 mg oral tablet (12 sources) Histamine-2 Receptor Antagonist Start: 08-27-2016 take 1 tablet by mouth once daily Famotidine 40 MG tablet Active 40 mg PO DAILY August 27, 2016 1:00am hydroCHLOROthiazide 12.5 mg / losartan potassium 50 mg oral tablet (12 sources) Thiazide Diuretic, Angiotensin 2 Receptor Emanuel Start: 08-27-2016 Losartan-Hydrochlo rothiazide 1 TAB tablet Active 1 {tbl} PO DAILY August 27, 2016 1:00am Start: 08-27-2016 take 1 tablet by pavan th once daily Losartan-Hydrochlorothiazide Active 1 TA BLET PO DAILY August 27, 2016 1:00am take 1 tablet by pavan th in the morning losartan-hydroCHLOROthiazide (Hyzaar) 50-12.5 MG tablet Take 1 tablet by mouth in the morning. Active levothyroxine sodium 0.05 mg oral tablet (12 sources) l-Thyroxine Start: 08-27-2016 take 1 tablet by mouth once daily Levothyroxine 50 MCG tablet Active 50 ug PO DAILY August 27, 2016 1:00am metFORMIN hydrochloride 500 mg oral tablet (12 sources) Biguanide Start: 08-27-2016 take 2 tablets by mouth twice daily at mealtime Metformin 500 MG tablet Active 1000 mg PO TWICE DAILY WITH MEALS August 27, 2016 1:00am Start: 08-27-2016 take 1000 mg by mout h twice daily at mealtime Metformin Active 1000 MG PO TWICE DAILY WITH MEALS August 27, 2016 1:00am take 1 tablet by pavan th every twelve hours metFORMIN (Glucophage) 1000 MG tablet Take 1,000 mg by mouth every 12 (twelve) hours. Active pioglitazone 30 mg oral tablet (12 sources) Peroxisome Proliferator Receptor alpha Agonist, Peroxisome Proliferator Receptor gamma Agonist, Thiazolidinedione Start: 09-25-2020 take 1 tablet by mouth once daily Pioglitazone 30 mg tablet Active 30 mg PO DAILY September 25, 2020 1:00am polyethylene glycol 3350 13147 mg powder for oral solution (4 sources) Osmotic Laxative polyethylene glycol, PEG, 3350 (MiraLax) 17 g packet Take by mouth. Active polysaccharide iron complex 150 mg oral capsule (9 sources) Start: 05-29-2022 Polysaccharide Iron Complex (Ferrex 150) 150 mg iron capsule Active 150 mg PO DAILY May 29, 2022 12:00am microencapsulated potassium chloride 10 meq extended release oral tablet (12 sources) Start: 09-25-2020 take 1 tablet by mouth once daily Potassium Chloride 10 mEq tablet,ER particles/crystals Active 10 meq PO DAILY September 25, 2020 1:00am saccharomyces boulardii 250 mg oral capsule (4 sources) take 1 capsule by mouth in the morning saccharomyces boulardii (Florastor) 250 MG capsule Take 250 mg by mouth in the morning and 250 mg before bedtime. Active Completed/Discontinued Medications Medication Drug Class(es) Dates Sig (Normalized) Sig (Original) apixaban 2.5 mg oral tablet (16 sources) Factor Xa Inhibitor Start: 02-28-2021 End: 04-09-2021 take 1 tablet by mouth twice daily Apixaban (Eliquis) 2.5 mg Tablet Discontinued 2.5 mg PO TWICE A DAY February 28, 2021 12:00am April 09, 2021 9:58am Start: 12-20-2020 End: 01-29-2021 take 1 tablet by mouth twice daily Apixaban (Eliquis) 2.5 mg Tablet Discontinued 2.5 mg PO TWICE A DAY December 20, 2020 12:00am January 29, 2021 9:45am clopidogrel 75 mg oral tablet (8 sources) P2Y12 Platelet Inhibitor Start: 08-27-2016 End: 09-25-2020 take 1 tablet by mouth once daily Clopidogrel 75 MG tablet Discontinued 75 mg PO DAILY August 27, 2016 1:00am September 25, 2020 2:50pm gabapentin 100 mg oral capsule (8 sources) Anti-epileptic Agent Start: 08-27-2016 End: 09-25-2020 take 1 capsule by mouth twice daily at mealtime Gabapentin 100 MG capsule Discontinued 100 mg PO TWICE DAILY WITH MEALS August 27, 2016 1:00am September 25, 2020 2:54pm Mzdzntwyi-G2-Jva44 -Algal Oil (6 sources) Start: 12-05-2020 End: 05-29-2022 Hcdfeyizt-Y2-Aib87- Algal Oil Discontinued 1 EACH PO TWICE A DAY December 05, 2020 12:00am May 29, 2022 2:05pm Start: 12-05-2020 End: 05-29-2022 Hcawgsgqm-X4-Xld73-Algal Oil Discontinued 1 EACH PO TWICE A DAY December 04, 2020 11:00pm May 29, 2022 1:05pm Start: 12-05-2020 Gkfnsudja-V6-K mp74-Zekaz Oil Active 1 EACH PO TWICE A DAY December 05, 2020 12:00am Rvegnuzem-C6-Zui77-Algal Oil 1 EACH capsule (2 sources) Start: 12-05-2020 End: 05-29-2022 Ylhuqplrr-L2-Tya48-Algal Oil 1 EACH capsule Discontinued 1 NMA PO TWICE A DAY December 05, 2020 12:00am May 29, 2022 2:05pm oxyCODONE hydrochloride 5 mg oral tablet (20 sources) Opioid Agonist Start: 02-28-2021 End: 04-09-2021 take 5-10 mg by mouth every four hours as needed for pain Oxycodone 5 mg tablet Discontinued 5 - 10 mg PO EVERY 4 HOURS NEEDED as needed for Pain Score 4-10 60 7 March 12, 2021 April 09, 2021 9:58am Start: 01-29-2021 End: 02-05-2021 take 1 capsule by mouth every six hours as needed for pain Oxycodone 5 mg capsule Discontinued 5 mg PO EVERY 6 HOURS as needed for pain 30 7 January 29, 2021 February 04, 2021 12:00am February 05, 2021 12:01am Start: 12-20-2020 End: 01-29-2021 take 5-10 mg by mouth every four hours as needed for pain Oxycodone 5 mg Tablet Discontinued 5 - 10 mg PO EVERY 4 HOURS NEEDED as needed for Pain Score 4-10 60 7 December 20, 2020 January 29, 2021 9:46am Turmeric extract (8 sources) Start: 09-25-2020 End: 12-20-2020 take 1 capsule by mouth once daily Turmeric 400 mg capsule Discontinued 400 mg PO DAILY September 25, 2020 1:00am December 20, 2020 8:12am Start: 09-25-2020 End: 12-20-2020 take 400 mg by mouth once daily Turmeric Discontinued 400 MG PO DAILY September 25, 2020 12:00am December 20, 2020 7:12am Start: 09-25-2020 End: 12-20-2020 take 400 mg by mouth once daily Turmeric Discontinued 400 MG PO DAILY September 25, 2020 1:00am December 20, 2020 8:12am vitamin b12 5 mg oral capsule (8 sources) Vitamin B12 Start: 12-05-2020 End: 05-29-2022 take 1 capsule by mouth once daily Cyanocobalamin (Vitamin B-12) 5,000 MCG capsule Discontinued 5000 ug PO DAILY December 05, 2020 12:00am May 29, 2022 1:41pm Problems Active Problems Problem Classification Problem Date Documented Date Episodic/Chronic Deficiency and other anemia (8 sources) Iron-refractory iron deficiency anemia; Translations: [Other iron deficiency anemias] 12-04-2021 Episodic Comment on above: Got IV iron infusion with correction of iron profile. Deficiency and other anemia (8 sources) Iron deficiency anemia; Translations: [Iron deficiency anemia, unspecified] 05-29-2022 Episodic Diabetes mellitus with complications (1 source) Type 2 diabetes mellitus with hyperglycemia; Translations: [Type 2 diabetes mellitus with hyperglycemia] Onset: 11-18-2024 Chronic Osteoarthritis (8 sources) Osteoarthritis of left knee joint; Translations: [Unilateral primary osteoarthritis, left knee] 01-29-2021 Chronic Other aftercare (16 sources) Follow-up status; Translations: [Encounter for other orthopedic aftercare] 01-01-2021 Episodic Other connective tissue disease (8 sources) Artificial knee joint present; Translations: [Presence of unspecified artificial knee joint] 02-28-2021 Chronic Other connective tissue disease (20 sources) History of total knee arthroplasty; Translations: [Presence of right artificial knee joint] 01-29-2021 Chronic Other connective tissue disease (2 sources) Presence of left artificial knee joint; Translations: [Knee joint replacement] Chronic Other connective tissue disease (2 sources) Presence of right artificial knee joint; Translations: [Knee joint replacement] Chronic Other lower respiratory disease (8 sources) Hypoxemia; Translations: [Hypoxemia] 07-17-2021 Episodic Other nervous system disorders (16 sources) Acute postoperative pain; Translations: [Other acute postprocedural pain] 12-20-2020 Episodic Other non-traumatic joint disorders (8 sources) Pain in left knee; Translations: [Left knee pain] 02-15-2021 Episodic Other screening for suspected conditions (not mental disorders or infectious disease) (9 sources) Other specified abnormal findings of blood chemistry; Translations: [High serum vitamin B12] 12-04-2021 Episodic Residual codes; unclassified (6 sources) Obstructive sleep apnea syndrome; Translations: [Obstructive sleep apnea (adult) (pediatric)] Onset: 07-17-2023 07-17-2023 Chronic Residual codes; unclassified (1 source) Chills (without fever); Translations: [Chills (without fever)] Onset: 11-02-2024 Episodic Viral infection (8 sources) COVID-19; Translations: [Pneumonia due to COVID-19 virus] 07-17-2021 Episodic Past or Other Problems Problem Classification Problem Date Documented Da te Episodic/Chronic Deficiency and other anemia (2 sources) Iron deficiency anemia, unspecified; Translations: [Iron deficiency anemia, unspecified] Onset: 11-17-2023 05-29-2022 Episodic Other fractures (1 source) Collapsed vertebra, not elsewhere classified, site unspecified, initial encounter for fracture; Translations: [Collapsed vertebra, not elsewhere classified, site unspecified, initial encounter for fracture] Onset: 06-17-2024 Episodic Spondylosis; intervertebral disc disorders; other back problems (1 source) Radiculopathy, thoracic region; Translations: [Radiculopathy, thoracic region] Onset: 07-19-2024 Episodic Results Test Name Value Interpretation Reference Range Facility Absolute neutrophil countOrd ered By: Nic Kern on 11-15-2024 Neutrophils (Bld) [#/Vol] 6.4 10*3/uL 2.0-7.7 [facility] Anion gap in Serum or Plasma Ordered By: Nic Kern on 11-15-2024 Anion gap [Moles/Vol] 14 mmol/L 5-15 [facility] BUN/creatinine ratioOrdered By: Nic Kern on 11-15-2024 Urea nitrogen/Creatinine [Mass ratio] 24.6 mg/mg High 10-20 [facility] Basophil percentageOrdered B y: Nic Kern on 11-15-2024 Basophils/100 WBC (Bld) 0.3 % 0-[address] [facility] Bilirubin, totalOrdered By: Nic Kern on 11-15-2024 Bilirubin [Mass/Vol] 0.46 mg/dL 0.00-1.30 [facility] CBC W/Diff, Automatedon 10-18 Absolute Lymph 1.76 X10 3/uL Normal 0.83-4.51 [facility] Comment on above: Performed By: #### L 500.4050, L501.9520, L506.1001, L100.0100 #### [facility] [address] [place], [address] Absolute Neut 6.4 X10 3/uL Normal 2.0-7.7 [facility] Comment on above: Performed By: #### L 500.4050, L501.9520, L506.1001, L100.0100 #### [facility] [address] [place], [address] Basophils/100 WBC (Bld) 0.3 % Normal 0-[address] [facility] Comment on above: Performed By: #### L 500.4050, L501.9520, L506.1001, L100.0100 #### [facility] [address] [place], [address] Eosinophils/100 WBC (Bld) 2.6 % Normal 0-5 [facility] Comment on above: Performed By: #### L 500.4050, L501.9520, L506.1001, L100.0100 #### [facility] [address] [place], [address] Erythrocyte distribution width (RBC) [Ratio] 14.6 % Normal 11.6-14.6 [facility] Comment on above: Performed By: #### L 500.4050, L501.9520, L506.1001, L100.0100 #### [facility] [address] [place], [address] Hematocrit (Bld) [Volume fraction] 38.0 % Normal 37-47 [facility] Comment on above: Performed By: #### L 500.4050, L501.9520, L506.1001, L100.0100 #### [facility] [address] [place], [address] Hemoglobin (Bld) [Mass/Vol] 12.0 g/dL Normal 12.0-15.0 [facility] Comment on above: Performed By: #### L 500.4050, L501.9520, L506.1001, L100.0100 #### [facility] [address] [place], [address] IG% 0.500 Normal 0.0-0.9 [facility] Comment on above: Result Comment: IG% - Immature Granulocytes (promyelocytes, myelocytes and metamyelocytes) > 1% indicates that a LEFT SHIFT is Present. Performed By: #### L 500.4050, L501.9520, L506.1001, L100.0100 #### [facility] [address] [place], [address] Lymphocytes/100 WBC (Bld) 19.3 % Normal 19-41 [facility] Comment on above: Performed By: #### L 500.4050, [id number], L506.1001, L100.0100 #### [facility] [address] [place], [address] MCH (RBC) [Entitic mass] 27.3 pg Normal 27.0-32.0 [facility] Comment on above: Performed By: #### L 500.4050, [id number], L506.1001, L100.0100 #### [facility] [address] [place], [address] MCHC (RBC) [Mass/Vol] 31.6 g/dL Low 32-36 [facility] Comment on above: Performed By: #### L 500.4050, [id number], L506.1001, L100.0100 #### [facility] [address] [place], [address] MCV (RBC) [Entitic vol] 86.4 fL Normal 81-[address] [facility] Comment on above: Performed By: #### L 500.4050, [id number], L506.1001, L100.0100 #### [facility] [address] [place], [address] Monocytes/100 WBC (Bld) 7.0 % Normal 0-[address] [facility] Comment on above: Performed By: #### L 500.4050, [id number], L506.1001, L100.0100 #### [facility] [address] [place], [address] Neutrophils/100 WBC (Bld) 70.3 % High 47-70 [facility] Comment on above: Performed By: #### L 500.4050, [id number], L506.1001, L100.0100 #### [facility] [address] [place], [address] Nucleated RBC (Bld) [#/Vol] 0 10*3/uL Normal 0-5 [facility] Comment on above: Performed By: #### L 500.4050, [id number], L506.1001, L100.0100 #### [facility] [address] [place], [address] Platelet mean volume (Bld) [Entitic vol] 10.4 fL Normal 6.2-12.0 [facility] Comment on above: Performed By: #### L 500.4050, [id number], L506.1001, L100.0100 #### [facility] [address] [place], [address] Platelets (Bld) [#/Vol] 287 10*3/uL Normal 150-450 [facility] Comment on above: Performed By: #### L 500.4050, [id number], L506.1001, L100.0100 #### [facility] [address] [place], [address] RBC (Bld) [#/Vol] 4.40 10*6/uL Normal 4.2-5.4 [facility] Comment on above: Performed By: #### L 500.4050, [id number], L506.1001, L100.0100 #### [facility] [address] [place], [address] RDW SD 46.3 fl High 35.1-43.9 [facility] Comment on above: Performed By: #### L 500.4050, [id number], L506.1001, L100.0100 #### [facility] [address] [place], [address] WBC (Bld) [#/Vol] 9.1 10*3/uL Normal 4.4-11.0 [facility] Comment on above: Performed By: #### L 500.4050, L501.9520, L506.1001, L100.0100 #### [facility] [address] [place], [address] Carbon dioxide, total [Moles /volume] in Central venous bloodOrdered By: Nic Kern on 11-15-2024 CO2 [Moles/Vol] 22.9 mmol/L 21.0-32.0 [facility] Chloride assayOrdered By: Pelon Kern on 11-15-2024 Chloride [Moles/Vol] 104 mmol/L 98-108 [facility] Comprehensive Metabolic Prof ilon 11-15-2024 Albumin [Mass/Vol] 4.1 g/dL Normal 3.4-4.8 [facility] Comment on above: Order Comment: TSH Performed By: #### L 500.4050, [id number], L506.1001, L100.0100 #### [facility] [address] [place], [address] Albumin/Globulin [Mass ratio] 1.3 {ratio} Normal 0.9-2.4 [facility] Comment on above: Order Comment: TSH Performed By: #### L 500.4050, [id number], L506.1001, L100.0100 #### [facility] [address] [place], [address] ALK PHOS 110 U/L High 35-104 [facility] Comment on above: Order Comment: TSH Performed By: #### L 500.4050, [id number], L506.1001, L100.0100 #### [facility] [address] [place], [address] ALT [Catalytic activity/Vol] 20 U/L Normal <=34 [facility] Comment on above: Order Comment: TSH Performed By: #### L 500.4050, [id number], L506.1001, L100.0100 #### [facility] [address] [place], [address] AST [Catalytic activity/Vol] 22 U/L Normal <=31 [facility] Comment on above: Order Comment: TSH Result Comment: Hemo lysis present, Results??could be affected. ?? Performed By: #### L 500.4050, [id number], L506.1001, L100.0100 #### [facility] [address] [place], [address] Bilirubin [Mass/Vol] 0.46 mg/dL Normal 0.00-1.30 [facility] Comment on above: Order Comment: TSH Performed By: #### L 500.4050, [id number], L506.1001, L100.0100 #### [facility] [address] [place], [address] BUN/CRE 24.6 RATIO High 10-20 [facility] Comment on above: Order Comment: TSH Performed By: #### L 500.4050, [id number], L506.1001, L100.0100 #### [facility] [address] [place], [address] Calcium [Mass/Vol] 11.0 mg/dL Normal 7.6-11.0 [facility] Comment on above: Order Comment: TSH Performed By: #### L 500.4050, [id number], L506.1001, L100.0100 #### [facility] [address] [place], [address] Chloride [Moles/Vol] 104 mmol/L Normal 98-108 [facility] Comment on above: Order Comment: TSH Performed By: #### L 500.4050, [id number], L506.1001, L100.0100 #### [facility] [address] [place], [address] CO2 [Moles/Vol] 22.9 mmol/L Normal 21.0-32.0 [facility] Comment on above: Order Comment: TSH Performed By: #### L 500.4050, [id number], L506.1001, L100.0100 #### [facility] [address] [place], [address] Creatinine [Mass/Vol] 0.69 mg/dL Low 0.70-1.20 [facility] Comment on above: Order Comment: TSH Performed By: #### L 500.4050, [id number], L506.1001, L100.0100 #### [facility] [address] [place], [address] GAP 14 Normal 5-15 [facility] Comment on above: Order Comment: TSH Performed By: #### L 500.4050, L501.9520, L506.1001, L100.0100 #### [facility] [address] [place], [address] GFR/1.73 sq M.predicted among non-blacks MDRD (S/P/Bld) [Vol rate/Area] 91 mL/min/{1.73_m2} Normal >60 [facility] Comment on above: Order Comment: TSH Result Comment: mL/m in/1.73m2 CKD-EPI Creatinine Equation (2020) Performed By: #### L 500.4050, L501.9520, L506.1001, L100.0100 #### [facility] [address] [place], [address] Globulin (S) [Mass/Vol] 3.2 g/dL Normal 2.2-4.2 [facility] Comment on above: Order Comment: TSH Performed By: #### L 500.4050, L501.9520, L506.1001, L100.0100 #### [facility] [address] [place], [address] Glucose [Mass/Vol] 125 mg/dL High 70-99 [facility] Comment on above: Order Comment: TSH Performed By: #### L 500.4050, [id number], L506.1001, L100.0100 #### [facility] [address] [place], [address] Potassium [Moles/Vol] 4.0 mmol/L Normal 3.3-5.1 [facility] Comment on above: Order Comment: TSH Result Comment: Hemo lysis present, Results??could be affected. ?? Performed By: #### L 500.4050, [id number], L506.1001, L100.0100 #### [facility] [address] [place], [address] Sodium [Moles/Vol] 141 mmol/L Normal 133-145 [facility] Comment on above: Order Comment: TSH Performed By: #### L 500.4050, L501.9520, L506.1001, L100.0100 #### [facility] [address] [place], [address] T PROT 7.3 g/dL Normal 5.9-8.4 [facility] Comment on above: Order Comment: TSH Performed By: #### L 500.4050, [id number], L506.1001, L100.0100 #### [facility] [address] [place], [address] Urea nitrogen [Mass/Vol] 17 mg/dL Normal 4-19 [facility] Comment on above: Order Comment: TSH Performed By: #### L 500.4050, L501.9520, L506.1001, L100.0100 #### [facility] [address] [place], [address] Eosinophil percentageOrdered By: Nic Kern on 11-15-2024 Eosinophils/100 WBC (Bld) 2.6 % 0-5 [facility] Erythrocyte distribution wid th (RBC) [Ratio]Ordered By: Nic Kern on 11-15-2024 Erythrocyte distribution width (RBC) [Entitic vol] 46.3 fL High 35.1-43.9 [facility] Erythrocyte distribution wid th ratioOrdered By: Nic Kern on 11-15-2024 Erythrocyte distribution width (RBC) [Ratio] 14.6 % 11.6-14.6 [facility] GFR/1.73 sq M.predicted mayuri g non-blacks MDRD (S/P/Bld) [Vol rate/Area]Ordered By: Nic Kern 11-15-2024 Estimated GFR (MDRD) Non-Af Amer 91 >60 [facility] Comment on above: mL/min/1.73m2 CKD-EP I Creatinine Equation (2020) Hematocrit Auto (Bld) [Volum e fraction]Ordered By: Nic Kern on 11-15-2024 Hematocrit (Bld) [Volume fraction] 38.0 % 37-47 [facility] Hemoglobin measurementOrdere d By: Nic Kern 11-15-2024 Hemoglobin (Bld) [Mass/Vol] 12.0 g/dL 12.0-15.0 [facility] Immature granulocytes/100 WB C Auto (Bld)Ordered By: Nic Kern 11-15-2024 Immature granulocytes/100 WBC (Bld) 0.500 % 0.0-0.9 [facility] Comment on above: IG% - Immature Granu locytes (promyelocytes, myelocytes and metamyelocytes) > 1% indicates that a LEFT SHIFT is Present. L506.1001on 11-15-2024 Vitamin D 25-OH 15.9 ng/mL Low 30-100 [facility] Comment on above: Result Comment: Rowan min D Status Deficiency: <20 ng/mL (50nmol/L) Insufficiency: 20-30 ng/mL (50-75 nmol/L) Sufficiency: 30-100 ng/mL (75-250 nmol/L) Toxicity: >100 ng/mL (>250 nmol/L) Performed By: #### L 500.4050, L501.9520, L506.1001, L100.0100 #### [facility] [address] [place], [address] Laboratory - Chemistry and C hemistry - challengeOrdered By: Nic Kern on 11-15-2024 AST [Catalytic activity/Vol] 22 U/L <32 [facility] Comment on above: Hemolysis present, R esults could be affected. Lymphocytes Auto (Unsp spec) [#/Vol]Ordered By: Nic Kern on 11-15-2024 Lymphocytes (Bld) [#/Vol] 1.76 10*3/uL 0.83-4.5 1 [facility] Lymphocytes/100 WBC Auto (Un sp spec)Ordered By: Nic Kern on 11-15-2024 Lymphocytes/100 WBC (Bld) 19.3 % 19-41 [facility] MCV (mean corpuscular volume ) determinationOrdered By: Nic Kern on 11-15-2024 MCV (RBC) [Entitic vol] 86.4 fL 81-[address] [facility] Mean corpuscular hemoglobin (MCH) determinationOrdered By: Nic Kern 11-15-2024 MCH (RBC) [Entitic mass] 27.3 pg 27.0-32.0 [facility] Mean corpuscular hemoglobin concentration (MCHC) determinationOrdered By: Nic Kern 11-15-2024 MCHC (RBC) [Mass/Vol] 31.6 g/dL Low 32-36 [facility] Mean platelet volume determi nationOrdered By: Nic Kern on 11-15-2024 Platelet mean volume (Bld) [Entitic vol] 10.4 fL 6.2-12.0 [facility] Monocyte percentageOrdered B y: Nic Kern on 11-15-2024 Monocytes/100 WBC (Bld) 7.0 % 0-[address] [facility] Neutrophil percentageOrdered By: Nic Kern on 11-15-2024 Neutrophils/100 WBC (Bld) 70.3 % High 47-70 [facility] Nucleated red blood cell per centageOrdered By: Nic Kern on 11-15-2024 Nucleated RBC/100 WBC (Bld) [Ratio] 0 % 0-5 [facility] Platelet countOrdered By: Pelon Kern on 11-15-2024 Platelets (Bld) [#/Vol] 287 10*3/uL 150-450 [facility] Potassium (Unsp spec) [Mass/ Vol]Ordered By: Nic Kern on 11-15-2024 Potassium [Moles/Vol] 4.0 mmol/L 3.3-5.1 [facility] Comment on above: Hemolysis present, R esults could be affected. RBC Auto (Bld) [#/Vol]Ordere d By: Nic Kern on 11-15-2024 RBC (Bld) [#/Vol] 4.40 10*6/uL 4.2-5.4 [facility] Serum creatinine measurement (mass/volume)Ordered By: Nic Kern on 11-15-2024 Creatinine [Mass/Vol] 0.69 mg/dL Low 0.70-1.20 [facility] Serum globulin measurementOr dered By: Nic Kern on 11-15-2024 Globulin (S) [Mass/Vol] 3.2 g/dL 2.2-4.[address] [facility] Serum glucose measurement (m ass/volume)Ordered By: Nic Kern on 11-15-2024 Glucose [Mass/Vol] 125 mg/dL High 70-99 [facility] Serum or plasma alanine schmidt otransferase (ALT) measurementOrdered By: Nic Kern 11-15-2024 ALT [Catalytic activity/Vol] 20 U/L <35 [facility] Serum or plasma albumin david urement (mass/volume)Ordered By: Nic Kern on 11-15-2024 Albumin [Mass/Vol] 4.1 g/dL 3.4-4.8 [facility] Serum or plasma albumin/glob ulin mass ratioOrdered By: Nic Kern on 11-15-2024 Albumin/Globulin [Mass ratio] 1.3 {ratio} 0.9-2.4 [facility] Serum or plasma alkaline jackie sphatase measurementOrdered By: Nic Kern on 11-15-2024 ALP [Catalytic activity/Vol] 110 U/L High 35-104 [facility] Serum or plasma calcium david urement (mass/volume)Ordered By: Nic Kern on 11-15-2024 Calcium [Mass/Vol] 11.0 mg/dL 7.6-11.0 [facility] Serum or plasma urea nitroge n measurement (mass/volume)Ordered By: Nic Kern 11-15-2024 Urea nitrogen [Mass/Vol] 17 mg/dL 4-19 [facility] Sodium levelOrdered By: Nic Kern on 11-15-2024 Sodium [Moles/Vol] 141 mmol/L 133-145 [facility] TSH DL <= 0.005 mIU/L QnOrde red By: Nic Kern on 11-15-2024 Thyroid Stimulating Hormone (TSH) 1.640 uIU/mL 0.300-4.200 [facility] Thyroid Stim Hormone (TSH)on 11-15-2024 TSH 1.640 uIU/mL Normal 0.300-4.200 [facility] Comment on above: Performed By: #### L 500.4050, L501.9520, L506.1001, L100.0100 #### [facility] [address] [place], [address] Total proteinOrdered By: Nic Kern on 11-15-2024 Protein [Mass/Vol] 7.3 g/dL 5.9-8.4 [facility] Vitamin D, 25-hydroxyOrdered By: Nic Kern on 11-15-2024 Vitamin D 25-Hydroxy 15.9 ng/mL Low 30-100 [facility] Comment on above: Vitamin D StatusDefi ciency: <20 ng/mL (50nmol/L)Insufficiency: 20-30 ng/mL (50-75 nmol/L)Sufficiency: 30-100 ng/mL (75-250 nmol/L)Toxicity: >100 ng/mL (>250 nmol/L) White blood cell (WBC) count Ordered By: Nic Kern on 11-15-2024 WBC (Bld) [#/Vol] 9.1 10*3/uL 4.4-11.0 [facility] Influenza virus A and B and SARS-CoV-2 (COVID-19) and Respiratory syncytial virus RNAOrdered By: Nic Kern on 10-25-2024 SARS-CoV-2 (COVID-19) RNA OSCAR+probe Ql (Unsp spec) [facility] M100.678on 10-25-2024 M100.678 Pending SARS-CoV-2 (COVID 19) Negative INFLUENZA A Negative INFLUENZA B Negative RSV PCR Negative Normal [facility] Comment on above: Performed By: #### L 500.4050, L501.9520, L506.1001, L100.0100 #### [facility] [address] [place], [address] Influenza virus A and B and SARS-CoV-2 (COVID-19) and Respiratory syncytial virus RNAOrdered By: Nic Kern on 08-10-2024 SARS-CoV-2 (COVID-19) RNA OSCAR+probe Ql (Unsp spec) [place] [id number] 08-10-2024 M100.678 Pending SARS-CoV-2 (COVID 19) Negative INFLUENZA A Negative INFLUENZA B Negative RSV PCR Negative Normal [facility] Comment on above: Performed By: #### M 100.678 #### [facility] [address] [place], [address] Spine Thoracic (Routine)on 08-26-2023 Spine Thoracic (Routine) [facility] Imaging Services [address] [facility] [place] [address] Spine Thoracic (Routine) MR#: [id number] Acct: [id number] Name: KAYLI QUINTANA Rep #: [id number] : 1950 F 73 From: Elaina santa MD PCP: Dr. Nic Kern MD Status: REG CLI Study: Spine Thoracic (Routine) Date of Exam: Exam# [id number] Ordering Dr: Mehdi Camara MD [id number] HISTORY: RADICULOPATHY, BACK PAIN, YRS. TECHNIQUE: Multiplanar and multisequence MR images of the thoracic spine were obtained without intravenous contrast. 156 images. COMPARISON: XR 07/09/2021, CTA 07/09/2021. FINDINGS: VERTEBRAE: Vertebral body heights maintained. Mild degenerative endplate changes. No significant bone marrow signal abnormality. ALIGNMENT: No significant anterior or posterior subluxation. CORD: Thoracic cord unremarkable in signal and morphology. Normal morphology and position of the conus medullaris at T12-L1. INTERVERTEBRAL DISCS: No significant posterior disc protrusion, central canal stenosis, or foraminal narrowing at C7-T1, T1-T2, T2-3, T3-4, or T4-5. Mild right paracentral disc protrusion at T5-6 without significant central canal stenosis or foraminal narrowing. No significant posterior disc protrusion, central canal stenosis, or foraminal narrowing at T6-7, T7-8, or T8-9. Mild left paracentral disc protrusions at T9-T10 and T10-T11 without significant central canal stenosis or foraminal narrowing. Mild disc bulge with facet arthropathy at T11-12 without significant central canal stenosis or foraminal narrowing. Minimal disc bulge at T12-L1 without significant central canal stenosis or foraminal narrowing. SOFT TISSUES: No paraspinal fluid collection. Mild lower posterior subcutaneous edema. MRI/Spine Thoracic (Routine) IMPRESSION: Mild multilevel degenerative disc disease without significant thoracic spinal canal stenosis. Electronically Signed: Elaina Parker MD at 12:28 EST Reading Location ID and State: [facility] / [place] Tel , Service support , CC: Dr. Mehdi Camara MD; Dr. 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 Nic Kern MD Status: REG CLI Study: Thoracic Spine 2 Views Date of Exam: 05/17/24 Exam# [id number] Ordering Dr: Mehdi Camara MD [id number] INDICATION: COMPRESSION FRACTURE EXAMINATION/TECHNI QUE: X-RAY - XR Spine Thoracic 2 Views COMPARISON: April 10, 2022 FINDINGS: VERTEBRAE: 12 rib-bearing thoracic type vertebra with normal morphology. Minimal chronic anterior vertebral height loss in the mid thoracic spine with mildly exaggerated kyphosis. . No spondylolisthesis. Mild diffuse endplate osteophyte formation with some anterior bridging osteophytes. Preservation of the normal thoracic kyphosis. No significant facet arthropathy. DISCS: Disc spaces are maintained. INCLUDED CHEST/ABDOMEN: Air-filled hiatal hernia.. RAD/Thoracic Spine 2 Views IMPRESSION: No evidence of acute thoracic spinal fracture or spondylolisthesis. Mild spondylosis. Electronically Signed: Greg Lindquist MD at 3:21 EDT , CC: Dr. Mehdi Camara MD; Dr. 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, [address] Absolute Neut 5.8 X10 3/uL Normal 2.0-7.7 [facility] Comment on above: Performed By: #### L 100.0100, L506.1000, L500.4050, L501.9520 #### [facility] [address] [place], [address] Basophils/100 WBC (Bld) 0.5 % Normal 0-[address] [facility] Comment on above: Performed By: #### L 100.0100, L506.1000, L500.4050, L501.9520 #### [facility] [address] [place], [address] Eosinophils/100 WBC (Bld) 3.5 % Normal 0-5 [facility] Comment on above: Performed By: #### L 100.0100, L506.1000, L500.4050, L501.9520 #### [facility] [address] [place], [address] Erythrocyte distribution width (RBC) [Ratio] 14.2 % Normal 11.6-14.6 [facility] Comment on above: Performed By: #### L 100.0100, L506.1000, L500.4050, L501.9520 #### [facility] [address] [place], [address] Hematocrit (Bld) [Volume fraction] 37.0 % Normal 37-47 [facility] Comment on above: Performed By: #### L 100.0100, L506.1000, L500.4050, L501.9520 #### [facility] [address] [place], [address] Hemoglobin (Bld) [Mass/Vol] 11.4 g/dL Low 12.0-15.0 [facility] Comment on above: Performed By: #### L 100.0100, L506.1000, L500.4050, L501.9520 #### [facility] [address] [place], [address] IG% 0.200 Normal 0.0-0.9 [facility] Comment on above: Result Comment: IG% - Immature Granulocytes (promyelocytes, myelocytes and metamyelocytes) > 1% indicates that a LEFT SHIFT is Present. Performed By: #### L 100.0100, L506.1000, L500.4050, L501.9520 #### [facility] [address] [place], [address] Lymphocytes/100 WBC (Bld) 17.5 % Low 19-41 [facility] Comment on above: Performed By: #### L 100.0100, L506.1000, L500.4050, L501.9520 #### [facility] [address] [place], [address] MCH (RBC) [Entitic mass] 26.5 pg Low 27.0-32.0 [facility] Comment on above: Performed By: #### L 100.0100, L506.1000, L500.4050, L501.9520 #### [facility] [address] [place], [address] MCHC (RBC) [Mass/Vol] 30.8 g/dL Low 32-36 [facility] Comment on above: Performed By: #### L 100.0100, L506.1000, L500.4050, L501.9520 #### [facility] [address] [place], [address] MCV (RBC) [Entitic vol] 85.8 fL Normal 81-[address] [facility] Comment on above: Performed By: #### L 100.0100, L506.1000, L500.4050, L501.9520 #### [facility] [address] [place], [address] Monocytes/100 WBC (Bld) 8.9 % Normal 0-[address] [facility] Comment on above: Performed By: #### L 100.0100, L506.1000, L500.4050, L501.9520 #### [facility] [address] [place], [address] Neutrophils/100 WBC (Bld) 69.4 % Normal 47-70 [facility] Comment on above: Performed By: #### L 100.0100, L506.1000, L500.4050, L501.9520 #### [facility] [address] [place], [address] Nucleated RBC (Bld) [#/Vol] 0 10*3/uL Normal 0-5 [facility] Comment on above: Performed By: #### L 100.0100, L506.1000, L500.4050, L501.9520 #### [facility] [address] [place], [address] Platelet mean volume (Bld) [Entitic vol] 9.5 fL Normal 6.2-12.0 [facility] Comment on above: Performed By: #### L 100.0100, L506.1000, L500.4050, L501.9520 #### [facility] [address] [place], [address] Platelets (Bld) [#/Vol] 361 10*3/uL Normal 150-450 [facility] Comment on above: Performed By: #### L 100.0100, L506.1000, L500.4050, L501.9520 #### [facility] [address] [place], [address] RBC (Bld) [#/Vol] 4.31 10*6/uL Normal 4.2-5.4 [facility] Comment on above: Performed By: #### L 100.0100, L506.1000, L500.4050, L501.9520 #### [facility] [address] [place], [address] RDW SD 44.6 fl High 35.1-43.9 [facility] Comment on above: Performed By: #### L 100.0100, L506.1000, L500.4050, L501.9520 #### [facility] [address] [place], [address] WBC (Bld) [#/Vol] 8.4 10*3/uL Normal 4.4-11.0 [facility] Comment on above: Performed By: #### L 100.0100, L506.1000, L500.4050, L501.9520 #### [facility] [address] [place], [address] Comprehensive Metabolic [facility] 05-12-2024 Albumin [Mass/Vol] 3.6 g/dL Normal 3.2-5.0 [facility] Comment on above: Performed By: #### L 100.0100, L506.1000, L500.4050, L501.9520 #### [facility] [address] [place], [address] Albumin/Globulin [Mass ratio] 0.9 {ratio} Normal 0.9-2.4 [facility] Comment on above: Performed By: #### L 100.0100, L506.1000, L500.4050, L501.9520 #### [facility] [address] [place], [address] ALK P 93 U/L Normal 45-117 [facility] Comment on above: Performed By: #### L 100.0100, L506.1000, L500.4050, L501.9520 #### [facility] [address] [place], [address] ALT [Catalytic activity/Vol] 22 U/L Normal 13-56 [facility] Comment on above: Performed By: #### L 100.0100, L506.1000, L500.4050, L501.9520 #### [facility] [address] [place], [address] AST [Catalytic activity/Vol] 18 U/L Normal 15-37 [facility] Comment on above: Performed By: #### L 100.0100, L506.1000, L500.4050, L501.9520 #### [facility] [address] [place], [address] Bilirubin [Mass/Vol] 0.60 mg/dL Normal 0.20-1.00 [facility] Comment on above: Result Comment: For patients on eltrombopag therapy, use of Dimension [place] TBIL is not recommended. Performed By: #### L 100.0100, L506.1000, L500.4050, L501.9520 #### [facility] [address] [place], [address] BUN/CRE 20.0 RATIO Normal 10-20 [facility] Comment on above: Performed By: #### L 100.0100, L506.1000, L500.4050, L501.9520 #### [facility] [address] [place], [address] CA,Total 10.4 mg/dL High 8.5-10.1 [facility] Comment on above: Performed By: #### L 100.0100, L506.1000, L500.4050, L501.9520 #### [facility] [address] [place], [address] Chloride [Moles/Vol] 106 mmol/L Normal 98-107 [facility] Comment on above: Performed By: #### L 100.0100, L506.1000, L500.4050, L501.9520 #### [facility] [address] [place], [address] CO2 [Moles/Vol] 30.0 mmol/L Normal 21.0-32.0 [facility] Comment on above: Performed By: #### L 100.0100, L506.1000, L500.4050, L501.9520 #### [facility] [address] [place], [address] Creatinine [Mass/Vol] 0.75 mg/dL Normal 0.55-1.02 [facility] Comment on above: Result Comment: The validity of the calculated GFR GFRAA in patients over 70 years has not been determined. Clinical correlation is essential. Performed By: #### L 100.0100, L506.1000, L500.4050, L501.9520 #### [facility] [address] [place], [address] EST GFR - AA 97 mL/min Normal >60 [facility] Comment on above: Result Comment: Afri can [place] GFR Calc Performed By: #### L 100.0100, L506.1000, L500.4050, L501.9520 #### [facility] [address] [place], [address] GAP 4 Low 5-15 [facility] Comment on above: Performed By: #### L 100.0100, L506.1000, L500.4050, L501.9520 #### [facility] [address] [place], [address] GFR/1.73 sq M.predicted among non-blacks MDRD (S/P/Bld) [Vol rate/Area] 80 mL/min/{1.73_m2} Normal >60 [facility] Comment on above: Result Comment: Non- GFR Calc Performed By: #### L 100.0100, L506.1000, L500.4050, L501.9520 #### [facility] [address] [place], [address] Globulin (S) [Mass/Vol] 3.9 g/dL Normal 2.2-4.2 [facility] Comment on above: Performed By: #### L 100.0100, L506.1000, L500.4050, L501.9520 #### [facility] [address] [place], [address] Glucose [Mass/Vol] 119 mg/dL High 74-106 [facility] Comment on above: Result Comment: Fast ing Glucose result from 100 to 125 mg/dL suggests IMPAIRED HOMEOSTASIS per A.D.A. criteria. Performed By: #### L 100.0100, L506.1000, L500.4050, L501.9520 #### [facility] [address] [place], [address] Potassium [Moles/Vol] 4.0 mmol/L Normal 3.5-5.1 [facility] Comment on above: Performed By: #### L 100.0100, L506.1000, L500.4050, L501.9520 #### [facility] [address] [place], [address] Sodium [Moles/Vol] 139 mmol/L Normal 136-145 [facility] Comment on above: Performed By: #### L 100.0100, L506.1000, L500.4050, L501.9520 #### [facility] [address] [place], [address] T PROT 7.5 g/dL Normal 6.4-8.2 [facility] Comment on above: Performed By: #### L 100.0100, L506.1000, L500.4050, L501.9520 #### [facility] [address] [place], [address] Urea nitrogen [Mass/Vol] 15 mg/dL Normal 7-18 [facility] Comment on above: Performed By: #### L 100.0100, L506.1000, L500.4050, L501.9520 #### [facility] [address] [place], [address] Thyroid Stim Hormone (TSH)on 05-12-2024 TSH 1.630 uIU/mL Normal 0.358-3.740 [facility] Comment on above: Performed By: #### L 100.0100, L506.1000, L500.4050, L501.9520 #### [facility] [address] [place], [address] Vitamin D,25 Hydroxyon 05-12 Vitamin D 25-OH 22.2 ng/mL Normal [facility] Comment on above: Result Comment: Rowan min D 25(OH) Status Range Deficiency <20 ng/mL (50nmol/L) Insufficiency 20 - 30 ng/mL (50 - 75 nmol/L) Sufficiency 30 - 100 ng/mL (75 - 250 nmol/L) Toxicity >100 ng/mL (>250 nmol/L) Performed By: #### L 100.0100, L506.1000, L500.4050, L501.9520 #### [facility] [address] [place], [place], [id number] Absolute lymphocyte countOrd ered By: Nic Kern on 11-14-2023 Lymphocytes Auto (Unsp spec) [#/Vol] 1.82 10*3/uL 0.83-4.51 [facility] Automated lymphocyte count a s percentage of total leukocytesOrdered By: Nic Kern on 11-14-2023 Lymphocytes/100 WBC Auto (Unsp spec) 21.8 % 19-41 [facility] Basophil percentageOrdered B y: Nic Kern on 11-14-2023 Basophils/100 WBC (Bld) 0.5 % 0-[address] [facility] Bilirubin [Mass/Vol] 0.60 mg/dL 0.20-1.00 [facility] Comment on above: For patients on eltr ombopag therapy, use of Dimension [place] TBIL is not recommended. Chloride [Moles/Vol] 107 mmol/L 98-107 [facility] Eosinophils/100 WBC (Bld) 4.0 % 0-5 [facility] Glucose [Mass/Vol] 116 mg/dL 74-106 [facility] Comment on above: Fasting Glucose resu lt from 100 to 125 mg/dL suggests IMPAIRED HOMEOSTASIS per A.D.A. criteria. Hemoglobin (Bld) [Mass/Vol] 10.8 g/dL 12.0-15.0 [facility] Monocytes/100 WBC (Bld) 8.0 % 0-[address] [facility] Neutrophils (Bld) [#/Vol] 5.5 10*3/uL 2.0-7.7 [facility] Neutrophils/100 WBC (Bld) 65.3 % 47-70 [facility] Potassium [Moles/Vol] 3.8 mmol/L 3.5-5.1 [facility] Protein [Mass/Vol] 7.3 g/dL 6.4-8.2 [facility] Sodium [Moles/Vol] 139 mmol/L 136-145 [facility] WBC (Bld) [#/Vol] 8.3 10*3/uL 4.4-11.0 [facility] Determination of erythrocyte mean corpuscular volume (MCV)Ordered By: Nic Kern on 11-14-2023 MCV (RBC) [Entitic vol] 85.7 fL 81-99 [facility] Erythrocyte distribution wid th ratioOrdered By: Nic Sagastumeok on 11-14-2023 Erythrocyte distribution width (RBC) [Ratio] 14.4 % 11.6-14.6 [facility] Erythrocyte distribution wid th standard deviationOrdered By: Nic Sagastumeok on 11-14-2023 Erythrocyte distribution width (RBC) [Entitic vol] 44.4 fL 35.1-43.9 [facility] Hematocrit Auto (Bld) [Volum e fraction]Ordered By: Nic Kern on 11-14-2023 Hematocrit (Bld) [Volume fraction] 35.4 % 37-47 [facility] Immature granulocytes/100 WB C Auto (Bld)Ordered By: Nic Kern on 11-14-2023 Immature granulocytes/100 WBC (Bld) 0.400 % 0.0-0.9 [facility] Comment on above: IG% - Immature Granu locytes (promyelocytes, myelocytes and metamyelocytes) > 1% indicates that a LEFT SHIFT is Present. Laboratory - Chemistry and C hemistry - challengeOrdered By: Nic Kern on 11-14-2023 Albumin/Globulin [Mass ratio] 0.9 {ratio} 0.9-2.4 [facility] ALP [Catalytic activity/Vol] 94 U/L 45-117 [facility] ALT [Catalytic activity/Vol] 30 U/L 13-56 [facility] CO2 [Moles/Vol] 26.0 mmol/L 21.0-32.0 [facility] Globulin (S) [Mass/Vol] 3.8 g/dL 2.2-4.[address] [facility] Urea nitrogen/Creatinine [Mass ratio] 17.9 mg/mg 10-20 [facility] - Hematology and Cell countsOrdered By: Nic Kern on 11-14-2023 MCH (RBC) [Entitic mass] 26.2 pg 27.0-32.0 [facility] MCHC (RBC) [Mass/Vol] 30.5 g/dL 32-36 [facility] Nucleated RBC/100 WBC (Bld) [Ratio] 0 % 0-5 [facility] Platelet mean volume (Bld) [Entitic vol] 9.9 fL 6.2-12.0 [facility] Platelets (Bld) [#/Vol] 369 10*3/uL 150-450 [facility] No Panel InformationOrdered By: Nic Kern on 11-14-2023 Estimated GFR (MDRD) Amer 93 mL/min >60 [facility] Comment on above: GFR Calc Estimated GFR (MDRD) Non-Af Amer 77 mL/min >60 [facility] Comment on above: Non- GFR Calc Vitamin D 25-Hydroxy 31.1 ng/mL [facility] Comment on above: Vitamin D 25(OH) Sta tus Range Deficiency <20 ng/mL (50nmol/L) Insufficiency 20 - 30 ng/mL (50 - 75 nmol/L) Sufficiency 30 - 100 ng/mL (75 - 250 nmol/L) Toxicity >100 ng/mL (>250 nmol/L) RBC Auto (Bld) [#/Vol]Ordere d By: Nic Kern on 11-14-2023 RBC (Bld) [#/Vol] 4.13 10*6/uL 4.2-5.4 [facility] Serum or plasma calcium david urement (mass/volume)Ordered By: Nic Kern on 11-14-2023 Calcium [Mass/Vol] 9.7 mg/dL 8.5-10.1 [facility] Serum or plasma creatinine m easurement (mass/volume)Ordered By: Nic Kern on 11-14-2023 Creatinine [Mass/Vol] 0.78 mg/dL 0.55-1.02 [facility] Comment on above: The validity of the calculated GFR & GFRAA in patients over 70 years has not been determined. Clinical correlation is essential. Serum or plasma thyroid stim ulating hormone (TSH) measurement (units/volume)Ordered By: Nic Kern on 11-14-2023 TSH Qn 1.52 uIU/mL 0.358-3.74 [facility] Serum or plasma urea nitroge n measurement (mass/volume)Ordered By: Nic Kern on 11-14-2023 Urea nitrogen [Mass/Vol] 14 mg/dL 7-18 [facility] Thin prep Papanicolaou smear with manual screeningOrdered By: Nic Kern on 11-14-2023 Thin prep Papanicolaou smear with manual screening 3.5 g/dL 3.2-5.0 [facility] Thin prep Papanicolaou smear with manual screening 22 U/L 15-37 [facility] Thin prep Papanicolaou smear with manual screening 6 5-15 [facility] Absolute lymphocyte countOrd ered By: Nic Kern on 04-16-2023 Lymphocytes Auto (Unsp spec) [#/Vol] 1.63 10*3/uL 0.83-4.51 [facility] Basophil percentageOrdered B y: Nic Kern on 04-16-2023 Basophils/100 WBC (Bld) 0.7 % 0-[address] [facility] Bilirubin [Mass/Vol] 0.40 mg/dL 0.20-1.00 [facility] [place] Comment on above: For patients on eltr ombopag therapy, use of Dimension [place] TBIL is not recommended. Chloride [Moles/Vol] 109 mmol/L 98-107 [facility] Eosinophils/100 WBC (Bld) 6.0 % 0-5 [facility] Glucose [Mass/Vol] 127 mg/dL 74-106 [facility] Comment on above: Fasting Glucose resu lt greater than or equal to 126 mg/dL suggests DIABETES MELLITUS per A.D.A. criteria. Neutrophils (Bld) [#/Vol] 4.5 10*3/uL 2.0-7.7 [facility] Neutrophils/100 WBC (Bld) 61.8 % 47-70 [facility] Potassium [Moles/Vol] 4.7 mmol/L 3.5-5.1 [facility] Protein [Mass/Vol] 7.5 g/dL 6.4-8.2 [facility] Sodium [Moles/Vol] 143 mmol/L 136-145 [facility] WBC (Bld) [#/Vol] 7.3 10*3/uL 4.4-11.0 [facility] Blood erythrocytes count (nu mber/volume)Ordered By: Nic Kern on 04-16-2023 RBC (Bld) [#/Vol] 4.32 10*6/uL 4.2-5.4 [facility] Blood hemoglobin measurement (mass/volume)Ordered By: Nic Kern on 04-16-2023 Hemoglobin (Bld) [Mass/Vol] 12.0 g/dL 12.0-15.0 [facility] Blood lymphocytes/100 leukoc ytesOrdered By: Nic Kern on 04-16-2023 Lymphocytes/100 WBC (Bld) 22.3 % 19-41 [facility] Blood monocytes/100 leukocyt esOrdered By: Nic Kern on 04-16-2023 Monocytes/100 WBC (Bld) 8.8 % 0-10 [facility] Blood platelet mean volumeOr dered By: Nic Kern on 04-16-2023 Platelet mean volume (Bld) [Entitic vol] 10.1 fL 6.2-12.0 [facility] Determination of erythrocyte mean corpuscular volume (MCV)Ordered By: Nic Kern on 04-16-2023 MCV (RBC) [Entitic vol] 88.4 fL 81-[address] [facility] Hematocrit Auto (Bld) [Volum e fraction]Ordered By: Nic Erlin on 04-16-2023 Hematocrit (Bld) [Volume fraction] 38.2 % 37-47 [facility] - Chemistry and C hemistry - challengeOrdered By: Nic Kern on 04-16-2023 ALP [Catalytic activity/Vol] 109 U/L 45-117 [facility] ALT [Catalytic activity/Vol] 28 U/L 13-56 [facility] CO2 [Moles/Vol] 30.0 mmol/L 21.0-32.0 [facility] Globulin (S) [Mass/Vol] 3.8 g/dL 2.2-4.[address] [facility] Urea nitrogen/Creatinine [Mass ratio] 18.7 mg/mg 10-20 [facility] - Hematology and Cell countsOrdered By: Nic Erlin on 04-16-2023 Erythrocyte distribution width (RBC) [Entitic vol] 46.3 fL 35.1-43.9 [facility] Erythrocyte distribution width (RBC) [Ratio] 14.3 % 11.6-14.6 [facility] Immature granulocytes/100 WBC (Bld) 0.400 % 0.0-0.9 [facility] Comment on above: IG% - Immature Granu locytes (promyelocytes, myelocytes and metamyelocytes) > 1% indicates that a LEFT SHIFT is Present. MCH (RBC) [Entitic mass] 27.8 pg 27.0-32.0 [facility] Nucleated RBC/100 WBC (Bld) [Ratio] 0 % 0-5 [facility] MCHC Auto (RBC) [Mass/Vol]Or dered [facility] on 04-16-2023 MCHC (RBC) [Mass/Vol] 31.4 g/dL 32-36 [facility] No Panel InformationOrdered By: Nic Kern on 04-16-2023 Estimated GFR (MDRD) Amer 90 mL/min >60 [facility] Comment on above: GFR Calc Estimated GFR (MDRD) Non-Af Amer 75 mL/min >60 [facility] Comment on above: Non- GFR Calc Thyroid Stimulating Hormone (TSH) 1.61 uIU/mL 0.358-3.74 [facility] Vitamin D 25-Hydroxy 36.5 ng/mL [facility] Comment on above: Vitamin D 25(OH) Sta tus Range Deficiency <20 ng/mL (50nmol/L) Insufficiency 20 - 30 ng/mL (50 - 75 nmol/L) Sufficiency 30 - 100 ng/mL (75 - 250 nmol/L) Toxicity >100 ng/mL (>250 nmol/L) Platelets bldOrdered By: Nic Kern on 04-16-2023 Platelets (Bld) [#/Vol] 356 10*3/uL 150-450 [facility] Serum or plasma albumin david urement (mass/volume)Ordered By: Nic Kern on 04-16-2023 Albumin [Mass/Vol] 3.7 g/dL 3.2-5.0 [facility] Serum or plasma albumin/glob ulin mass ratioOrdered By: Nic Kern on 04-16-2023 Albumin/Globulin [Mass ratio] 1.0 {ratio} 0.9-2.4 [facility] Serum or plasma calcium david urement (mass/volume)Ordered By: Nic Kern on 04-16-2023 Calcium [Mass/Vol] 10.0 mg/dL 8.5-10.1 [facility] Serum or plasma creatinine m easurement (mass/volume)Ordered By: Nic Kern on 04-16-2023 Creatinine [Mass/Vol] 0.80 mg/dL 0.55-1.02 [facility] Comment on above: The validity of the calculated GFR & GFRAA in patients over 70 years has not been determined. Clinical correlation is essential. Serum or plasma urea nitroge n measurement (mass/volume)Ordered By: Nic Kern on 04-16-2023 Urea nitrogen [Mass/Vol] 15 mg/dL 7-18 [facility] Thin prep Papanicolaou smear with manual screeningOrdered By: Nic Kern on 04-16-2023 Thin prep Papanicolaou smear with manual screening 21 U/L 15-37 [facility] Thin prep Papanicolaou smear with manual screening 4 5-15 [facility] Absolute lymphocyte countOrd ered By: Nic Kern on 10-21-2022 Lymphocytes Auto (Unsp spec) [#/Vol] 1.53 10*3/uL 0.83-4.51 [facility] Basophil percentageOrdered B y: Nic Kern on 10-21-2022 Basophils/100 WBC (Bld) 0.5 % 0-[address] [facility] Bilirubin [Mass/Vol] 0.50 mg/dL 0.20-1.00 [facility] Comment on above: For patients on eltr ombopag therapy, use of Dimension [place] TBIL is not recommended. Chloride [Moles/Vol] 104 mmol/L 98-107 [facility] Eosinophils/100 WBC (Bld) 2.6 % 0-5 [facility] Glucose [Mass/Vol] 116 mg/dL 74-106 [facility] Comment on above: Fasting Glucose resu lt from 100 to 125 mg/dL suggests IMPAIRED HOMEOSTASIS per A.D.A. criteria. Neutrophils (Bld) [#/Vol] 5.8 10*3/uL 2.0-7.7 [facility] Neutrophils/100 WBC (Bld) 69.3 % 47-70 [facility] Potassium [Moles/Vol] 3.9 mmol/L 3.5-5.1 [facility] Protein [Mass/Vol] 7.7 g/dL 6.4-8.2 [facility] Sodium [Moles/Vol] 138 mmol/L 136-145 [facility] WBC (Bld) [#/Vol] 8.4 10*3/uL 4.4-11.0 [facility] Blood erythrocytes count (nu mber/volume)Ordered By: Nic Kern on 10-21-2022 RBC (Bld) [#/Vol] 4.29 10*6/uL 4.2-5.4 [facility] Blood hemoglobin measurement (mass/volume)Ordered By: Nic Kern on 10-21-2022 Hemoglobin (Bld) [Mass/Vol] 12.1 g/dL 12.0-15.0 [facility] Blood lymphocytes/100 leukoc ytesOrdered By: Nic Kern on 10-21-2022 Lymphocytes/100 WBC (Bld) 18.2 % 19-41 [facility] Blood monocytes/100 leukocyt esOrdered By: Nic Kern on 10-21-2022 Monocytes/100 WBC (Bld) 8.9 % 0-[address] [facility] Blood platelet mean volumeOr dered By: Nic Kern on 10-21-2022 Platelet mean volume (Bld) [Entitic vol] 10.1 fL 6.2-12.0 [facility] Determination of erythrocyte mean corpuscular volume (MCV)Ordered By: Nic Kern on 10-21-2022 MCV (RBC) [Entitic vol] 89.3 fL 81-[address] [facility] Hematocrit Auto (Bld) [Volum e fraction]Ordered By: Nic Kern on 10-21-2022 Hematocrit (Bld) [Volume fraction] 38.3 % 37-47 [facility] - Chemistry and C hemistry - challengeOrdered By: Nic Kern on 10-21-2022 ALP [Catalytic activity/Vol] 94 U/L 45-117 [facility] ALT [Catalytic activity/Vol] 33 U/L 13-56 [facility] CO2 [Moles/Vol] 25.0 mmol/L 21.0-32.0 [facility] Globulin (S) [Mass/Vol] 4.0 g/dL 2.2-4.2 [facility] Urea nitrogen/Creatinine [Mass ratio] 21.6 mg/mg 10-20 [facility] - Hematology and Cell countsOrdered By: Nic Kern on 10-21-2022 Erythrocyte distribution width (RBC) [Entitic vol] 44.2 fL 35.1-43.9 [facility] Erythrocyte distribution width (RBC) [Ratio] 13.6 % 11.6-14.6 [facility] Immature granulocytes/100 WBC (Bld) 0.500 % 0.0-0.9 [facility] Comment on above: IG% - Immature Granu locytes (promyelocytes, myelocytes and metamyelocytes) > 1% indicates that a LEFT SHIFT is Present. MCH (RBC) [Entitic mass] 28.2 pg 27.0-32.0 [facility] Nucleated RBC/100 WBC (Bld) [Ratio] 0 % 0-5 [facility] MCHC Auto (RBC) [Mass/Vol]Or dered By: Nic Kern on 10-21-2022 MCHC (RBC) [Mass/Vol] 31.6 g/dL 32-36 [facility] No Panel InformationOrdered By: Nic Kern on 10-21-2022 Estimated GFR (MDRD) Amer 99 mL/min >60 [facility] Comment on above: GFR Calc Estimated GFR (MDRD) Non-Af Amer 82 mL/min >60 [facility] Comment on above: Non- GFR Calc Thyroid Stimulating Hormone (TSH) 1.16 uIU/mL 0.358-3.74 [facility] Vitamin D 25-Hydroxy 19.8 ng/mL [facility] Comment on above: Vitamin D 25(OH) Sta tus Range Deficiency <20 ng/mL (50nmol/L) Insufficiency 20 - 30 ng/mL (50 - 75 nmol/L) Sufficiency 30 - 100 ng/mL (75 - 250 nmol/L) Toxicity >100 ng/mL (>250 nmol/L) Platelets bldOrdered By: Nic Kern on 10-21-2022 Platelets (Bld) [#/Vol] 341 10*3/uL 150-450 [facility] Serum or plasma albumin david urement (mass/volume)Ordered By: Nic Kern on 10-21-2022 Albumin [Mass/Vol] 3.7 g/dL 3.2-5.0 [facility] Serum or plasma albumin/glob ulin mass ratioOrdered By: Nic Kern on 10-21-2022 Albumin/Globulin [Mass ratio] 0.9 {ratio} 0.9-2.4 [facility] Serum or plasma calcium david urement (mass/volume)Ordered By: iNc Kern on 10-21-2022 Calcium [Mass/Vol] 10.4 mg/dL 8.5-10.1 [facility] Serum or plasma creatinine m easurement (mass/volume)Ordered By: Nic Kern on 10-21-2022 Creatinine [Mass/Vol] 0.74 mg/dL 0.55-1.02 [facility] Comment on above: The validity of the calculated GFR & GFRAA in patients over 70 years has not been determined. Clinical correlation is essential. Serum or plasma urea nitroge n measurement (mass/volume)Ordered By: Nic Kern on 10-21-2022 Urea nitrogen [Mass/Vol] 16 mg/dL 7-18 [facility] Thin prep Papanicolaou smear with manual screeningOrdered By: Nic Kern on 10-21-2022 Thin prep Papanicolaou smear with manual screening 24 U/L 15-37 [facility] Thin prep Papanicolaou smear with manual screening 9 5-15 [facility] - Microbiology an d Antimicrobial susceptibilityOrdered By: Dr. Kern on 09-12-2022 SARS-CoV-2 (COVID-19) RNA OSCAR+probe Ql (Unsp spec) Not detected Not Detect [facility] Comment on above: Normal Reference Ran ge: Not DetectedMethod:(RT-PCR) real-time reverse transcriptase PCRLuminex Netseer Instrument*The Food and Drug Administration (FDA) has issued an Emergency Use Authorization (EAU) for the JAGRUTI SARS-CoV-2 Assay for the rapid detection of the virus that causes COVID-19. This test has been validated, but the FDAs independent review of this validation is pending.*Negative results do not preclude infection and should not be used as the sole basis for treatment or patient management. Optimum specimen types and timing for peak viral levels during infections caused by SARS-CoV-2 have not been determined. Collection of multiple specimens from the same patient may be necessary to detect the virus. The possibility of a false negative result should be considered if the patient has clinical presentation or has had recent exposure. No Panel InformationOrdered By: Dr. Kern on 09-12-2022 Influenza Types A,B Direct FA (MARLA) [facility] RSV Ag EIAOrdered By: Dr. Mitesh sierra on 09-12-2022 RSV Ag Immune stain Ql (Tiss) [facility] Absolute lymphocyte counton 04-16-2022 Lymphocytes Auto (Unsp spec) [#/Vol] 2.63 10*3/uL 0.83-4.51 [facility] Work Phone: Basophil percentageon 2021 Basophils/100 WBC (Bld) 0.5 % 0-[address] [facility] Work Phone: Bilirubin [Mass/Vol] 0.40 mg/dL 0.20-1.00 [facility] Work Phone: Comment on above: For patients on eltr ombopag therapy, use of Dimension [place] TBIL is not recommended. Chloride [Moles/Vol] 104 mmol/L 98-107 [facility] Work Phone: Cholesterol [Mass/Vol] 102 mg/dL <200 [facility] Work Phone: Comment on above: <200 mg/dL Desirable 200-240 mg/dL Borderline >240 mg/dL High Risk Eosinophils/100 WBC (Bld) 2.6 % 0-5 [facility] Work Phone: Glucose [Mass/Vol] 101 mg/dL 74-106 [facility] Work Phone: Comment on above: Fasting Glucose resu lt from 100 to 125 mg/dL suggests IMPAIRED HOMEOSTASIS per A.D.A. criteria. Neutrophils (Bld) [#/Vol] 6.6 10*3/uL 2.0-7.7 [facility] Work Phone: Neutrophils/100 WBC (Bld) 61.2 % 47-70 [facility] Work Phone: Potassium [Moles/Vol] 4.2 mmol/L 3.5-5.1 [facility] Work Phone: Comment on above: Slight Hemolysis, Re sult may be falsely increased. Protein [Mass/Vol] 7.1 g/dL 6.4-8.2 [facility] Work Phone: Sodium [Moles/Vol] 139 mmol/L 136-145 [facility] Work Phone: Triglyceride [Mass/Vol] 140 mg/dL <[address] [facility] Work Phone: Comment on above: The drugs N-Acetylcy steine and Metamizole may falsely depress this assay.Serum Triglycerides Reference Interval Normal <150 mg/dL Borderline high 150 - 199 mg/dL High 200 - 499 mg/dL Very High > or = 500 mg/dL WBC (Bld) [#/Vol] 10.8 10*3/uL 4.4-11.0 [facility] Work Phone: Blood erythrocytes count (nu mber/volume)on 04-16-2022 RBC (Bld) [#/Vol] 4.03 10*6/uL 4.2-5.4 [facility] Work Phone: Blood hemoglobin measurement (mass/volume)on 04-16-2022 Hemoglobin (Bld) [Mass/Vol] 11.7 g/dL 12.0-15.0 [facility] Work Phone: Blood lymphocytes/100 leukoc yteson 04-16-2022 Lymphocytes/100 WBC (Bld) 24.5 % 19-41 [facility] Work Phone: Blood monocytes/100 leukocyt eson 04-16-2022 Monocytes/100 WBC (Bld) 10.2 % 0-[address] [facility] Work Phone: Blood platelet mean volumeon 04-16-2022 Platelet mean volume (Bld) [Entitic vol] 10.4 fL 6.2-12.0 [facility] Work Phone: Determination of erythrocyte mean corpuscular volume (MCV)on 04-16-2022 MCV (RBC) [Entitic vol] 92.1 fL 81-[address] [facility] Work Phone: Hematocrit Auto (Bld) [Volum e fraction]on 04-16-2022 Hematocrit (Bld) [Volume fraction] 37.1 % 37-47 [facility] Work Phone: Laboratory - Chemistry and C hemistry - challengeon 04-16-2022 ALP [Catalytic activity/Vol] 98 U/L 45-117 [facility] Work Phone: ALT [Catalytic activity/Vol] 33 U/L 13-56 [facility] Work Phone: CO2 [Moles/Vol] 29.0 mmol/L 21.0-32.0 [facility] Work Phone: Globulin (S) [Mass/Vol] 3.7 g/dL 2.2-4.[address] [facility] Work Phone: Urea nitrogen/Creatinine [Mass ratio] 24.6 mg/mg 10-20 [facility] Work Phone: Laboratory - Hematology and Cell countson 04-16-2022 Erythrocyte distribution width (RBC) [Entitic vol] 45.3 fL 35.1-43.9 [facility] Work Phone: Erythrocyte distribution width (RBC) [Ratio] 13.3 % 11.6-14.6 [facility] Work Phone: Immature granulocytes/100 WBC (Bld) 1.000 % 0.0-0.9 [facility] Work Phone: Comment on above: IG% - Immature Granu locytes (promyelocytes, myelocytes and metamyelocytes) > 1% indicates that a LEFT SHIFT is Present. MCH (RBC) [Entitic mass] 29.0 pg 27.0-32.0 [facility] Work Phone: Nucleated RBC/100 WBC (Bld) [Ratio] 0 % 0-5 [facility] Work Phone: MCHC Auto (RBC) [Mass/Vol]on 04-16-2022 MCHC (RBC) [Mass/Vol] 31.5 g/dL 32-36 [facility] Work Phone: No Panel Informationon 04-16 Estimated GFR (MDRD) Amer 101 mL/min >60 [facility] Work Phone: Comment on above: GFR Calc Estimated GFR (MDRD) Non-Af Amer 83 mL/min >60 [facility] Work Phone: Comment on above: Non- GFR Calc Thyroid Stimulating Hormone (TSH) 1.62 uIU/mL 0.358-3.74 [facility] Work Phone: Vitamin D 25-Hydroxy 19.6 ng/mL [facility] Work Phone: Comment on above: Vitamin D 25(OH) Sta tus Range Deficiency <20 ng/mL (50nmol/L) Insufficiency 20 - 30 ng/mL (50 - 75 nmol/L) Sufficiency 30 - 100 ng/mL (75 - 250 nmol/L) Toxicity >100 ng/mL (>250 nmol/L) Platelets bldon 04-16-2022 Platelets (Bld) [#/Vol] 290 10*3/uL 150-450 [facility] Work Phone: Serum or plasma albumin david urement (mass/volume)on 04-16-2022 Albumin [Mass/Vol] 3.4 g/dL 3.2-5.0 [facility] Work Phone: Serum or plasma albumin/glob ulin mass ratioon 04-16-2022 Albumin/Globulin [Mass ratio] 0.9 {ratio} 0.9-2.4 [facility] Work Phone: Serum or plasma calcium david urement (mass/volume)on 04-16-2022 Calcium [Mass/Vol] 9.2 mg/dL 8.5-10.1 [facility] Work Phone: Serum or plasma cholesterol in HDL measurement (mass/volume)on 04-16-2022 Cholesterol in HDL [Mass/Vol] 56 mg/dL >40 [facility] Work Phone: Comment on above: The drugs N-Acetylcy steine and Metamizole may falsely depress this assay. Reference Range HDL <40 mg/dL Low HDL Cholesterol HDL >or= 60 mg/dL High HDL Cholesterol Serum or plasma cholesterol in VLDL measurement (mass/volume)on 04-16-2022 Cholesterol in VLDL [Mass/Vol] 28 mg/dL 5-40 [facility] Work Phone: Serum or plasma creatinine m easurement (mass/volume)on 04-16-2022 Creatinine [Mass/Vol] 0.73 mg/dL 0.55-1.02 [facility] Work Phone: Comment on above: The validity of the calculated GFR & GFRAA in patients over 70 years has not been determined. Clinical correlation is essential. Serum or plasma low density lipoprotein (LDL) cholesterol measurement (mass/volume)on 04-16-2022 Cholesterol in LDL [Mass/Vol] 18 mg/dL 0-130 [facility] Work Phone: Serum or plasma urea nitroge n measurement (mass/volume)on 04-16-2022 Urea nitrogen [Mass/Vol] 18 mg/dL 7-18 [facility] Work Phone: Thin prep Papanicolaou smear with manual screeningon 04-16-2022 Thin prep Papanicolaou smear with manual screening 18 U/L 15-37 [facility] Work Phone: Comment on above: Slight Hemolysis, Re sult may be falsely increased. Thin prep Papanicolaou smear with manual screening 6 5-15 [facility] Work Phone: Vital Signs Date Time Vital Sign Value Performing Clinician Facility 09-09-2024 11:08-0500 Body height 167.6 cm Gwendolyn Torrez ACCOUNTING/FINANCE TUTOR Work Phone: [facility] 09-09-2024 11:08-0500 Body mass index (BMI) [Ratio] 39.54 kg/m2 Gwendolyn Mcnealt ACCOUNTING/FINANCE TUTOR Work Phone: [facility] 09-09-2024 11:08-0500 Body weight 111.13 kg Gwendolyn Mcnealt ACCOUNTING/FINANCE TUTOR Work Phone: [facility] 09-09-2024 11:08-0500 Diastolic blood pressure 84 mm[Hg] Gwendolyn Mcnealt ACCOUNTING/FINANCE TUTOR Work Phone: [facility] 09-09-2024 11:08-0500 Heart rate 77 /min Gwendolyn Mcnealt ACCOUNTING/FINANCE TUTOR Work Phone: [facility] 09-09-2024 11:08-0500 SaO2% (BldA) [Mass fraction] 94 % Gwendolyn Mcnealt ACCOUNTING/FINANCE TUTOR Work Phone: [facility] 09-09-2024 11:08-0500 Systolic blood pressure 126 mm[Hg] Gwendolyn Alstonandt ACCOUNTING/FINANCE TUTOR Work Phone: [facility] 05-29-2022 13:45-0400 Body height 167.[address] Nic Kern Work Phone: [facility] 05-29-2022 13:45-0400 Body mass index (BMI) [Ratio] 36.4 kg/m2 Dr. Nic Kern Work Phone: [facility] 05-29-2022 13:45-0400 Body temperature 98.8 [degF] Dr. Nic Kern Work Phone: [facility] 05-29-2022 13:45-0400 Body weight 102.[address] Nic Kern Work Phone: [facility] 05-29-2022 13:45-0400 Diastolic blood pressure 69 mm[Hg] Dr. Nic Kern Work Phone: [facility] 05-29-2022 13:45-0400 Heart rate 79 /min Dr. Nic Kern Work Phone: [facility] 05-29-2022 13:45-0400 Respiratory rate 18 /min Dr. Nic Kern Work Phone: [facility] 05-29-2022 13:45-0400 SaO2% (BldA) [Mass fraction] 97 % Dr. Nic Kern Work Phone: [facility] 05-29-2022 13:45-0400 Systolic blood pressure 110 mm[Hg] Dr. Nic Kern Work Phone: [facility] Encounters Encounter Date Encounter Type Care Provider Facility Start: 11-15-2024 End: 11-15-[address] Nic Kern MD Work Phone: [facility] Work Phone: Start: 11-15-2024 End: 11-15-[address] Nic Kern MD -Laboratory Work Phone: Start: 11-15-2024 End: 11-15-2024 ambulatory Nic Cisse:[facility] Start: 10-25-2024 End: 10-25-[address] Nic Kern MD Work Phone: [facility] Work Phone: Start: 10-25-2024 End: 10-25-[address] Nic Kern MD -Laboratory, Phy Office 3rd Flr Start: 10-25-2024 End: 10-25-2024 ambulatory Nic [facility] Facility:[facility] Start: 09-09-2024 End: 09-09-2024 Bamboo flowsheet Gwendolyn S Weygandt ACCOUNTING/FINANCE TUTOR Work Phone: [facility] Start: 09-09-2024 End: 09-09-2024 Bamboo flowsheet Gwendolyn S Weygandt ACCOUNTING/FINANCE TUTOR Work Phone: [facility] Start: 09-09-2024 End: 09-09-2024 Telephone encounter Gwendolyn Alstonandt ACCOUNTING/FINANCE TUTOR Work Phone: [facility] Start: 09-09-2024 End: 09-09-2024 ambulatory GWENDOLYN S WEYGANDT Not Available Start: 09-09-2024 End: 09-09-2024 Office outpatient visit 25 minutes Gwendolyn S Weelysiaandt ACCOUNTING/FINANCE TUTOR Work Phone: [facility] Comment on above: THEE (obstructive sle ep apnea) (Primary Dx) Start: 08-10-2024 End: 08-10-[address] Nic Kern MD -Pulmonary Services/Neurology Work Phone: Start: 08-10-2024 End: 08-10-2024 ambulatory Nic [facility] [place] Facility:[facility] Start: 06-26-2024 End: 06-26-2024 ambulatory [facility] Facility:[facility] Start: 05-17-2024 End: 05-17-2024 ambulatory [facility] Facility:[facility] Start: 05-12-2024 End: 05-12-2024 ambulatory [facility] Facility:[facility] Start: 12-15-2023 ambulatory Nic [facility] Facility:[facility] Start: 11-14-2023 End: 11-14-2023 ambulatory [facility] Work Phone: Start: 11-14-2023 End: 11-14-2023 Patient encounter procedure [facility]-Laboratory, Phy Office 3rd Flr Start: 04-16-2023 End: 04-16-2023 ambulatory [facility] Work Phone: Start: 04-16-2023 End: 04-16-2023 [facility] Start: 10-21-2022 End: 10-21-2022 ambulatory [facility] Work Phone: Start: 10-21-2022 End: 10-21-2022 [facility] Start: 09-12-2022 End: 09-12-[address] Nic Kern Work Phone: [facility] Work Phone: Start: 09-12-2022 End: 09-12-[address] Nic Kern Work Phone: [facility]-Pulmonary Services/Neurology Start: 06-04-2022 End: 06-04-[address] Nic Kern Work Phone: [facility]-Outpatient Bone Densitometry Start: 05-29-2022 End: 05-29-[address] Nic Kern Work Phone: [facility] Start: 04-16-2022 End: 04-16-[address] Nic Kern Work Phone: [facility] Work Phone: Start: 04-16-2022 End: 04-16-[address] Nic Kern Work Phone: [facility]-Laboratory, Phy Office 3rd Flr Start: 04-10-2022 End: 04-10-[address] Nic Kern Work Phone: [facility] Work Phone: Start: 04-10-2022 End: 04-10-[address] [facility] Start: 02-27-2022 End: 02-27-[address] Nic Kern Work Phone: [facility] Procedures Date Procedure Procedure Detail Performing Clinician Start: 10-25-2024 SARS-CoV-2, Influenz a & RSV (PCR) Dr. Nic Kern MD Work Phone: Start: 08-10-2024 SARS-CoV-2, Influenz a & RSV (PCR) Dr. Nic Kern MD Work Phone: Start: 06-04-2022 Dual energy X-ray absorptiometry Dr. Nic Kern Work Phone: Start: 04-10-2022 Diagnostic radiograp hy of abdomen, decubitus and erect Dr. Nic Kern Work Phone: Start: 04-10-2022 Radiography of thora cic spine Dr. Nic Kern Work Phone: Start: 02-27-2022 Radiologic examinati on of knee Dr. Nic Kern Work Phone: Start: 12-07-2015 Mammography Gwendolyn sandoval ACCOUNTING/FINANCE TUTOR Work Phone: Influenza Types A,B Direct FA (MARLA) Dr. Nic Kern Work Phone: Respiratory syncytia l virus antigen assay Dr. Nic Kern Work Phone: Plan of Treatment Date Care Activity Detail Author Start: 01-22-2027 Screening for malign ant neoplasm of colon [facility] Start: 06-21-2017 Pneumococcal Vaccine : 65+ Years (2 of 2 - PPSV23 or PCV20) Pneumococcal Vaccine: 65+ Years (2 of 2 - PPSV23 or PCV20) [facility] Start: 12-06-2016 Screening for malign ant neoplasm of breast Mammogram [facility] Start: 1950 Screening for malign ant [facility]oplasm [facility] colon [facility] Healthcare Immunizations Immunization Date Immunization Notes Care Provider Fa cility 11-22-2020 Covid (Nikko & Nikko) Dr. Nic Kern Work Phone: [facility] 05-22-[address] Nic Kern Work Phone: [facility] Payers Date Payer Category Payer Medicare (Managed Care) [employer] Member Subscriber Plan / Payer (Effective 2024-Present) Name: Solitario Quintanaa Relation to Subscriber: Self Name: LilianSolitarioa Payer ID: Not on file Group ID: [id number] Type: Not on file Address: [place] [id number] 2024 Medicare [id number] 2023 Private Health Insurance [id number] 2023 Self-pay [id number] 2015 Medicare [employer] MEDICARE PPO [id number] 1950 Unknown [id number] Unknown [facility] PACKAGE PLAN [id number] Unknown [id number] Unknown [id number] Unknown [id number] Unknown [id number] Unknown [id number] Unknown [id number] Unknown [id number] Social History Date Type Detail Facility Start: 02-27-2022 End: 02-27-2022 Tobacco smoking status AKIS Unknown if ever smoked [facility] Start: 12-05-2020 Non-smoker [facility] Start: 1950 Sex Assigned At Female [facility] Start: 02-27-2022 End: 07-17-2023 Tobacco smoking status AKIS Ex-smoker [facility] History of tobacco use [facility] History of tobacco use Cigarette Smoker [facility] Start: 07-17-2023 Tobacco use and exposure Smokeless tobacco non-user [facility] Start: 07-17-2023 End: 09-09-2024 Alcoholic beverage intake Lifetime non-drinker (finding) [facility] Start: 07-17-2023 End: 09-09-2024 History of Social function [facility] Start: 07-17-2023 End: 09-09-2024 Tobacco use panel [facility] Start: 1950 Sex assigned at Not on file [facility] Start: 11-02-2024 End: 11-18-2024 Sex Female (finding) [facility] Medical Equipment Procedure Code Equipment Code Equipment Origin al Text Equipment Identifier Dates CEMENT,HV SIMPLEX FDA Start: 12-19-2020 CEMENT,HV SIMPLEX FDA Start: 12-19-2020 asymmetric patella FDA Start: 12-19-2020 cruciate retaini ng femoral FDA Start: 12-19-2020 primart tibial baseplater FDA Start: 12-19-2020 tibial bearing insert cs FDA Start: 12-19-2020 CEMENT,HV SIMPLEX FDA Start: 02-27-2021 CEMENT,HV SIMPLEX FDA Start: 02-27-2021 ([id number]) Uncoated knee fe mur prosthesis, metallic ([id number] FDA Start: 02-27-2021 ([id number]) Uncoated knee ti brendon prosthesis, metallic ()[id number] FDA Start: 02-27-2021 ([id number]) Reverse shoulder prosthesis head ()[id number] FDA Start: 02-27-2021 ([id number]) Tibial insert [id number] FDA Start: 02-27-2021 CEMENT,HV SIMPLEX FDA Start: 12-19-2020 CEMENT,HV SIMPLEX FDA Start: 12-19-2020 asymmetric patella FDA Start: 12-19-2020 cruciate retaini ng femoral FDA Start: 12-19-2020 primart tibial baseplater FDA Start: 12-19-2020 tibial bearing insert cs FDA Start: 12-19-2020 CEMENT,HV SIMPLEX FDA Start: 02-27-2021 CEMENT,HV SIMPLEX FDA Start: 02-27-2021 CEMENT,HV SIMPLEX FDA Start: 12-19-2020 CEMENT,HV SIMPLEX FDA Start: 12-19-2020 asymmetric patella FDA Start: 12-19-2020 cruciate retaini ng femoral FDA Start: 12-19-2020 primart tibial baseplater FDA Start: 12-19-2020 tibial bearing insert cs FDA Start: 12-19-2020 CEMENT,HV SIMPLEX FDA Start: 02-27-2021 CEMENT,HV SIMPLEX FDA Start: 02-27-2021 CEMENT,HV SIMPLEX FDA Start: 12-19-2020 CEMENT,HV SIMPLEX FDA Start: 12-19-2020 asymmetric patella FDA Start: 12-19-2020 cruciate retaini ng femoral FDA Start: 12-19-2020 primart tibial baseplater FDA Start: 12-19-2020 tibial bearing insert cs FDA Start: 12-19-2020 CEMENT,HV SIMPLEX FDA Start: 02-27-2021 CEMENT,HV SIMPLEX FDA Start: 02-27-2021 CEMENT,HV SIMPLEX FDA Start: 12-19-2020 CEMENT,HV SIMPLEX FDA Start: 12-19-2020 asymmetric patella FDA Start: 12-19-2020 cruciate retaini ng femoral FDA Start: 12-19-2020 primart tibial baseplater FDA Start: 12-19-2020 tibial bearing insert cs FDA Start: 12-19-2020 CEMENT,HV SIMPLEX FDA Start: 02-27-2021 CEMENT,HV SIMPLEX FDA Start: 02-27-2021 CEMENT,HV SIMPLEX FDA Start: 12-19-2020 CEMENT,HV SIMPLEX FDA Start: 12-19-2020 asymmetric patella FDA Start: 12-19-2020 cruciate retaini ng femoral FDA Start: 12-19-2020 primart tibial baseplater FDA Start: 12-19-2020 tibial bearing insert cs FDA Start: 12-19-2020 CEMENT,HV SIMPLEX FDA Start: 02-27-2021 CEMENT,HV SIMPLEX FDA Start: 02-27-2021 CEMENT,HV SIMPLEX FDA Start: 12-19-2020 CEMENT,HV SIMPLEX FDA Start: 12-19-2020 asymmetric patella FDA Start: 12-19-2020 cruciate retaini ng femoral FDA Start: 12-19-2020 primart tibial baseplater FDA Start: 12-19-2020 tibial bearing insert cs FDA Start: 12-19-2020 CEMENT,HV SIMPLEX FDA Start: 02-27-2021 CEMENT,HV SIMPLEX FDA Start: 02-27-2021 CEMENT,HV SIMPLEX FDA Start: 12-19-2020 CEMENT,HV SIMPLEX FDA Start: 12-19-2020 asymmetric patella FDA Start: 12-19-2020 cruciate retaini ng femoral FDA Start: 12-19-2020 primart tibial baseplater FDA Start: 12-19-2020 tibial bearing insert cs FDA Start: 12-19-2020 CEMENT,HV SIMPLEX FDA Start: 02-27-2021 CEMENT,HV SIMPLEX FDA Start: 02-27-2021 Telephone encounter Note 09-09-2024 Telephone Encounter - Gwendolyn Torrez NP - 09/09/2024 11:34 AM EST Note Date & Type Note Facility 09-09-2024 Telephone encount er Note Please fax pap supply rx to [facility] thanks [facility] Note 09-09-2024 Telephone Encounter - Gwendolyn Torrez NP - 09/09/2024 11:34 AM EST Note Date & Type Note Facility 09-09-2024 Miscellaneous Notes Formattin g of this note might be different from the original. Please fax pap supply rx to [facility] in [facility] thanks documented in this encounter [facility] History of Present illness Narrative 09-09-2024 Gwendolyn Torrez NP - 09/09/2024 11:00 AM EST Note Date & Type Note Facility 09-09-2024 History of Presen t illness Narrative Images from the original note were not included. CHIEF COMPLAINT: Chief Complaint Patient presents with Sleep Apnea HISTORY OF PRESENT ILLNESS: 74 year old female presented to office to follow up on thee. Wears pap nightly, sleeps well at night, denies snoring through mask, coughing or gasping, denies eds. Tolerates pap well. Good compliance. Denies further questions or concerns. Current Outpatient Medications on File Prior to Visit Medication Sig Dispense Refill ALPHA LIPOIC ACID-BIOTIN PO Take 200 mg by mouth in the morning. atorvastatin (Lipitor) 40 MG tablet Take 40 mg by mouth at bedtime. Nkkzfwc-Lglvtclctr-Quqrvpf D (CITRACAL +D3 PO) Take 2 tablets by mouth in the morning. cholecalciferol (Vitamin D-3) 25 MCG (1000 UT) capsule Take 1,000 Units by mouth in the morning. famotidine (Pepcid) 40 MG tablet Take 40 mg by mouth in the morning. IFerex 150 150 MG capsule Take 150 mg by mouth Daily KLOR-CON 10 MEQ ER tablet Take 10 mEq by mouth in the morning. levothyroxine (Synthroid, Levoxyl) 50 MCG tablet Take 50 mcg by mouth 1 (one) time each day at the same time. losartan-hydroCHLOROthiazide (Hyzaar) 50-12.5 MG tablet Take 1 tablet by mouth in the morning. metFORMIN (Glucophage) 1000 MG tablet Take 1,000 mg by mouth every 12 (twelve) hours. pioglitazone (Actos) 30 MG tablet Take 30 mg by mouth in the morning. polyethylene glycol, PEG, 3350 (MiraLax) 17 g packet Take by mouth. saccharomyces boulardii (Florastor) 250 MG capsule Take 250 mg by mouth in the morning and 250 mg before bedtime. (Patient not taking: Reported on 09/09/2024) No current facility-administered medications on file prior to visit. Past Medical History: Diagnosis Date Diabetes mellitus (CMS/HCC) Hyperlipidemia (CMS/HCC) Hypertension (CMS/HCC) Hypothyroidism (CMS/HCC) THEE (obstructive sleep apnea) Past Surgical History: Procedure Laterality Date BREAST SURGERY Right THYROID TONSILLECTOMY TOTAL KNEE ARTHROPLASTY Bilateral Family History Problem Relation Name Age of Onset Cancer Mother Brain cancer Father Bilateral breast cancer Sister Heart disease Sister Social History Tobacco Use Smoking status: Former Types: Cigarettes Smokeless tobacco: Never Substance Use Topics Alcohol use: Never ALLERGIES: Patient has no known allergies. REVIEW OF SYSTEMS: General: Appetite change: denies. Chills: denies. Fever: denies. Allergy/Immunology: Unusual rection to medications, food, animals or insects reaction: denies. Ophthalmologic: Visual acuity change: denies. ENT: Decreased hearing: denies. Endocrine: Weight loss: denies. Respiratory: Cough: denies. Wheezing: denies. Cardiovascular: Chest pain: denies. Palpitations: denies. Gastrointestinal: Abdominal pain: denies. Difficulty swallowing: denies Hematology: Bleeding problems: denies. Genitourinary: Painful urination: denies. Musculoskeletal: Joint pain: denies. Joint edema: denies. Skin: Rash: denies. Neurologic: Ataxia: denies, Tremor: denies. Psychiatric Suicidal thoughts: denies. Also see HPI for elements of ROS documented therein and for details of positive findings, which shall supersede the foregoing. OBJECTIVE: Objective Vitals: 09/09/24 1108 BP: 126/84 Pulse: 77 SpO2: 94% Weight: 245 lb Height: 5' 6 Body mass index is 39.54 kg/m . Examination: General Exam: pleasant, well nourished, well developed, in no acute distress Head: normocephalic, atraumatic Eyes: extraocular movement intact (EOMI), pupils equal, round, reactive to light, upper eyelids normal , lower eyelids normal Ears: no obvious hearing deficit Nose: Nares patent Neck/Throat: neck supple, full range of motion Oral Cavity: mucosa moist Skin: warm and dry Heart: no murmurs, regular rate and rhythm, S1, S2 normal Lungs: clear to auscultation bilaterally, good air movement, no wheezes, rales, rhonci, speaks in full sentences Chest: normal shape and expansion Abdomen: bowel sounds present, soft, nontender, nondistended, no guarding or rigidity Extremities: no edema, no cyanosis Musculoskeletal: no swelling or deformity Neurologic: nonfocal, alert and oriented, cognitive exam grossly normal, cranial nerves 2-12 grossly intact, motor strength 5/5 bilateral symmetrically, no drift, coordination intact, sensory exam intact, gait normal Psych: pleasant, cooperative, good eye contact, speech clear, judgement and insight good ASSESSMENT/PLAN: 1. THEE (obstructive sleep apnea) (Primary) Autopap 5-20 cmH2O Wear nightly, benefiting from treatment Good compliance Pt has been fully educated on their diagnosis, test results, treatment options, follow up plan, and return instructions. documented in this encounter [facility] Evaluation note Note Date & Type Note Facility Evaluation note Diagnosis Onset Date History of total left knee replacement acute History of total right knee replacement acute [facility] Work Phone: Evaluation note Note Date & Type Note Facility Evaluation note Diagnosis Onset Date High serum vitamin B12 chron ic Iron deficiency anemia chron ic [facility] Work Phone: Evaluation note Note Date & Type Note Facility Evaluation note No assessment information availa ble [facility] Work Phone: Evaluation note Note Date & Type Note Facility Evaluation note Diagnosis THEE (obstructive sleep apnea)- Primary Obstructive sleep apnea (adult) (pediatric) documented in this encounter [facility] Reason for referral (narrative) Note Date & Type Note Facility Reason for referral (narrative) No reason for referral information available [facility] Work Phone: Chief Complaint and Reason for Visit Chief Complaint LEFT KNEE xray Reason for Visit History of total lef t knee replacement History of total right knee replacement Chief Complaint 6MO LABS PRIOR POST KIKO CHILLS WITHOUT FEVER Reason for Visit High serum vitamin B 12 Iron deficiency anemia Chief Complaint CHILLS WITHOUT FEVER Chief Complaint Admit Date CHILLS August 10, 2024 7:40am Family History No Family History Records Found Relationship Condition Age at Onset Recorded Date/T river sister Malignant neoplasm Unknown father Malignant neoplasm Unknown grandfather Diabetes mellitus Unknown Advance Directives No Advanced Directives Records Found Advance Directive Response Recorded Date/ Time Advance Directives Yes September 21, 2020 3:12pm Living Will No July 09 11:22am Power of Airport Sales Agent No July 09, 2021 11:22am Advance Directive Response Recorded Date/ Time Advance Directives Yes September 21, 2020 2:12pm Living Will No July 09 10:22am Power of Airport Sales Agent No July 09, 2021 10:22am Advance Directive Response Recorded Date/ Time Advance Directives Yes September 21, 2020 3:12pm Summary Purpose Additional Source Comments Goals (unrecognized section and content) Goals may be documented in a n alternate sectionGoals may be documented in an alternate sectionGoals may be documented in an alternate sectionGoals may be documented in an alternate sectionGoals may be documented in an alternate sectionGoals may be documented in an alternate sectionGoals may be documented in an alternate section Care Teams (unrecognized sec tion and content) Team Status: Active Member Role Status Dates Dr. Nic Kern MD Family Provider Active Dr. Nic Kern MD Primary Care Provider Active Team Status: Inactive Member Role Status Dates Dr. Nic Kern MD Primary Care Provider, Referring Provider Active Dr. Wan Teran MD Active Kaleigh Marino ACCOUNTING/FINANCE TUTOR, ACCOUNTING/FINANCE TUTOR-C Attending Provider Active Team Status: Inactive Member Role Status Dates Dr. Nic Kern MD Primary Care Provi sia, Attending Provider, Referring Provider Active Team Status: Inactive Member Role Status Dates Dr. Nic Kern MD Primary Care Provider, Attending Provider Active Team Status: Inactive Member Role Status Dates Dr. Nic Kern MD Primary Care Provider Active Nic Kern MD Attending Provider Active Application Project Leader Relationship Specialty Start Date End Date Lydia Kern MD [address] [place] [phone] PCP - General Geriatric Medicine 07/17/23 Application Project Leader Relationship Specialty Start Date End Date Lydia Kern MD [address] [place] [phone] PCP - General Geriatric Medicine 07/17/23 Application Project Leader Relationship Specialty Start Date End Date Lydia Kern MD [address] [place] [phone] PCP - General Geriatric Medicine 07/17/23 Team Status: Inactive Member Role Status Dates Dr. Nic Kern MD Primary Care Provider Active Start: August 10, 2024 End: August 10, 2024 Dr. Nic Kern MD Attending Provider Active Start: August 10, 2024 End: August 10, 2024 Dr. Nic Kern MD Referring Provider Active Start: August 10, 2024 End: August 10, 2024 Team Status: Inactive Member Role Status Dates Dr. Nic Kern MD Primary Care Provider Active Start: October 25, 2024 End: October 25, 2024 Dr. Nic Kern MD Attending Provider Active Start: October 25, 2024 End: October 25, 2024 Team Status: Inactive Member Role Status Dates Dr. Nic Kern MD Primary Care Provider Active Start: November 15, 2024 End: November 15, 2024 Dr. Nic Kern MD Attending Provider Active Start: November 15, 2024 End: November 15, 2024 Dr. Nic Kern MD Referring Provider Active Start: November 15, 2024 End: November 15, 2024 Reason for Visit (unrecogniz ed section and content) Reason Comments Sleep Apnea INFORMATION SOURCE (unrecogn ized section and content) DATE CREATED AUTHOR 09/11/2024 [facility] DATE CREATED AUTHOR AUTHOR'S ORGANIZ ATION 11/21/2024 [facility] FOR RECORDS PERTAINING TO PATIENTS WHO ARE OR HAVE BEEN ENROLLED IN A CHEMICAL DEPENDENCY/SUBSTANCEABUSE PROGRAM, SOME INFORMATION MAY BE OMITTED. This clinical summary was aggregated from multiple sources. Caution should be exercised in using it in the provision of clinical care. This summary normalizes information from multiple sources, and as a consequence, information in this document may materially change the coding, format and clinical context of patient data. In addition, data may be omitted in some cases. CLINICAL DECISIONS SHOULD BE BASED ON THE PRIMARY CLINICAL RECORDS. [facility]. provides no warranty or guarantee of the accuracy or completeness of information in this document.
[2025-04-27 10:36] LABS: AST(SGOT) 24 U/L (<=31); Alanine Aminotransfer ALT/SGPT 23 U/L (<=34); Albumin, Serum 4.3 g/dL (3.4-4.8); Alkaline Phosphatase 113 U/L (35-104); Anion Gap 10 (5-15); BUN 23 mg/dL (4-19); BUN/Creat Ratio 27.2 RATIO (10-20); Calcium,Total 10.3 mg/dL (7.6-11.0); Carbon Dioxide 26.5 mmol/L (21.0-32.0); Chloride 102 mmol/L (98-108); Globulin 3.2 g/dL (2.2-4.2); Glucose 131 mg/dL (70-99); Potassium 4.4 mmol/L (3.3-5.1); Vitamin D,25 Hydroxy 18.3 ng/mL (30-100)
[2025-04-27 17:19] LABS: Xtra Tube Kwok EXTRA TUBE
== END | disposition home or self-care (01) ==
LOC: POLAB3 09:19
PROVIDERS: PCP Family Medicine Geriatric Medicine; Visit Provider Family Medicine Geriatric Medicine
DX: I10 Essential (primary) hypertension (principal); E03.9 Hypothyroidism, unspecified; E55.9 Vitamin D deficiency, unspecified
CPT/HCPCS: 36415; 80053; 82306; 84443; 85025